=== PATIENT | male | born 1950 | race Caucasian/White ===

== ENCOUNTER 2020-11-29 09:39 | Outpatient (REF) | payer MEDICARE, SELFPAY ==
[2020-11-29 11:36] LABS: Estimated Average Glucose 177 mg/dL; Hemoglobin A1c % 7.8 %
[2020-11-29 11:47] LABS: Alanine Aminotransferase 27 U/L (0-40); Albumin Level 4.5 g/dL (3.5-5.0); Alkaline Phosphatase 62 U/L (39-117); Anion Gap 14 (12-20); Aspartate Amino Transferase 22 U/L (5-37); Bilirubin Total 1.1 mg/dL (0.0-1.0); Blood Urea Nitrogen 23 mg/dL (9-16); Calcium 9.4 mg/dL (8.4-10.2); Carbon Dioxide 27 mmol/L (22-29); Chloride 104 mmol/L (96-108); Cholesterol 146 mg/dL; Estimated Glomerular Filt Rate > 60; Glucose Fasting 167 mg/dL (60-99); HDL Cholesterol 38 mg/dL; LDL Cholesterol Calculated 56 mg/dl; Potassium 5.4 mmol/L (3.3-5.1); Sodium 140 mmol/L (135-145); Triglycerides 260 mg/dL
[2020-11-29 11:54] LABS: Creatinine Urine 185.76 mg/dL
[2020-11-29 12:08] LABS: Microalbum/Creatinine Ratio Ur 342.3 ug/mg cr
[2020-11-29 12:12] LABS: TSH reflex Free T4 0.83 uIU/mL (0.32-4.0)
== END 2020-11-29 09:40 | disposition home or self-care (01) ==
LOC: HO.HMGCLDS 09:39
PROVIDERS: PCP Nurse Practitioner Family; Visit Provider Nurse Practitioner Family
DX: E11.9 Type 2 diabetes mellitus without complications (principal); I42.9 Cardiomyopathy, unspecified; I71.4 Abdominal aortic aneurysm, without rupture; Z12.5 Encounter for screening for malignant neoplasm of prostate
CPT/HCPCS: 36415; 80053; 80061; 82043; 83036; 84153; 84443

== ENCOUNTER 2020-11-30 10:51 | Outpatient (REF) | payer MEDICARE, SELFPAY ==
[2020-11-30 14:37] LABS: Anion Gap 13 (12-20); Carbon Dioxide 29 mmol/L (22-29); Chloride 100 mmol/L (96-108); Potassium 5.1 mmol/L (3.3-5.1); Sodium 137 mmol/L (135-145)
== END 2020-11-30 10:52 | disposition home or self-care (01) ==
LOC: HO.HMGCLDS 10:51
PROVIDERS: PCP Nurse Practitioner Family; Visit Provider Nurse Practitioner Family
DX: E87.5 Hyperkalemia (principal)
CPT/HCPCS: 36415; 80051

== ENCOUNTER → 2020-11-30 12:37 | Outpatient (REF) | payer MEDICARE, SELFPAY ==
--- NOTE | 2020-11-30 12:45 | CA_ITS ---
Transthoracic Echocardiogram Patient (Last, First, Middle): Juan Carlos Steele O Gender: Male Date of : 1950 Age: 70 Procedure Date: 11/30/2020 Procedure Type: Transthoracic Echocardiogram Location: OP Height: 177.8 cm Weight: 106.6 kg BSA: 2.24 m2 Heart Rate: bpm BP: 127 / 76 mmHg Robotic Welder: KAYLAH Tavares MD: Hiarm Carrington [facility] Community Development Officer: Ramon Mcclendon MD Symptoms: cadiomyopathy Study Quality: Good ECG Rhythm: Sinus Conclusions: - 1. Low normal LV systolic function with mild LVH with grade 1 diastolic dysfunction 2. Mild left atrial enlargement 3. Mild mitral and aortic regurgitation 4. No pericardial effusion Findings Left Ventricle Normal left ventricular cavity size. There is mildly increased left ventricular wall thickness. The left ventricular systolic function is low normal. The visually estimated ejection fraction is between 50-55%. Spectral Doppler is indicative of an impaired relaxation filling pattern. E/E prime ratio is <8, consistent with normal filling pressures. Evidence suggests grade I (mild) diastolic dysfunction. Right Ventricle Normal right ventricular cavity size and systolic function. Atria The left atrium is mildly dilated. There is lipomatous hypertrophy of the interatrial septum. Interatrial shunt cannot be excluded. The right atrium is normal in size. Aortic Valve There is mild calcification of the aortic valve. There is mild thickening of the aortic valve. There is no aortic valve stenosis. There is mild aortic valve regurgitation. Mitral Valve There is mild anterior and posterior mitral leaflet thickening. There is moderate mitral annular calcification. There is mild mitral valve regurgitation. There is no mitral valve stenosis. Pulmonic Valve The pulmonic valve was not well visualized. Tricuspid Valve Likely normal tricuspid valve structure and function. Tricuspid regurgitation envelope is inadequate for calculation of right ventricular systolic pressure. Great Vessels All visible segments of the aorta are normal in size. The pulmonary artery was not well visualized. Venous The inferior vena cava is normal in size and collapses greater than 50% with inspiration. Pericardium/Pleural There is no evidence of pericardial effusion. Prior Study Comparison No significant change compared to prior study dated: 09/23/2016. Measurements 2D Linear Measurements IVSd: 1.27 0.6-0.9/0.6-1.0 cm LVIDd: 6.04 3.9-5.3/4.2-5.9 cm LVIDd Index: 2.70 2.4-3.2/2.2-3.1 cm/m2 LVIDs: 4.48 2.0-3.6 cm LVPWd: 1.28 0.7-1.1 cm Ao Root: 4.30 2.1-3.5 cm LA Diam: 4.90 2.7-3.8/3.0-4.0 cm LAIDs Index: 2.19 1.5-2.3 cm/m2 LV Mass: 430.03 67-162/88-224 g LV Mass Index: 191.98 43-95/49-115 g/m2 LVOT Diam: 2.40 3.0+(-)1.3 cm 2D Systolic Function EF 4C: 50.10 >55% EF 2C: 49.30 >55% EF BiP: 48.00 >55% Mitral Valve MV Pk E: 0.52 MV PK A: 0.80 MV Decel Time: 215.00 E/A: 0.70 E'Lateral: 4.24 E'Medial: 5.98 E/E' Med: 8.70 E/E' Lat: 12.30 PHT: 63.00 MVA PHT: 3.49 Decel Ada: 2.42 Aortic Valve AoV Pk Gatito: 1.29 AoV Mn Gatito: 0.93 AoV VTI: 0.28 AoV Pk Grad: 7.00 Aov Mn Grad: 4.00 ALANIS Cont.VTI: 2.97 LVOT LVOT Pk Gatito: 0.79 LVOT Mn Gatito: 0.55 LVOT VTI: 0.18 LVOT Pk Grad: 3.00 LVOT Mn Grad: 1.00 LVOT Diam: 2.40 LVOT Area: 4.52 Diastolic Function MV Pk E: 0.52 MV Pk A: 0.80 E/A: 0.70 E'Medial: 5.98 E/E' Med: 8.70 E' Laterial: 4.24 E/E' Lat: 12.30 Great Vessels Aorta Ao Root-2D: 4.30 2.0-3.7 cm Ao Asc: 3.90 2.1-3.4 cm Ao Arch: 2.70 Updated in Other Vendor System with Status of Final Ramon Mcclendon MD electronically signed on 11/30/2020 5:47:24 PM with status of Final
== END ==
LOC: HO.CARD 12:37
PROVIDERS: PCP Nurse Practitioner Family; Visit Provider Nurse Practitioner Family
DX: I42.9 Cardiomyopathy, unspecified (principal)
CPT/HCPCS: 93306

== ENCOUNTER → 2020-12-25 14:39 | Outpatient (BNVA) | payer MEDICARE, SELFPAY | PROVIDERS: PCP Nurse Practitioner Family; Visit Provider Internal Medicine Cardiovascular Disease | DX: I25.10 Atherosclerotic heart disease of native coronary artery without angina pectoris (principal) | CPT/HCPCS: 93005; 99202 ==

== ENCOUNTER 2021-01-03 08:59 | Outpatient (REF) | payer MEDICARE, SELFPAY ==
--- NOTE | ~2021-01-03 | US_ITS ---
EXAMINATION: US SCREENING AORTIC CLINICAL INFORMATION: Abdominal aortic aneurysm COMPARISON: Abdominal ultrasound on 06/09/2012 TECHNIQUE: Ultrasound of the abdominal aorta was performed. FINDINGS: Real-time ultrasound of the abdominal aorta is performed. AP and transverse measurements were taken of the proximal, mid and distal aorta. Measurements were taken of the right and left iliac arteries. There is focal ectasia of the mid abdominal aorta measuring 2.6 x 2.3 cm. The proximal and distal aorta are normal in caliber. The left internal iliac artery is normal in caliber. There is a 2.1 x 1.8 cm right common iliac artery aneurysm. Incidental note is made of a left hepatic lobe cyst measuring 3.1 x 2.6 x 3.3 cm. US/US abdominal aortic aneurysm IMPRESSION: 1. Stable ectasia of the abdominal aorta measuring up to 2.6 cm. 2. 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
== END 2021-01-03 09:00 | disposition home or self-care (01) ==
LOC: HO.HMGCX 08:59
PROVIDERS: Visit Provider Nurse Practitioner Family
DX: I71.4 Abdominal aortic aneurysm, without rupture (principal)
CPT/HCPCS: 76706

== ENCOUNTER 2021-05-09 10:01 | Outpatient (REF) | payer MEDICARE, SELFPAY ==
[2021-05-09 11:17] LABS: Glucose Urine UA NEG (NEG); Leukocyte Esterase Urine 1+ (NEG); Nitrite Urine NEG (NEG); PH 5.5 (5.0-8.0); Specific Gravity - Urine 1.025 (1.005-1.025); UACC Culture Trigger YES; Urine Blood NEG (NEG); Urine Ketones 5 MG/DL (NEG); Urine Protein TRACE MG/DL (NEG-TRACE)
[2021-05-09 11:38] LABS: Estimated Average Glucose 146 mg/dL; Hemoglobin A1c % 6.7 %
[2021-05-09 11:41] LABS: Alanine Aminotransferase 18 U/L (0-40); Albumin Level 4.5 g/dL (3.5-5.0); Alkaline Phosphatase 55 U/L (39-117); Anion Gap 13 (12-20); Aspartate Amino Transferase 18 U/L (5-37); Bilirubin Total 1.8 mg/dL (0.0-1.0); Blood Urea Nitrogen 30 mg/dL (9-16); Calcium 9.7 mg/dL (8.4-10.2); Carbon Dioxide 25 mmol/L (22-29); Chloride 105 mmol/L (96-108); Cholesterol 125 mg/dL; Estimated Glomerular Filt Rate 60; Glucose Fasting 124 mg/dL (60-99); HDL Cholesterol 39 mg/dL; LDL Cholesterol Calculated 63 mg/dl; Potassium 5.3 mmol/L (3.3-5.1); Sodium 138 mmol/L (135-145); Total Protein 6.9 g/dL (6.5-8.0); Triglycerides 115 mg/dL
[2021-05-09 11:47] LABS: Appearance Urine CLEAR; Color Urine YELLOW
[2021-05-09 11:53] LABS: Mucus Urine 1+ /LPF; RBC Urine 0 /HPF (0); Squamous Epithelial Cell Urine 1+ /LPF
[2021-05-09 12:02] LABS: TSH reflex Free T4 0.38 uIU/mL (0.32-4.0)
== END 2021-05-09 10:02 | disposition home or self-care (01) ==
LOC: HO.HMGCLDS 10:01
PROVIDERS: PCP Nurse Practitioner Family; Visit Provider Nurse Practitioner Family
DX: E11.9 Type 2 diabetes mellitus without complications (principal); E78.1 Pure hyperglyceridemia
CPT/HCPCS: 36415; 80053; 80061; 81001; 81003; 83036; 84443; 87086

== ENCOUNTER 2021-05-25 10:02 | Outpatient (REF) | payer MEDICARE, SELFPAY ==
[2021-05-25 11:46] LABS: Anion Gap 14 (12-20); Bilirubin Direct 0.4 mg/dL (0.0-0.5); Bilirubin Total 0.9 mg/dL (0.0-1.0); Carbon Dioxide 24 mmol/L (22-29); Chloride 105 mmol/L (96-108); Cholesterol 116 mg/dL; HDL Cholesterol 39 mg/dL; LDL Cholesterol Calculated 55 mg/dl; Potassium 5.1 mmol/L (3.3-5.1); Sodium 138 mmol/L (135-145); Triglycerides 110 mg/dL
== END 2021-05-25 10:03 | disposition home or self-care (01) ==
LOC: HO.HMGCLDS 10:02
PROVIDERS: PCP Nurse Practitioner Family; Visit Provider Nurse Practitioner Family
DX: R17 Unspecified jaundice (principal); E11.9 Type 2 diabetes mellitus without complications; E87.5 Hyperkalemia
CPT/HCPCS: 36415; 80051; 80061; 82247; 82248

== ENCOUNTER → 2022-01-11 08:07 | Outpatient (BNVA) | payer MEDICARE, SELFPAY | PROVIDERS: PCP Nurse Practitioner Family; Referring Provider Nurse Practitioner Family; Visit Provider Internal Medicine Cardiovascular Disease | DX: I25.10 Atherosclerotic heart disease of native coronary artery without angina pectoris (principal); I42.9 Cardiomyopathy, unspecified; Z79.82 Long term (current) use of aspirin; Z79.899 Other long term (current) drug therapy | CPT/HCPCS: 93005; 99212 ==

== ENCOUNTER 2022-10-29 09:23 | Outpatient (REF) | payer MEDICARE, SELFPAY ==
[2022-10-29 11:41] LABS: Appearance Urine Clear; Color Urine Yellow; Glucose Urine UA Negative (Negative); Leukocyte Esterase Urine Small (1+) (Negative); Nitrite Urine Negative (Negative); Specific Gravity - Urine 1.015 (1.005-1.025); UMIC TRIGGER UACC YES; Urine Blood Negative (Negative); Urine Ketones Negative (Negative); Urine Protein Trace mg/dL (Neg-Trace)
[2022-10-29 13:20] LABS: Creatinine Urine 59.97 mg/dL; Microalbum/Creatinine Ratio Ur 223.4 ug/mg cr
[2022-10-29 14:11] LABS: MANUAL DIFF FLAG NO
[2022-10-29 14:23] LABS: Bacteria Urine None Seen (None Seen); Hyaline Casts Urine 0-2 /LPF (0-2); RBC Urine 0-2 /HPF (0-2); Squamous Epithelial Cell Urine 0-2 /HPF (0-2); UACC Culture Trigger YES
[2022-10-29 14:26] LABS: Basophils Absolute Auto 0.1 X10*3/uL (0.0-0.2); Basophils Percent Auto 0.7 % (0-2); Eosinophils Absolute Auto 0.2 X10*3/uL (0.0-0.4); Eosinophils Percent Auto 3.2 % (0-4); Hematocrit 43.8 % (42.0-52.0); Hemoglobin 14.5 g/dl (14.0-18.0); Imm Gran Abs Auto 0.02 X10*3/uL (0.00-0.03); Imm Gran Pct Auto 0.3 % (0.0-0.4); Lymphocytes Absolute Auto 1.6 X10*3/uL (1.2-4.9); Lymphocytes Percent Auto 23.6 % (20-40); Mean Corpuscular HGB Conc 33.1 g/dl (31.0-36.0); Mean Corpuscular Hemoglobin 31.7 pg (27.0-33.0); Mean Corpuscular Volume 95.6 fL (80.0-98.0); Mean Platelet Volume 9.3 fL (9.4-12.4); Monocytes Absolute Auto 0.6 X10*3/uL (0.1-1.2); Neutrophils Absolute Auto 4.4 x10*3/uL (2.0-8.3); Neutrophils Percent Auto 64.2 % (45-73); Platelet Count 250 X10*3/uL (160-400); Red Blood Count 4.58 X10*6/uL (4.60-5.80); Red Cell Distribution Width 12.5 % (11.0-16.0); White Blood Count 6.9 X10*3/uL (4.8-10.8)
[2022-10-29 15:32] LABS: Estimated Average Glucose 169 mg/dL; Hemoglobin A1c % 7.5 %
[2022-10-29 19:52] LABS: Alanine Aminotransferase 21 U/L (0-40); Albumin Level 4.5 g/dL (3.5-5.0); Alkaline Phosphatase 59 U/L (39-117); Anion Gap 18 (12-20); Aspartate Amino Transferase 19 U/L (5-37); Bilirubin Total 1.2 mg/dL (0.0-1.0); Blood Urea Nitrogen 25 mg/dL (9-16); Calcium 10.2 mg/dL (8.4-10.2); Carbon Dioxide 23 mmol/L (22-29); Chloride 103 mmol/L (96-108); Cholesterol 148 mg/dL; Estimated Glomerular Filt Rate > 60; Glucose Fasting 162 mg/dL (60-99); HDL Cholesterol 40 mg/dL; LDL Cholesterol Calculated 71 mg/dl; Potassium 4.7 mmol/L (3.3-5.1); Sodium 139 mmol/L (135-145); Triglycerides 186 mg/dL
[2022-10-29 20:25] LABS: TSH reflex Free T4 0.72 uIU/mL (0.32-4.0)
[2022-10-29 20:41] LABS: Prostate Specific Antigen Scr 2.09 ng/mL (<0.05-4.0)
== END 2022-10-29 09:24 | disposition home or self-care (01) ==
LOC: HO.HMGCLDS 09:23
PROVIDERS: PCP Nurse Practitioner Family; Visit Provider Nurse Practitioner Family
DX: Z12.5 Encounter for screening for malignant neoplasm of prostate (principal); E11.9 Type 2 diabetes mellitus without complications
CPT/HCPCS: 36415; 80053; 80061; 81001; 82043; 83036; 84153; 84443; 85025; 87086

== ENCOUNTER 2022-11-06 10:29 | Outpatient (REF) | payer MEDICARE, SELFPAY ==
--- NOTE | ~2022-11-06 | XR_ITS ---
EXAMINATION: XR SHOULDER, RIGHT CLINICAL INFORMATION: Pain. COMPARISON: None TECHNIQUE: AP external rotation, Grashey and scapula Y views of the right shoulder are submitted. FINDINGS: Bony alignment and mineralization are normal. The glenohumeral joint is intact and shows moderately severe osteoarthritic change. The acromioclavicular and coracoclavicular intervals are normal. There is mild osteoarthritic change of the acromioclavicular joint. There is narrowing of the rotator cuff interval, with a distal acromial undersurface osteophyte and cortical irregularity of the greater tuberosity of the proximal right humerus. No abnormal soft tissue calcification or foreign body is seen. There is no right pneumothorax. XR/XR shoulder LT min 2V IMPRESSION: 1. There is moderately severe osteoarthritic change of the right glenohumeral joint, and mild osteoarthritic change is seen of the right acromioclavicular joint. 2. Findings are consistent with right rotator cuff impingement. EXAMINATION: XR SHOULDER, LEFT CLINICAL INFORMATION: Pain. COMPARISON: Radiographs dated 06/03/2016. TECHNIQUE: AP external rotation, Grashey and scapula Y views of the left shoulder are submitted. FINDINGS: Bony alignment and mineralization are normal. The glenohumeral joint is intact and shows marked osteoarthritic change, with exuberant peripheral osteophyte formation most pronounced inferiorly. The acromioclavicular and coracoclavicular intervals are normal. There is narrowing of the rotator cuff interval. There is calcific tendinitis of the left rotator cuff insertion. No foreign body is seen. There is no left pneumothorax. IMPRESSION: 1. There is marked osteoarthritic change of the left glenohumeral joint. 2. Findings are consistent with left rotator cuff impingement and calcific tendinitis.
--- NOTE | ~2022-11-06 | XR_ITS ---
EXAMINATION: XR SHOULDER, RIGHT CLINICAL INFORMATION: Pain. COMPARISON: None TECHNIQUE: AP external rotation, Grashey and scapula Y views of the right shoulder are submitted. FINDINGS: Bony alignment and mineralization are normal. The glenohumeral joint is intact and shows moderately severe osteoarthritic change. The acromioclavicular and coracoclavicular intervals are normal. There is mild osteoarthritic change of the acromioclavicular joint. There is narrowing of the rotator cuff interval, with a distal acromial undersurface osteophyte and cortical irregularity of the greater tuberosity of the proximal right humerus. No abnormal soft tissue calcification or foreign body is seen. There is no right pneumothorax. XR/XR shoulder RT min 2V IMPRESSION: 1. There is moderately severe osteoarthritic change of the right glenohumeral joint, and mild osteoarthritic change is seen of the right acromioclavicular joint. 2. Findings are consistent with right rotator cuff impingement. EXAMINATION: XR SHOULDER, LEFT CLINICAL INFORMATION: Pain. COMPARISON: Radiographs dated 06/03/2016. TECHNIQUE: AP external rotation, Grashey and scapula Y views of the left shoulder are submitted. FINDINGS: Bony alignment and mineralization are normal. The glenohumeral joint is intact and shows marked osteoarthritic change, with exuberant peripheral osteophyte formation most pronounced inferiorly. The acromioclavicular and coracoclavicular intervals are normal. There is narrowing of the rotator cuff interval. There is calcific tendinitis of the left rotator cuff insertion. No foreign body is seen. There is no left pneumothorax. IMPRESSION: 1. There is marked osteoarthritic change of the left glenohumeral joint. 2. Findings are consistent with left rotator cuff impingement and calcific tendinitis.
[2022-11-06 12:46] LABS: Folate 7.2 ng/mL (> or = 4.0); Vitamin B12 > 2000 pg/mL (200-900)
[2022-11-06 14:00] LABS: Appearance Urine Cloudy; Color Urine Yellow; Glucose Urine UA Negative (Negative); Leukocyte Esterase Urine Large (3+) (Negative); Nitrite Urine Negative (Negative); UMIC TRIGGER UACC YES; Urine Blood Negative (Negative); Urine Ketones Negative (Negative); Urine Protein 30 (1+) mg/dL (Neg-Trace)
[2022-11-06 14:04] LABS: Bacteria Urine None Seen (None Seen); Hyaline Casts Urine 0-2 /LPF (0-2); RBC Urine 0-2 /HPF (0-2); Squamous Epithelial Cell Urine 0-2 /HPF (0-2); UACC Culture Trigger YES; WBC Urine >50 /HPF (0-5)
== END 2022-11-06 10:30 | disposition home or self-care (01) ==
LOC: HO.HMGCLDS 10:29
PROVIDERS: PCP Nurse Practitioner Family; Visit Provider Nurse Practitioner Family
DX: E53.8 Deficiency of other specified B group vitamins (principal); M25.551 Pain in right hip; M25.552 Pain in left hip; E11.9 Type 2 diabetes mellitus without complications
CPT/HCPCS: 36415; 73030; 81001; 81003; 82607; 82746; 87086

== ENCOUNTER 2023-01-10 13:00 | Outpatient (RCR) | payer MEDICARE, SELFPAY ==
--- NOTE | 2022-11-08 16:14 | MHC.PT.EP ---
[facility] [place] Office [place] Office [place] Office [address] Rodger Hutchins [address] [phone] F: [phone] F: [phone] F: [phone] F: [phone] Physical Therapy Plan of Care Date of Evaluation: Date of Surgery: NA Diagnosis: B SHOULDER PAIN Assessment: Pt IS 72 YO LHD M REFERRED TO PT FROM MICHELLE CLARKE FINANCIAL AID DIRECTOR WITH SHOULDER PAIN. HAS TROUBLE RAISING ARM OVERHEAD. Pt REPORTS L SHLDER PAIN WHICH NOW SEEMS TO HAVE MOVED TO R SHLDER. 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 REPORTS INCIDENT 5 YEARS CONTUSIONS/ABRASIONS AND FX RIB, WAS TOLD AT THAT POINT WAS TOLD HE HAD MASSIVE ARTHRITIS. REPORTS SHOULDER PAIN STARTED THEN. 4-5X/WK TABLE TENNIS (SORT OF A JUICE TESTER/IR AT SHOULDER MOVEMENT). REPORTS HAS TRIED ANSELMO [facility] AT [facility] AND GETS CRUNCHY SOUNDS'. NO C/O SIGNIF PARESTHESIA. XRAY + CALCIFIC ARTHRITIS PRESENTS TO PT WITH POOR POSTURE, SIGNIFICANT DECREASE IN SHLDER ROM AND STRENGTH (L IS WORSE THAN R), POOR POSTURE, PAIN, CLUNK/GRIND/CREPITUS B SHLDERS. +MODIFIED IMPINGEMENT L AND SIGNS OF RC TEAR (OR MULTIPLE) ON L (POOR SHLDER MECHANICS ON R SIDE ALSO). SHOULD BENEFIT FROM PT TO ADDRESS THESE ISSUES. WILL BE SEEN 2X/WK X 2 WEEKS TO ASSESS RESULTS FROM INIT PT, THEN MAY BENEFIT FROM ORTHO CONSULT/CORTISONE INJECTIONS. MRI MAY BE WARRENTED ALSO. Frequency and Duration: The patient will be seen 2X/WK X 2 WKS THEN 1X/WK X 4 MORE WEEKS Short Term Goals: 1. INCREASED AWARENESS POSTURE AND SHOULDER CARE 2. INCREASED SHLDER ROM 10 DEGREES T/O Senior Care Goals: 1. I HEP WITH DC EX PLAN 2. DECREASED SHLDER PAIN AT LEAST 50% B WITH ADLS 3. INCREASED SHLDER ROM 20 DEGREES T/O 4. IMPROVED SPADI (66/130 SOC) Treatment Plan: Modalities to reduce pain, spasms and effusion. Manual therapy to restore motion and function. Therapeutic exercise to improve strength and flexibility. Neuromuscular re-education for posture and balance. Therapeutic activities to return to functional activities of daily living. Electronically signed by: LEONARDO CHILDERS PT Please sign and return to therapist. Thank you for your referral.
--- NOTE | 2023-01-10 14:28 | MHC.PT.DC ---
[facility] [place] [facility] [place] Office [place] Office [address] Rodger Hutchins [address] [phone] F: [phone] F: [phone] F: [phone] F: [phone] Physical Therapy Discharge Report Diagnosis: B SHOULDER PAIN Date of Surgery: NA Date of Evaluation: 11/08/22 Date of Discharge: 01/10/23 Treatments to Date: 13 Cancellations to Date: No Shows to Date: Discharge Status: Achieved Goals Improved Function Independent with HEP Recommend MD Follow-up Discharge Summary: HAS MET MOST PT GOALS, HAS GOOD HOME PROGRAM. TO START POOL EXERCISE CLASS. ORTHO FU (LIKELY SUPRASPINATUS TEAR L) Electronically signed by: LEONARDO CHILDERS PT Please sign and return to therapist. Thank you for your referral.
== END 2023-01-10 14:28 | disposition home or self-care (01) ==
LOC: HO.PT 13:00
PROVIDERS: PCP Nurse Practitioner Family; Visit Provider Nurse Practitioner Family
DX: R29.898 Other symptoms and signs involving the musculoskeletal system (principal)
CPT/HCPCS: 97110; 97140; 97162; 97530; 97535

== ENCOUNTER 2023-05-15 09:41 | Outpatient (AMB) | payer MEDICARE, SELFPAY ==
[2023-05-15 10:00] VITALS: BP 146/70; PULSE 61; O2SAT 96; BMI 32.1
--- NOTE | 2023-05-15 10:00 | A.OFFPC_ITS ---
Vital Signs 05/15/23 10:00 05/15/23 11:19 Height 5 ft 9 in Weight 217 lb 2 oz BMI 32.1 BP 146/70 H 140/82 H Blood Pressure Location Rt brachial Rt brachial Position Sitting Sitting Pulse 61 Pulse Source Pulse Oximeter Pulse Oximetry (%) 96 Oxygen Delivery Method Room Air Intake Visit Reasons: 3 Month f/u (per AG) Allergies cat dander Allergy (Unknown, Verified 05/15/23 10:02) congestion Tobacco use date assessed: 05/15/23 Fall risk assessment: No Falls in past year Last assessed Fall Risk: 05/15/23 Dental Screening Dental Screen Date: 05/15/23 Did you have a dental visit in the last 12 months?: No Did you have a dental problem in the last 6 months where you did not have access to dental care?: No Was dental information given to patient?: Patient declined HPI 3 Month f/u (per AG) HPI Details Pt is a diabetic, on an ARB and a statin. A1c in office today is 6.8. Microalbumin is up to date. Denies polyuria, polydipsia, and neuropathy. Pt denies any signs and symptoms of hypoglycemia and does know how to correct it. Pt is following up with cardiology. Hx of AAA, will order repeat US. [facility] Medical History AAA (abdominal aortic aneurysm) CAD (coronary artery disease) Cardiomyopathy Dyslipidemia HTN (hypertension) GUTIERREZ (obstructive sleep apnea) Surgical History No pertinent past surgical history Family History Father Asthma Bronchitis Mother Lung cancer Social History Housing: House Alcohol intake: never Patient Tobacco Use Status: Never used Tobacco e-Cigarette/Vaping Use: Never Used Second Hand Smoke Exposure: No service: No Current occupational status: retired Cognitive needs: No Hearing needs: No Vision needs: No Questionnaire Thrive Questionnaire Date Thrive assessed: 10/30/22 MARCIAL-7 AMB Questionnaire MARCIAL-7 Date MARCIAL - 7 assessed: 10/30/22 Source: Developed by Drs. Juan Carlos Hale, Drea Mckinney, Krish Menjivar and colleagues, with an educational richelle from [employer]. Review of Systems Const Reports as per HPI Physical exam (Primary Care) Vital Signs: Last Vital Signs Pulse 61 05/15/23 10:00 BP 140/82 H 05/15/23 11:19 Pulse Ox 96 05/15/23 10:00 Oxygen Delivery Method Room Air 05/15/23 10:00 BMI result Body Mass Index 32.1 Tobacco/Smoking Status: Tobacco use Status Tobacco use date assessed 05/15/23 05/15/23 10:08 Patient Tobacco Use Status Never used Tobacco 05/15/23 10:08 e-Cigarette/Vaping Use Never Used 05/15/23 10:08 Thrive Assessment: Date of Thrive Assessment Date Thrive assessed 10/30/22 05/15/23 10:08 Const General: cooperative Nutritional Appearance: obese Orientation/consciousness: patient oriented x3 Resp Effort & Inspection: normal respiratory effort Auscultation: clear to auscultation bilaterally Cardio Rate: regular rate Rhythm: regular rhythm Heart sounds: S1 normal heart sound present and S2 normal heart sound present Neuro General: patient oriented x3 Extrem Other: bilat feet: + sensation with use of monofilament, feet intact without lesions Left lower extremity: edema Details: pitting and 1+ Psych Appearance: grossly normal Mental Status: mental status grossly normal Speech and movement: Normal speech and movement present Affect: normal affect Attitude: cooperative Thought process: Normal thought process present Thought content: Normal thought content present Insight: Good insight present (Psych) Judgement: Good judgement present (Psych) Results AMB Hemoglobin A1c AMB Hemoglobin A1c 6.8 % Last Edit by Lamar Garcia CMA on 05/15/23 10: 31 Immunizations pneumoc 20-joseph conj-dip cr(PF) Performing Provider: PALMIRA Townsend Administered by: Lamar Garcia CMA on 05/15/23 11:18 Dose Route Admin Location Lot Number Expiration Date NDC President And Chief Operating Officer 0.5 mL IM Right Deltoid [id number] 07/19/24 2284-8822-14 WYETH/PFIZER VIS Given Date VIS Provided VIS Publication Date 05/15/23 Single Vaccine 21 Eligibility Eligibility Date Funding Source Not VFC Eligible 05/15/23 Private Results Reviewed Results Reviewed: Laboratory Last Values Hgb A1c (Clinic) 6.8 % (4.0-6.0) H 05/15/23 10:29 Assessment and Plan Assessment & Plan (1) AAA (abdominal aortic aneurysm): Code(s): I71.4 - Abdominal aortic aneurysm, without rupture Plan: US ordered (2) Diabetes: Code(s): E11.9 - Type 2 diabetes mellitus without complications Plan The patient agreed to the use of a medical technologist clinical for this encounter. Scribed for DEVON Davila- by Joleen Louise medical technologist clinical, on 05/15/2023 at 10:40 EST. Orders: Orders Comprehensive [place]. Panel Fast Today E11.9 - Type 2 diabetes mellitus without complications Lipid Panel Today E11.9 - Type 2 diabetes mellitus without complications TSH reflex Free T4 Today E11.9 - Type 2 diabetes mellitus without complications Complete Blood Count Auto Diff Today E11.9 - Type 2 diabetes mellitus without complications UA CC w/rflx Micro + Cult Today E11.9 - Type 2 diabetes mellitus without complications US abdominal aortic aneurysm Today I71.4 - Abdominal aortic aneurysm, without rupture Pneumococcal 20 Immunization Today Z23 - Encounter for immunization AMB Hemoglobin A1c Today E11.9 - Type 2 diabetes mellitus without complications Coding Level of Care Code Est Pt Level 3 (66128) Diagnoses AAA (abdominal aortic aneurysm) I71.4 Diabetes E11.9
[2023-05-15 11:19] VITALS: BP 140/82
== END 2023-05-15 11:14 | disposition home or self-care (01) ==
PROVIDERS: Visit Provider Nurse Practitioner Family
DX: I71.40 Abdominal aortic aneurysm, without rupture, unspecified (principal); E11.9 Type 2 diabetes mellitus without complications; Z23 Encounter for immunization
CPT/HCPCS: 83036; 90471; 90677; 99213

== ENCOUNTER 2023-05-21 08:55 | Outpatient (REF) | payer MEDICARE, SELFPAY ==
--- NOTE | ~2023-05-21 | US_ITS ---
EXAMINATION: US RETROPERITONEAL LIMITED (AORTA) CLINICAL INFORMATION: Abdominal aortic aneurysm, without rupture. COMPARISON: US retroperitoneal limited (aorta) 01/03/2021. TECHNIQUE: Prajapati-scale, color Doppler and spectral Doppler evaluation of the abdominal aorta. Technically slightly limited study secondary to bowel gas. FINDINGS: Calcified plaque is seen throughout the infrarenal abdominal aorta and common iliac arteries. The measurements of the aorta in maximum AP and transverse dimensions respectively are as follows: Proximal: 2.9 x 3.1 cm. This is stable compared to previous studies. Mid: 2.4 x 2.1 cm. This is essentially stable since previous study with less than 5 mm change lead 2 years. Distal: 2.0 x 2.1 cm. This is essentially stable with less than 5 mm change lead 2 years. PSV: 108 cm/s. The measurements of the common iliac arteries in maximum AP and TRV dimensions are as follows: Right Common Iliac Artery: 1.2 x 1.2 cm. There is a focal aneurysm present measuring 2.2 x 2.2 cm in size which previously measured 1.8 x 2.1 cm in size but has a similar appearance. Left Common Iliac Artery: 1.5 x 1.5 cm. US/US abdominal aortic aneurysm IMPRESSION: Essentially stable proximal abdominal aortic aneurysm and right common iliac artery aneurysm. Followup examination in 3 years is recommended..
== END 2023-05-21 08:56 | disposition home or self-care (01) ==
LOC: HO.HMGCX 08:55
PROVIDERS: PCP Nurse Practitioner Family; Visit Provider Nurse Practitioner Family
DX: I71.40 Abdominal aortic aneurysm, without rupture, unspecified (principal)
CPT/HCPCS: 76706

== ENCOUNTER 2023-07-23 08:34 | Outpatient (REF) | payer MEDICARE, SELFPAY ==
[2023-07-23 11:21] LABS: MANUAL DIFF FLAG NO
[2023-07-23 11:25] LABS: Appearance Urine Clear; Color Urine Yellow; Glucose Urine UA Negative (Negative); Leukocyte Esterase Urine Moderate (2+) (Negative); Nitrite Urine Negative (Negative); UMIC TRIGGER UACC YES; Urine Blood Negative (Negative); Urine Ketones Negative (Negative); Urine Protein 100 (2+) mg/dL (Neg-Trace)
[2023-07-23 11:29] LABS: Bacteria Urine None Seen (None Seen); Hyaline Casts Urine 0-2 /LPF (0-2); RBC Urine 0-2 /HPF (0-2); Squamous Epithelial Cell Urine 0-2 /HPF (0-2); UACC Culture Trigger YES; WBC Urine >50 /HPF (0-5)
[2023-07-23 11:34] LABS: Basophils Percent Auto 0.7 % (0-2); Eosinophils Absolute Auto 0.2 X10*3/uL (0.0-0.4); Eosinophils Percent Auto 3.8 % (0-4); Hematocrit 39.8 % (42.0-52.0); Imm Gran Abs Auto 0.03 X10*3/uL (0.00-0.03); Imm Gran Pct Auto 0.5 % (0.0-0.4); Lymphocytes Absolute Auto 1.6 X10*3/uL (1.2-4.9); Lymphocytes Percent Auto 25.4 % (20-40); Mean Corpuscular HGB Conc 32.7 g/dl (31.0-36.0); Mean Corpuscular Hemoglobin 31.9 pg (27.0-33.0); Mean Corpuscular Volume 97.5 fL (80.0-98.0); Mean Platelet Volume 9.1 fL (9.4-12.4); Monocytes Absolute Auto 0.5 X10*3/uL (0.1-1.2); Neutrophils Absolute Auto 3.8 x10*3/uL (2.0-8.3); Neutrophils Percent Auto 61.6 % (45-73); Platelet Count 268 X10*3/uL (160-400); Red Blood Count 4.08 X10*6/uL (4.60-5.80); Red Cell Distribution Width 12.4 % (11.0-16.0); White Blood Count 6.1 X10*3/uL (4.8-10.8)
[2023-07-23 12:08] LABS: Alanine Aminotransferase 15 U/L (0-40); Alkaline Phosphatase 57 U/L (39-117); Anion Gap 13 (12-20); Aspartate Amino Transferase 16 U/L (5-37); Bilirubin Total 0.6 mg/dL (0.0-1.0); Blood Urea Nitrogen 16 mg/dL (9-16); Calcium 9.8 mg/dL (8.4-10.2); Carbon Dioxide 23 mmol/L (22-29); Chloride 108 mmol/L (96-108); Cholesterol 120 mg/dL (<200); Estimated Glomerular Filt Rate > 60; Glucose Fasting 123 mg/dL (60-99); HDL Cholesterol 37 mg/dL (>40); LDL Cholesterol Calculated 61 mg/dL (<100); Potassium 4.2 mmol/L (3.3-5.1); Sodium 140 mmol/L (135-145); Total Protein 6.6 g/dL (6.5-8.0); Triglycerides 112 mg/dL (<150)
[2023-07-23 12:15] LABS: TSH reflex Free T4 0.55 uIU/mL (0.32-4.0)
== END 2023-07-23 08:35 | disposition home or self-care (01) ==
LOC: HO.HMGCLDS 08:34
PROVIDERS: PCP Nurse Practitioner Family; Visit Provider Nurse Practitioner Family
DX: E11.9 Type 2 diabetes mellitus without complications (principal); R30.0 Dysuria
CPT/HCPCS: 36415; 80053; 80061; 81001; 84443; 85025; 87086

== ENCOUNTER 2023-08-06 | Outpatient (REF) | payer MEDICARE, SELFPAY ==
[2023-08-06 14:00] LABS: FIT1 NEGATIVE (NEGATIVE)
[2023-08-06 14:01] LABS: FIT Int Ctl YES; FIT2 NEGATIVE (NEGATIVE)
== END 2023-08-06 00:01 | disposition home or self-care (01) ==
LOC: HO.HMGCLNP
PROVIDERS: PCP Nurse Practitioner Family; Visit Provider Nurse Practitioner Family
DX: E53.8 Deficiency of other specified B group vitamins (principal); D64.9 Anemia, unspecified
CPT/HCPCS: 82274

== ENCOUNTER 2023-09-26 06:43 | Day surgery (SDC) | payer MEDICARE, SELFPAY ==
[2023-09-24 10:36] VITALS: BMI 31.7
[2023-09-24 11:20] VITALS: BMI 30.1
--- NOTE | 2023-09-24 14:15 | HO.ANESPROP2 ---
HPI - Anesthesia Eval Consult details Narrative: 73yo M for Colonoscopy [facility] Active Problems Active Problems: All Active Problems (Updated 07/24/23 @ 14:14 by PALMIRA Townsend) Anemia (Acute) Microalbuminuria (Acute) Shoulder joint pain (Acute) B12 deficiency (Acute) Screening for colon cancer (Acute) Bilateral arm weakness (Acute) Elevated bilirubin (Acute) Hyperkalemia (Acute) High triglycerides (Acute) Screening PSA (prostate specific antigen) (Acute) Diabetes (Acute) CAD (coronary artery disease) (Acute) AAA (abdominal aortic aneurysm) (Acute) Cardiomyopathy (Acute) Past Medical History Medical History (Updated 07/24/23 @ 14:14 by PALMIRA Townsend) CAD (coronary artery disease) AAA (abdominal aortic aneurysm) GUTIERREZ (obstructive sleep apnea) Cardiomyopathy HTN (hypertension) Dyslipidemia Family History Family History Father Asthma Bronchitis Mother Lung cancer Surgical History Surgical History (Updated 09/24/23 @ 11:23 by Kayli Ham RN) Hx of colonoscopy Hx of appendectomy Social History Social History Household Members Other:: sister Housing: House Are you a primary health care administrator to a significant other at home: No Do you presently have visiting nurse or other home services: No Alcohol intake: never Comment: aware of trip hazard Patient Tobacco Use Status: Never used Tobacco e-Cigarette/Vaping Use: Never Used Second Hand Smoke Exposure: No Use of substances other than those prescribed or required for medical reasons: No Have you been hit, kicked, punched, or otherwise hurt by someone within the past year? If so, by whom?: No Are you DNR?: No Advance Directives: No Advance Directives Information Provided: Yes Advance Directives on File: No Recently lost weight without trying: No Poor oral hygiene: No service: No Current occupational status: retired Cognitive needs: No Hearing needs: No Vision needs: No Meds Allergies Allergy/AdvReac Type Severity Reaction Status Date / Time cat dander Allergy Unknown congestion Verified 05/15/23 10:02 Home Medications Medication Instructions Recorded Confirmed Last Taken Type cholecalciferol (vitamin D3) 25 25 mcg PO DAILY 11/29/20 09/24/23 Unknown History mcg (1,000 unit) capsule flu vacc 2020-21(65yr ml IM 11/29/20 01/11/22 Unknown History up)-MF59C(PF) 60 mcg(15 mcgx4)/0.5 mL IM syringe turmeric 400 mg capsule mg PO 11/29/20 01/11/22 Unknown History zinc acetate PO 11/29/20 01/11/22 Unknown History aspirin 81 mg tablet,delayed 81 mg PO DAILY 10/30/22 09/24/23 Unknown History release hydrochlorothiazide 25 mg tablet 25 mg PO DAILY 10/30/22 09/24/23 Unknown History carvedilol 6.25 mg tablet 6.25 mg PO BID 05/15/23 09/24/23 Unknown History sacubitril 49 mg-valsartan 51 mg 1 tab PO BID 05/15/23 09/24/23 Unknown History tablet (Entresto) Exam Height,Weight and Vital Signs: Height 5 ft 10 in Weight 95.254 kg
--- NOTE | 2023-09-25 09:00 | P.CONAN_ITS ---
Documented by User: Blanca Benoit NP 09/25/23 09:25 HPI - Anesthesia Eval Consult details Narrative: 73yo M for Colonoscopy Cardiac optimized Follows [facility] cardiology for AAA, CAD, [facility] Active Problems Active Problems: All Active Problems (Updated 07/24/23 @ 14:14 by Hiram Carrington, [facility]) Anemia (Acute) Microalbuminuria (Acute) Shoulder joint pain (Acute) B12 deficiency (Acute) Screening for colon cancer (Acute) Bilateral arm weakness (Acute) Elevated bilirubin (Acute) Hyperkalemia (Acute) High triglycerides (Acute) Screening PSA (prostate specific antigen) (Acute) Diabetes (Acute) CAD (coronary artery disease) (Acute) AAA (abdominal aortic aneurysm) (Acute) Cardiomyopathy (Acute) Past Medical History Medical History CAD (coronary artery disease) AAA (abdominal aortic aneurysm) GUTIERREZ (obstructive sleep apnea) Cardiomyopathy HTN (hypertension) Dyslipidemia Family History Family History Father Asthma Bronchitis Mother Lung cancer Surgical History Surgical History Hx of colonoscopy Hx of appendectomy Social History Social History Household Members Other:: sister Housing: House Are you a primary home care scheduler to a significant other at home: No Do you presently have visiting nurse or other home services: No Alcohol intake: never Comment: aware of trip hazard Patient Tobacco Use Status: Never used Tobacco e-Cigarette/Vaping Use: Never Used Second Hand Smoke Exposure: No Use of substances other than those prescribed or required for medical reasons: No Have you been hit, kicked, punched, or otherwise hurt by someone within the past year? If so, by whom?: No Are you DNR?: No Advance Directives: No Advance Directives Information Provided: Yes Advance Directives on File: No Recently lost weight without trying: No Poor oral hygiene: No service: No Current occupational status: retired Cognitive needs: No Hearing needs: No Vision needs: No Meds Allergies Allergy/AdvReac Type Severity Reaction Status Date / Time cat dander Allergy Unknown congestion Verified 09/26/23 06:50 Home Medications Medication Instructions Recorded Confirmed Last Taken Type cholecalciferol (vitamin D3) 25 25 mcg PO DAILY 11/29/20 09/24/23 Unknown History mcg (1,000 unit) capsule flu vacc 2020-(65yr ml IM 11/29/20 01/11/22 Unknown History up)-MF59C(PF) 60 mcg(15 mcgx4)/0.5 mL IM syringe turmeric 400 mg capsule mg PO 11/29/20 01/11/22 Unknown History zinc acetate PO 11/29/20 01/11/22 Unknown History aspirin 81 mg tablet,delayed 81 mg PO DAILY 10/30/22 09/26/23 09/25/23 History release hydrochlorothiazide 25 mg tablet 25 mg PO DAILY 10/30/22 09/24/23 Unknown History carvedilol 6.25 mg tablet 6.25 mg PO BID 05/15/23 09/26/23 09/26/23 History sacubitril 49 mg-valsartan 51 mg 1 tab PO BID 05/15/23 09/24/23 Unknown History tablet (Entresto) Exam Height,Weight and Vital Signs: Height 5 ft 10 in Weight 95.254 kg Pertinent Lab Results Pertinent Lab Results: Laboratory Tests 07/23/23 08:38 WBC 6.1 Hgb 13.0 L Hct 39.8 L Plt Count 268 Sodium 140 Potassium 4.2 Chloride 108 Carbon Dioxide 23 BUN 16 Creatinine 0.87 Narrative Narrative: EKG 02/2023 SB with 1st deg AV block LAD Nonspecific IV conduction block ECHO 12/2022 LV size at upper limit of normal. LV wall thickness is mildly increased. LV systolic function is moderately reduced. LVEF 30-35%. Moderate global hypokinesis of LV. Unable to assess diastolic function d/t E/A fusion. LA moderately dilated. RV nml in size. RV systolic function is reduced. Cardiac cath 02/2023 Left dominant coronary circulation Moderate mid LAD stenosis Severe D2 stenosis Moderately severe OM1 stenosis Occluded left PDA Severe RCA stenosis, small, dominant Medically managed Cardiac MRI 05/2023 on chart Assessment and Plan Assessment Anesthesia Assessment: Chart Reviewed Documented by User: Nata Quinn MD 09/26/23 07:59 PMF Past Medical History Medical History CAD (coronary artery disease) AAA (abdominal aortic aneurysm) GUTIERREZ (obstructive sleep apnea) Cardiomyopathy HTN (hypertension) Dyslipidemia Family History Family History Father Asthma Bronchitis Mother Lung cancer Surgical History Surgical History Hx of colonoscopy Hx of appendectomy History of Problems with Anesthesia: No Social History Social History Household Members Other:: sister Housing: House Are you a primary home care scheduler to a significant other at home: No Do you presently have visiting nurse or other home services: No Alcohol intake: never Comment: aware of trip hazard Patient Tobacco Use Status: Never used Tobacco e-Cigarette/Vaping Use: Never Used Second Hand Smoke Exposure: No Use of substances other than those prescribed or required for medical reasons: No Have you been hit, kicked, punched, or otherwise hurt by someone within the past year? If so, by whom?: No Are you DNR?: No Advance Directives: No Advance Directives Information Provided: Yes Advance Directives on File: No Recently lost weight without trying: No Poor oral hygiene: No service: No Current occupational status: retired Cognitive needs: No Hearing needs: No Vision needs: No Meds Allergies Allergy/AdvReac Type Severity Reaction Status Date / Time cat dander Allergy Unknown congestion Verified 09/26/23 06:50 Home Medications Medication Instructions Recorded Confirmed Last Taken Type cholecalciferol (vitamin D3) 25 25 mcg PO DAILY 11/29/20 09/24/23 Unknown History mcg (1,000 unit) capsule flu vacc 2020-21(65yr ml IM 11/29/20 01/11/22 Unknown History up)-MF59C(PF) 60 mcg(15 mcgx4)/0.5 mL IM syringe turmeric 400 mg capsule mg PO 11/29/20 01/11/22 Unknown History zinc acetate PO 11/29/20 01/11/22 Unknown History aspirin 81 mg tablet,delayed 81 mg PO DAILY 10/30/22 09/26/23 09/25/23 History release hydrochlorothiazide 25 mg tablet 25 mg PO DAILY 10/30/22 09/24/23 Unknown History carvedilol 6.25 mg tablet 6.25 mg PO BID 05/15/23 09/26/23 09/26/23 History sacubitril 49 mg-valsartan 51 mg 1 tab PO BID 05/15/23 09/24/23 Unknown History tablet (Entresto) Exam Airway Mallampati Class: III TM Dist: >3cm Neck ROM: Limited Loose/Missing/Broken Teeth: No Heart: RRR Lungs: CTA Assessment and Plan Assessment Anesthesia Assessment: Anesthesia Plan Discussed Final Anesthetic Review History of Problems with Anesthesia: No NPO: Yes ASA Class: III Final Preanesthetic Review: Meds/Allgs Chart Reviewed, Consent Obtained/Reviewed and Anes Risks/Benef Reviewed Patient Risk: Intermediate Procedure Risk: Low Anesthetic Plan Anesthetic Plan: MAC: Disposition: Standard PACU
[2023-09-26 07:04] VITALS: BP 144/60; PULSE 94; RESP 16; TEMP 36.2; O2SAT 94
[2023-09-26] MEDS: Lactated Ringers 1,000 ML 50 ML IVCONT (07:06)
[2023-09-26 07:13] LABS: Glucose, Whole Blood 122 mg/dL (60-115)
--- NOTE | 2023-09-26 07:54 | MHC.SHP ---
Pre-Procedural Eval Section A Date of Service: 09/26/23 Section B Chief Complaint: screening Details of Present Illness: see h*p no changes Relevant Family History (Specify if Yes): No Relevant Social History: None Present Medications: see Short Stay Collaborative assessment Medical History: No relevant PMH History of Previous Operations: No relevant previous surgery Allergies: Allergies Allergy/AdvReac Type Severity Reaction Status Date / Time cat dander Allergy Unknown congestion Verified 09/26/23 06:50 Review of Systems Sugical H&P ROS: Negative: Constitution, Cardiovascular, Respiratory, Neurological, Psychiatric, Hem-Onc, Allergic/Immunologic, Gastrointestinal, Genitourinary, Musculoskeletal, Integumentary, Endocrine and Eyes/Ears/Nose/Throat Exam Surgical H&P Exam: Normal: HEENT, Normal: Heart, Normal: Lungs, Normal: Extremities, Normal: Abdomen, Normal: Skin and Normal: Neurological Plan Diagnosis/Plan: Unchanged I have reviewed the history and physical and performed a pertinent physical examination on my patient. No changes have occurred unless specified. Time Spent With Patient Time: Total time managing care of this patient today ____ minutes.
[2023-09-26 08:38] VITALS: BP 105/52; PULSE 62; RESP 18; TEMP 36.6; O2SAT 95
[2023-09-26 08:53] VITALS: BP 127/64; PULSE 58; RESP 16; O2SAT 95
[2023-09-26 09:08] VITALS: BP 113/68; PULSE 60; RESP 16; TEMP 36.4; O2SAT 95
--- NOTE | 2023-09-26 09:45 | OP_ITS ---
DATE OF SERVICE: 09/26/2023 SURGEON: Sid Bobo MD INDICATIONS: Colon cancer screening. PREOPERATIVE DIAGNOSIS: POSTOPERATIVE DIAGNOSIS: PROCEDURE PERFORMED: Colonoscopy to the cecum with biopsy and snare polypectomy. ESTIMATED BLOOD LOSS: COMPLICATIONS: ANESTHESIA: Monitored anesthesia care. ASSISTANTS: SPECIMENS: DESCRIPTION OF PROCEDURE: A history and physical performed. The risks and benefits of procedure explained to the patient. Informed consent was obtained. The patient was placed in the left lateral decubitus position. A digital rectal exam was performed and was found to be normal. The Olympus pediatric video colonoscope was introduced into the rectum and advanced to the cecum. The cecum was identified by transillumination, palpation, and identification of the ileocecal valve. Examination was performed and the scope was removed. He tolerated the procedure well and was taken to recovery in stable condition. FINDINGS: The terminal ileum was not examined. The visualized colonic mucosa was normal. There was some liquid stool coating the mucosa limiting the sensitivity of the examination for detection of small polyps. This was washed and suctioned. There was extensive diverticulosis throughout the sigmoid, descending colon and remaining colon. Multiple polyps were identified. These were removed with a combination of snare and biopsy forceps. The polyps were located at 75 cm, cecum, 80 cm and 65 cm. Retroflexed examination showed moderate-sized internal hemorrhoids. IMPRESSION: Colon polyps. RECOMMENDATION: Follow up with the biopsy results. MD CHRIS Carvalho/ADELINE / [id number] MTDD
== END 2023-09-26 09:05 | disposition home or self-care (01) ==
PROVIDERS: PCP Nurse Practitioner Family; Visit Provider Internal Medicine Gastroenterology
PROC: 0DJD8ZZ Inspection of Lower Intestinal Tract, Via Natural or Artificial Opening Endoscopic (ICD-10-PCS; CPT 45378; principal; 2023-09-26 08:10)
DX: Z12.11 Encounter for screening for malignant neoplasm of colon (principal); D12.0 Benign neoplasm of cecum; D12.4 Benign neoplasm of descending colon; K57.30 Diverticulosis of large intestine without perforation or abscess without bleeding; K64.8 Other hemorrhoids; E11.9 Type 2 diabetes mellitus without complications; E78.5 Hyperlipidemia, unspecified; D64.9 Anemia, unspecified; E53.8 Deficiency of other specified B group vitamins; G47.30 Sleep apnea, unspecified; I71.40 Abdominal aortic aneurysm, without rupture, unspecified; I42.9 Cardiomyopathy, unspecified; Z79.82 Long term (current) use of aspirin; Z79.02 Long term (current) use of antithrombotics/antiplatelets; Z79.84 Long term (current) use of oral hypoglycemic drugs
CPT/HCPCS: 45385; 45380; 82947; 88305; J2704

== ENCOUNTER 2023-11-13 08:47 | Outpatient (AMB) | payer MEDICARE, SELFPAY ==
[2023-11-13 09:02] VITALS: BP 138/70; PULSE 57; O2SAT 97; BMI 30.8
--- NOTE | 2023-11-13 09:02 | A.OFFPC_ITS ---
Vital Signs 11/13/23 09:02 Height 5 ft 10 in Weight 215 lb BMI 30.8 BP 138/70 Blood Pressure Location Rt brachial Position Sitting Pulse 57 Pulse Source Pulse Oximeter Pulse Oximetry (%) 97 Oxygen Delivery Method Room Air Intake Visit Reasons: Annual PE Intake Note: Pt is here for Annual PE Allergies cat dander Allergy (Unknown, Verified 11/13/23 11:51) congestion Medication List - Last Reconciled 11/13/23 by Hiram Carrington, [facility]- amlodipine 10 mg PO DAILY aspirin 81 mg PO DAILY carvedilol 6.25 mg PO BID cholecalciferol (vitamin D3) 25 mcg PO DAILY flu vac 2020 [id number](PF) 60 mcg (15 mcg x 4)/0.5 mL mL IM hydrochlorothiazide 25 mg PO DAILY metformin 1,000 mg (2 x 500 mg) PO BID omega 2-ltf-tvv-fish oil 1,200 (144-216) mg (Fish Oil) 1 cap PO BID rosuvastatin 10 mg PO BEDTIME sacubitril-valsartan 49-51 mg (Entresto) 1 tab PO BID turmeric mg PO zinc acetate PO Tobacco use date assessed: 11/13/23 Fall risk assessment: No Falls in past year Last assessed Fall Risk: 11/13/23 Dental Screening Dental Screen Date: 11/13/23 Did you have a dental visit in the last 12 months?: No Did you have a dental problem in the last 6 months where you did not have access to dental care?: No Was dental information given to patient?: No HPI Annual PE HPI Details Pt is here for a PE. Will order labs. Colon screen is up to date. Due for PSA, will order. Denies dribbling with urination, weak stream, and frequent nocturia. Pt is a diabetic, on an ARB and a statin. Due for A1C, will order. Due for microalbumin, will order. Denies polyuria, polydipsia, and neuropathy. Pt denies any signs and symptoms of hypoglycemia and does know how to correct it. Pt c/o bilat shoulder pain. 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 Findings are consistent with right rotator cuff impingement. XR of the left shoulder showed marked osteoarthritic change of the left glenohumeral joint. Findings are consistent with left rotator cuff impingement and calcific tendinitis. Will refer to ortho. Pt is following up with cardiology and nephrology. [facility] Medical History CAD (coronary artery disease) AAA (abdominal aortic aneurysm) GUTIERREZ (obstructive sleep apnea) Cardiomyopathy HTN (hypertension) Dyslipidemia Surgical History Hx of colonoscopy Hx of appendectomy Family History Father Asthma Bronchitis Mother Lung cancer Social History Household Members Other:: sister Housing: House Are you a primary healthcare educator to a significant other at home: No Do you presently have visiting nurse or other home services: No Alcohol intake: never Patient Tobacco Use Status: Never used Tobacco e-Cigarette/Vaping Use: Never Used Second Hand Smoke Exposure: No service: No Current occupational status: retired Cognitive needs: No Hearing needs: No Vision needs: No Questionnaire PHQ-9 Over the last 2 weeks, how often have you been bothered by any of the following problems? 1. Little interest or pleasure in doing things: nearly every day 2. Feeling down, depressed, or hopeless: nearly every day 3. Trouble falling or staying asleep, or sleeping too much: more than half the days 4. Feeling tired or having little energy: more than half the days 5. Poor appetite or overeating: nearly every day 6. Feeling bad about yourself - or that you are a failure or have let yourself or your family down: not at all 7. Trouble concentrating on things, such as reading the newspaper or watching television: nearly every day 8. Moving or speaking so slowly that other people could have noticed. Or the opposite - being so fidgety or restless that you have been moving around a lot more than usual: nearly every day 9. Thoughts that you would be better off or of hurting yourself in some way: nearly every day Total score: 22 Depression Screening Interpretation: Positive Depression Screening Follow-up: Existing condition Depression Screening Done: Yes 31783 - PHQ-9 Billing: Yes Source: Developed by Drs. Juan Carlos Hale, Drea Mckinney, Krish Menjivar and colleagues, with an educational richelle from [employer]. Thrive Questionnaire Date Thrive assessed: 11/13/23 I am a: Patient What is your living situation today?: I have a steady place to live Within the past 12 months, did the food you bought not last and you didn't have the money to get more?: Never true Within the past 12 months, did you worry whether your food would run out before you got money to buy more?: Never true Do you have trouble paying for medicines?: No Do you have trouble getting transportation to medical appointments?: No Do you have trouble paying your heating and electricity bill?: No Do you have trouble taking care of your child, family member or friend?: No Do you have trouble with day-to-day activities such as bathing, preparing meals, shopping, managing finances, etc.?: No Are you currently unemployed and looking for a job?: No Are you interested in more education?: No THRIVE Score: 0 AUDIT C Alcohol Use Questionnaire (AUDIT-C) 1. How often do you have a drink containing alcohol?: Monthly or less 2. How many drinks containing alcohol do you have on a typical day when you are drinking?: 1 or 2 3. How often do you have six or more drinks on one occasion?: Never Total Score: 1 Score Reviewed/Action Taken: Yes MARCIAL-7 AMB Questionnaire MARCIAL-7 Date MARCIAL - 7 assessed: 11/13/23 Feeling nervous, anxious, or on edge: 0 = Not at all Not being able to stop or control worryin = Not at all Worrying too much about different things: 1 = Several days Trouble relaxin = Not at all Being so restless that it is hard to sit still: 0 = Not at all Becoming easily annoyed or irritable: 0 = Not at all Feeling afraid as if something awful might happen: 0 = Not at all Total MARCIAL-7 score (0-4 normal; 5-9 mild; 10-14 moderate; 15-21 severe): 1 Source: Developed by Flo Lyonet B.W. Hank, Krish Menjivar and colleagues, with an educational richelle from [employer]. MARCIAL-7 Assessment Billing MARCIAL-7 Assessment Tool: MARCIAL-7 Assessment 59937 Review of Systems Const Denies chills and Denies fever(s) Eyes Denies blurry vision ENT Denies vertigo, Denies dizziness and Denies sore throat Card Denies chest pain at rest, Denies chest pain with activity, Denies diaphoresis, Denies dyspnea and Denies dyspnea on exertion Resp Denies cough, Denies dyspnea, Denies dyspnea on exertion and Denies wheezing GI Denies abdominal pain, Denies melena, Denies hematochezia, Denies constipation, Denies diarrhea and Denies loose stools Denies hematuria Musc Denies numbness and Denies tingling Skin/Breast Denies lesions Neuro Denies vertigo, Denies dizziness, Denies numbness and Denies tingling Psych Denies anxiety, Denies depression, Denies homicidal ideation, Denies suicidal ideation and Denies other (substance abuse) Aller/Immun Denies wheezing Physical exam (Primary Care) Vital Signs: Last Vital Signs Pulse 57 11/13/23 09:02 BP 138/70 11/13/23 09:02 Pulse Ox 97 11/13/23 09:02 Oxygen Delivery Method Room Air 11/13/23 09:02 BMI result Body Mass Index 30.8 Tobacco/Smoking Status: Tobacco use Status Tobacco use date assessed 11/13/23 11/13/23 09:11 Patient Tobacco Use Status Never used Tobacco 11/13/23 09:11 e-Cigarette/Vaping Use Never Used 11/13/23 09:11 PHQ-9: PHQ-9 Score PHQ-9: Total score 22 11/13/23 09:37 Depression Screening Interpretation: Positive Depression Screening Follow-up: Existing condition Thrive Assessment: Date of Thrive Assessment Date Thrive assessed 11/13/23 11/13/23 09:23 Const General: cooperative Nutritional Appearance: well nourished Orientation/consciousness: patient oriented x3 HENMT Head: Yes normal to inspection, Yes normocephalic and Yes atraumatic Ears: TM's normal bilaterally Eyes General: appearance normal, both eyes and all related structures Alignment and Position: alignment normal and position normal Neck Neck: Yes normal visual inspection and Yes no lymphadenopathy Thyroid: Thyroid normal Resp Effort & Inspection: normal respiratory effort Auscultation: clear to auscultation bilaterally Cardio Rate: regular rate Rhythm: regular rhythm Heart sounds: S1 normal heart sound present, S2 normal heart sound present and no murmurs GI Palpation (GI): Soft to palpation and nontender Auscultation: normal bowel sounds Other: umbilical hernia noted. Male General Exam: Yes normal external exam Penis: normal penis Scrotum: scrotum normal, testes descended bilaterally and no inguinal hernias Testes: no testicular mass Skin Rashes: no rashes Neuro General: patient oriented x3, moves all extremities, no focal motor deficits and deep tendon reflexes 2+ bilaterally Romberg Test: Negative Extrem Other: bilat feet: + sensation with use of monofilament Psych Appearance: grossly normal Mental Status: mental status grossly normal Speech and movement: Normal speech and movement present Affect: normal affect Attitude: cooperative Thought process: Normal thought process present Thought content: Normal thought content present Insight: Good insight present (Psych) Judgement: Good judgement present (Psych) Assessment and Plan Assessment & Plan (1) Diabetes: Code(s): E11.9 - Type 2 diabetes mellitus without complications Plan: Labs ordered (2) Shoulder pain, bilateral: Code(s): M25.511 - Pain in right shoulder; M25.512 - Pain in left shoulder Plan: Referred to ortho (3) Screening PSA (prostate specific antigen): Code(s): Z12.5 - Encounter for screening for malignant neoplasm of prostate Plan: PSA ordered Plan The patient agreed to the use of a medical service technician for this encounter. Scribed for NIK Davila by Joleen Louise medical service technician, on 11/13/2023 at 09:40 EST. Orders: Orders Lipid Panel Today E11.9 - Type 2 diabetes mellitus without complications Complete Blood Count Auto Diff Today E11.9 - Type 2 diabetes mellitus without complications Comprehensive [place]. Panel Fast Today E11.9 - Type 2 diabetes mellitus without complications TSH reflex Free T4 Today E11.9 - Type 2 diabetes mellitus without complications UA CC w/rflx Micro + Cult Today E11.9 - Type 2 diabetes mellitus without complications Microalbumin, Random (w Creat) Today E11.9 - Type 2 diabetes mellitus without complications Hemoglobin A1c Today E11.9 - Type 2 diabetes mellitus without complications Prostate Specific Antigen Scr Today Z12.5 - Encounter for screening for malignant neoplasm of prostate Referrals Orthopedics Referral M25.511 - Pain in right shoulder, M25.512 - Pain in left shoulder Coding Level of Care Code Est Pt Prev Care >65y(30573) Diagnoses Diabetes E11.9 Shoulder pain, bilateral M25.511; M25.512 Screening PSA (prostate specific antigen) Z12.5 Additional Codes MARCIAL-7 Assessment Billing - MARCIAL-7 Assessment Tool: MARCIAL-7 Assessment 20036 ([id number])
== END 2023-11-13 10:52 | disposition home or self-care (01) ==
PROVIDERS: PCP Nurse Practitioner Family; Visit Provider Nurse Practitioner Family
DX: Z00.00 Encounter for general adult medical examination without abnormal findings (principal); E11.9 Type 2 diabetes mellitus without complications; M25.511 Pain in right shoulder; M25.512 Pain in left shoulder; Z12.5 Encounter for screening for malignant neoplasm of prostate
CPT/HCPCS: 99397

== ENCOUNTER 2023-11-13 09:52 | Outpatient (REF) | payer MEDICARE, SELFPAY ==
[2023-11-13 13:13] LABS: MANUAL DIFF FLAG NO
[2023-11-13 13:54] LABS: Appearance Urine Clear; Color Urine Yellow; Glucose Urine UA Negative (Negative); Leukocyte Esterase Urine Large (3+) (Negative); Nitrite Urine Negative (Negative); PH 5.5 (5.0-9.0); UMIC TRIGGER UACC YES; Urine Blood Negative (Negative); Urine Ketones Negative (Negative); Urine Protein 30 (1+) mg/dL (Neg-Trace)
[2023-11-13 14:00] LABS: Bacteria Urine None Seen (None Seen); Hyaline Casts Urine 0-2 /LPF (0-2); RBC Urine 0-2 /HPF (0-2); Squamous Epithelial Cell Urine 0-2 /HPF (0-2); UACC Culture Trigger YES; WBC Urine 21-50 /HPF (0-5)
[2023-11-13 14:12] LABS: Basophils Absolute Auto 0.1 X10*3/uL (0.0-0.2); Basophils Percent Auto 0.7 % (0-2); Eosinophils Absolute Auto 0.3 X10*3/uL (0.0-0.4); Eosinophils Percent Auto 4.5 % (0-4); Hemoglobin 13.8 g/dl (14.0-18.0); Imm Gran Abs Auto 0.02 X10*3/uL (0.00-0.03); Imm Gran Pct Auto 0.3 % (0.0-0.4); Lymphocytes Absolute Auto 1.2 X10*3/uL (1.2-4.9); Lymphocytes Percent Auto 17.5 % (20-40); Mean Corpuscular HGB Conc 32.9 g/dl (31.0-36.0); Mean Corpuscular Hemoglobin 32.1 pg (27.0-33.0); Mean Corpuscular Volume 97.7 fL (80.0-98.0); Mean Platelet Volume 9.5 fL (9.4-12.4); Monocytes Absolute Auto 0.6 X10*3/uL (0.1-1.2); Monocytes Percent Auto 7.8 % (2-11); Neutrophils Absolute Auto 4.9 x10*3/uL (2.0-8.3); Neutrophils Percent Auto 69.2 % (45-73); Platelet Count 247 X10*3/uL (160-400); Red Cell Distribution Width 12.7 % (11.0-16.0); White Blood Count 7.1 X10*3/uL (4.8-10.8)
[2023-11-13 14:14] LABS: Estimated Average Glucose 148 mg/dL; Hemoglobin A1c % 6.8 % (<6.0)
[2023-11-13 14:34] LABS: Alanine Aminotransferase 14 U/L (0-40); Albumin Level 4.1 g/dL (3.5-5.0); Alkaline Phosphatase 56 U/L (39-117); Anion Gap 13 (12-20); Aspartate Amino Transferase 13 U/L (5-37); Bilirubin Total 0.9 mg/dL (0.0-1.0); Blood Urea Nitrogen 20 mg/dL (9-16); Calcium 9.6 mg/dL (8.4-10.2); Carbon Dioxide 23 mmol/L (22-29); Chloride 107 mmol/L (96-108); Cholesterol 101 mg/dL (<200); Estimated Glomerular Filt Rate > 60; Glucose Fasting 141 mg/dL (60-99); HDL Cholesterol 35 mg/dL (>40); LDL Cholesterol Calculated 39 mg/dL (<100); Potassium 4.7 mmol/L (3.3-5.1); Sodium 138 mmol/L (135-145); Total Protein 6.7 g/dL (6.5-8.0); Triglycerides 138 mg/dL (<150)
[2023-11-13 14:35] LABS: Prostate Specific Antigen Scr 1.38 ng/mL (<0.05-4.0)
[2023-11-13 14:40] LABS: Creatinine Urine 72.01 mg/dL; Microalbum/Creatinine Ratio Ur 251.3 ug/mg cr (<30)
[2023-11-13 14:42] LABS: TSH reflex Free T4 0.75 uIU/mL (0.32-4.0)
== END 2023-11-13 09:53 | disposition home or self-care (01) ==
LOC: HO.HMGCLDS 09:52
PROVIDERS: PCP Nurse Practitioner Family; Visit Provider Nurse Practitioner Family
DX: E11.9 Type 2 diabetes mellitus without complications (principal); Z12.5 Encounter for screening for malignant neoplasm of prostate
CPT/HCPCS: 36415; 80053; 80061; 81001; 82043; 82570; 83036; 84153; 84443; 85025; 87086

== ENCOUNTER 2023-11-17 10:20 | Outpatient (AMB) | payer MEDICARE, SELFPAY ==
[2023-11-17 10:43] VITALS: BMI 30.8
--- NOTE | 2023-11-17 10:43 | MHC.OFFVIS ---
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 Patient reports his pain is a 7 on the 1-10 pain scale and has been going on for about 10 years, ROM is painful and is hard to reach above the head. He states that both side are equal pain crum. He continues to play table tennis. He has not had a cortisone injection. He wishes to hold off on surgery if at all possible. Allergies cat dander Allergy (Unknown, Verified 11/17/23 10:53) congestion Medication List - Last Reconciled 11/17/23 by Silverio Newby MD amlodipine 10 mg PO DAILY aspirin 81 mg PO DAILY carvedilol 6.25 mg PO BID cholecalciferol (vitamin D3) 25 mcg PO DAILY flu vac 2020 65up-vbfUH40J(PF) 60 mcg (15 mcg x 4)/0.5 mL mL IM hydrochlorothiazide 25 mg PO DAILY metformin 1,000 mg (2 x 500 mg) PO BID omega 6-vpy-dhg-fish oil 1,200 (144-216) mg (Fish Oil) 1 cap PO BID rosuvastatin 10 mg PO BEDTIME sacubitril-valsartan 49-51 mg (Entresto) 1 tab PO BID turmeric mg PO zinc acetate PO PFSH Medical History CAD (coronary artery disease) AAA (abdominal aortic aneurysm) GUTIERREZ (obstructive sleep apnea) Cardiomyopathy HTN (hypertension) Dyslipidemia Surgical History Hx of colonoscopy Hx of appendectomy Family History Father Asthma Bronchitis Mother Lung cancer Social History Household Members Other:: sister Housing: House Are you a primary senior care specialist to a significant other at home: No Do you presently have visiting nurse or other home services: No Alcohol intake: never Patient Tobacco Use Status: Never used Tobacco e-Cigarette/Vaping Use: Never Used Second Hand Smoke Exposure: No service: No Current occupational status: retired Cognitive needs: No Hearing needs: No Vision needs: No Physical Exam Vital Signs: BMI result Body Mass Index 30.8 Const Other: Well-nourished well-developed very friendly male awake alert and oriented x3 in no acute distress Extrem Other: Bilateral upper extremity examination shows good capillary refill, no skin lesions noted, normal sensation light touch Bilateral shoulder examination shows forward flexion to 100 degrees, external rotation to 10 degrees, internal rotation to his back pocket, crepitus with range of motion, pain with range of motion, no instability Results Reviewed Results Reviewed: X-rays of the patient's bilateral shoulder show severe glenohumeral joint degenerative changes, no acute bony abnormalities Assessment & Plan Assessment & Plan (1) Arthritis of left shoulder region: Code(s): M19.012 - Primary osteoarthritis, left shoulder (2) Arthritis of right shoulder region: Code(s): M19.011 - Primary osteoarthritis, right shoulder Plan Mr. Steele presents with bilateral shoulder pains due to glenohumeral joint arthritis. I had a lengthy discussion with the patient regarding the treatment options. The patient wishes to hold off on surgery for as long as possible. I agree with this plan. The risks and benefits of bilateral shoulder cortisone injections were discussed at length with the patient. The patient wished to proceed with the injections. He tolerated the injections well. He will continue with his home stretching program to prevent worsening of his stiffness. He will contact me prior to his follow-up appointment in 3 months should any questions or concerns arise. Feel free to call me at any time should questions regarding his orthopedic management arise. I spent 22 minutes in reviewing the patient's records and imaging studies, seeing the patient and documenting in the medical record. Orders: Orders AMB Joint Injection/Aspiration Today M19.012 - Primary osteoarthritis, left shoulder AMB Joint Injection/Aspiration Today M19.011 - Primary osteoarthritis, right shoulder Coding Level of Care Code New Pt Level 2 (39627) Diagnoses Arthritis of left shoulder region M19.012 Arthritis of right shoulder region M19.011
== END 2023-11-17 11:47 | disposition home or self-care (01) ==
PROVIDERS: PCP Nurse Practitioner Family; Visit Provider Orthopaedic Surgery
DX: M19.012 Primary osteoarthritis, left shoulder (principal); M19.011 Primary osteoarthritis, right shoulder
CPT/HCPCS: 99202

== ENCOUNTER → 2023-11-17 10:20 | Outpatient (BNVA) | payer MEDICARE, SELFPAY | PROVIDERS: PCP Nurse Practitioner Family; Visit Provider Orthopaedic Surgery | DX: M19.012 Primary osteoarthritis, left shoulder (principal); M19.011 Primary osteoarthritis, right shoulder | CPT/HCPCS: 99202; J1020 ==

== ENCOUNTER 2023-12-03 15:03 | Outpatient (AMB) | payer MEDICARE, SELFPAY ==
--- NOTE | 2023-12-03 15:15 | A.OFFVIS_ITS ---
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 Feels tire often during the day, wakes up x3 to x4 every night Allergies cat dander Allergy (Unknown, Verified 12/03/23 15:22) congestion HPI HPI Comments History of Present Illness Details 73 y/o male patient presents for new in- person visit to manage sleep apnea. Pt reports he was diagnosed with GUTIERREZ, maybe 30 years ago. He tried CPAP but CPAP made his sinus very dry, he stopped using it. He had colonoscopy recently and found that his has irregular heart rhythm and recommenced to undergo sleep study to assess sleep apna. Pt reports non refreshing sleep with excessive daytime sleepiness. Sleep questionnaire: Have you ever been diagnosed with a sleep disorder? Yes,GUTIERREZ. Have you ever had a sleep study in the past? Yes. Have you ever been treated for a sleep disorder? Yes, tried CPAP. Do you take medications for a sleep disorder? No. Do you snore? Yes. Do you wake up gasping at night? No. Do you have episodes of apneas? Yes. If yes, are they witnessed? Yes. Do you have episodes of nocturnal chest pain or dyspnea? No. Do you have difficulty initiating sleep? No. Do you have difficulty maintaining sleep? Yes, wakes up 3-4 times at night. Do you wake up tired? Yes. Do you have headaches upon awakening? No. Do you wake up with dry mouth or throat? No. Do you have GERD? No. Do you have nocturia? Yes. Do you have nocturnal leg cramps? No. Do you have symptoms of restless legs? No. Do you act out your dreams? No. Sleep hygiene questionnaire: What is your usual sleep routine? Usual bedtime is at 11 pm; Usual wake up time is at 9 am. Do you take naps? Yes. Is your sleep environment cool, dark, and quiet? Yes. Do you exercise? Table tennis and walking. Do you take caffeine or other stimulants? Excedrin with caffeine in it for arthritis. Do you use electronics in bed? No. What is your work schedule? N/A. Hypersomnolence questionnaire: Do you have daytime tiredness or fatigue? Yes. o you easily fall asleep when inactive? Yes. Have you ever had episodes of sudden weakness? No. Have you ever had episodes of sudden weakness associated with strong emotions? No. PFSH Medical History CAD (coronary artery disease) AAA (abdominal aortic aneurysm) GUTIERREZ (obstructive sleep apnea) Cardiomyopathy HTN (hypertension) Dyslipidemia Surgical History Hx of colonoscopy Hx of appendectomy Family History Father Asthma Bronchitis Mother Lung cancer Social History Household Members Other:: sister Housing: House Are you a primary out of school hours care worker to a significant other at home: No Do you presently have visiting nurse or other home services: No Alcohol intake: never Patient Tobacco Use Status: Never used Tobacco e-Cigarette/Vaping Use: Never Used Second Hand Smoke Exposure: No service: No Current occupational status: retired Cognitive needs: No Hearing needs: No Vision needs: No Review of Systems Const All systems reviewed & are unremarkable except as noted in HPI and below Physical Exam Vital Signs: Last Vital Signs Pulse 61 12/03/23 15:23 BP 124/70 12/03/23 15:23 Pulse Ox 96 12/03/23 15:23 Oxygen Delivery Method Room Air 12/03/23 15:23 BMI result Body Mass Index 30.0 Const General: cooperative Nutritional Appearance: obese Orientation/consciousness: patient oriented x3 Limitations: no limitations Neck Neck: Yes full ROM and Yes supple Resp Effort & Inspection: normal respiratory effort and able to speak in complete sentences Neuro General: patient oriented x3 and moves all extremities Cranial nerves: Yes CN's II-XII intact bilaterally Cognition (Neuro): normal cognition Motor exam (neuro): 5/5 motor strength present throughout Psych Appearance: grossly normal Mental Status: mental status grossly normal Affect: normal affect Attitude: cooperative Assessment & Plan Assessment & Plan (1) Sleep apnea: Code(s): G47.30 - Sleep apnea, unspecified (2) Hypersomnia: Code(s): G47.10 - Hypersomnia, unspecified Plan Pt is advised to undergo in lab sleep study to assess for sleep apnea. Will f/u with pt after study to discuss results and appropriate treatment options. Pt to call with any worsening concerns or questions. Orders: Orders RT PSG in-lab sleep study 12/03/23 G47.30 - Sleep apnea, unspecified, I25.10 - Atherosclerotic heart disease of [place] coronary artery without angina pectoris, I42.9 - Cardiomyopathy, unspecified, I71.4 - Abdominal aortic aneurysm, without rupture Coding Level of Care Code New Pt Level 3 (43154) Diagnoses Sleep apnea G47.30 Hypersomnia G47.10
[2023-12-03 15:23] VITALS: BP 124/70; PULSE 61; O2SAT 96
== END 2023-12-03 15:47 | disposition home or self-care (01) ==
PROVIDERS: PCP Nurse Practitioner Family; Visit Provider Nurse Practitioner Family
DX: G47.30 Sleep apnea, unspecified (principal); G47.10 Hypersomnia, unspecified
CPT/HCPCS: 99203

== ENCOUNTER → 2023-12-03 15:03 | Outpatient (BNVA) | payer MEDICARE, SELFPAY | PROVIDERS: PCP Nurse Practitioner Family; Visit Provider Nurse Practitioner Family | DX: G47.30 Sleep apnea, unspecified (principal); G47.10 Hypersomnia, unspecified | CPT/HCPCS: 99202 ==

== ENCOUNTER → 2023-12-24 19:30 | Outpatient (REF) | payer MEDICARE, SELFPAY | LOC: HO.SL 19:30 | PROVIDERS: PCP Nurse Practitioner Family; Visit Provider Nurse Practitioner Family | DX: G47.30 Sleep apnea, unspecified (principal); I25.10 Atherosclerotic heart disease of native coronary artery without angina pectoris; I42.9 Cardiomyopathy, unspecified; I71.40 Abdominal aortic aneurysm, without rupture, unspecified | CPT/HCPCS: 95810 ==

== ENCOUNTER → 2023-12-24 23:45 | Outpatient (BNV) | payer MEDICARE, SELFPAY | PROVIDERS: PCP Nurse Practitioner Family; Visit Provider Psychiatry & Neurology Neurology | DX: G47.33 Obstructive sleep apnea (adult) (pediatric) (principal) | CPT/HCPCS: 95810 ==

== ENCOUNTER 2024-01-19 10:47 | Outpatient (AMB) | payer MEDICARE, SELFPAY ==
--- NOTE | 2024-01-19 11:06 | MHC.OFFVIS ---
Intake Intake Visit Reasons: Retention of urine, Intake Note: NEW Patient presents today to established treatment for: Retention Of Urine Meds- None Allergies to Antibiotic- No Known Allergies Blood Thinner- Aspirin Post Void Residual: 0ml Patient Symptoms: Patient stated his mayor issue is to wake up every two hours at night to urinate. Structural Design Engineer Required: No Accompanied by: Self / Same As Patient Allergies cat dander Allergy (Unknown, Verified 01/19/24 11:25) congestion Medication List - Last Reconciled 01/19/24 by Roel Sweeney MD amlodipine 10 mg PO DAILY aspirin 81 mg PO DAILY carvedilol 6.25 mg PO BID cholecalciferol (vitamin D3) 25 mcg PO DAILY flu vac 2020 65up-ulcYA15K(PF) 60 mcg (15 mcg x 4)/0.5 mL mL IM metformin 1,000 mg (2 x 500 mg) PO BID omega 8-diz-wic-fish oil 1,200 (144-216) mg (Fish Oil) 1 cap PO BID rosuvastatin 10 mg PO BEDTIME sacubitril-valsartan 49-51 mg (Entresto) 1 tab PO BID tamsulosin (Flomax) 0.4 mg PO BEDTIME turmeric mg PO zinc acetate PO HPI HPI Comments History of Present Illness Details Juan Carlos is a 73-year-old male with history of coronary artery disease, diabetes, hypertension. The patient complains of increased urinary frequency at nighttime and a weak stream. He states he is being evaluated for sleep apnea. He denies irritative voiding symptoms. In review of the chart he had PSA 11/13/2023 that was normal 1.38. Urinalysis trace blood, protein present. Prostate Exam: Smooth mild to moderately enlarged no suspicious nodules palpated I have discussed trial of alpha-kathleen Flomax 0.4 mg at bedtime, will evaluate with ultrasound retroperitoneum. Follow-up in 3 months [facility] Medical History CAD (coronary artery disease) AAA (abdominal aortic aneurysm) GUTIERREZ (obstructive sleep apnea) Cardiomyopathy HTN (hypertension) Dyslipidemia Surgical History Hx of colonoscopy Hx of appendectomy Family History Father Asthma Bronchitis Mother Lung cancer Social History Household Members Other:: sister Housing: House Are you a primary child care center administrator to a significant other at home: No Do you presently have visiting nurse or other home services: No Alcohol intake: never Patient Tobacco Use Status: Never used Tobacco e-Cigarette/Vaping Use: Never Used Second Hand Smoke Exposure: No service: No Current occupational status: retired Cognitive needs: No Hearing needs: No Vision needs: No Review of Systems Const All systems reviewed & are unremarkable except as noted in HPI and below Reports no additional complaints Eyes Reports no additional complaints ENT Reports no additional complaints Card Reports no additional complaints Resp Reports no additional complaints GI Reports no additional complaints Reports as per HPI Musc Reports no additional complaints Skin/Breast Reports system reviewed and no additional complaints, except as documented Neuro Reports no additional complaints Psych Reports no additional complaints Endo Reports no additional complaints John/Lymph Reports no additional complaints Aller/Immun Reports no additional complaints Physical Exam Const General: healthy appearing, no acute distress and well developed Orientation/consciousness: patient oriented x3 HEENT Head: Yes normocephalic and Yes atraumatic Eyes Conjunctivae: conjunctivae normal Neck Neck: Yes normal visual inspection Chest Chest palpation & inspection: normal inspection of the chest Resp Effort & Inspection: normal respiratory effort Cardio Rate: regular rate GI Inspection: Yes normal to inspection Palpation (GI): Soft to palpation Other: Prostate Exam: Smooth mild to moderately enlarged no suspicious nodules palpated Neuro General: patient oriented x3 Extrem General: No pedal edema Psych Appearance: grossly normal Affect: normal affect Office Procedures Post Void Residual Post Residual Void Post Void Residual (PVR): 0 [id number] Void Residual by ultrasound Results AMB Urinalysis, Automated UA Leukoctes 500 Yarely/uL Last Edit by Chantelle Lee CMA on 01/19/24 11:27 UA Nitrite Negative Last Edit by Chantelle Lee CMA on 01/19/24 11:27 UA Urobilinogen 0.2 mg/dL Last Edit by Chantelle Lee CMA on 01/19/24 11:27 UA Protein 30 mg/dL Last Edit by Chantelle Lee CMA on 01/19/24 11:27 UA pH 5.5 Last Edit by Chantelle Lee [facility] on 01/19/24 11:27 UA Blood 10 Ronald/uL Last Edit by Chantelle Lee [facility] on 01/19/24 11:27 UA Specific [place] 1.025 Last Edit by Chantelle Lee [facility] on 01/19/24 11:27 UA Ketone Negative Last Edit by Chantelle Lee [facility] on 01/19/24 11:27 UA Bilirubin 0 mg/dL Last Edit by Chantelle Lee [facility] on 01/19/24 11:27 UA Glucose 0 mg/dL Last Edit by Chantelle Lee [facility] on 01/19/24 11:27 Results Reviewed Results Reviewed: Laboratory Last Values Urine pH (Auto) 5.5 01/19/24 11:26 Specific [place] (Auto) 1.025 01/19/24 11:26 Urine Protein (Auto) 30 mg/dL 01/19/24 11:26 Glucose (UA)(Auto) 0 mg/dL 01/19/24 11:26 Urine Ketones (Auto) Negative 01/19/24 11:26 Urine Blood (Auto) 10 Ronald/uL 01/19/24 11:26 Urine Nitrite (Auto) Negative 01/19/24 11:26 Urine Bilirubin (Auto) 0 mg/dL 01/19/24 11:26 Urine Urobilinogen (Auto) 0.2 mg/dL 01/19/24 11:26 Leukocyte Esterase (Auto) 500 Yarely/uL 01/19/24 11:26 Assessment & Plan Assessment & Plan (1) Weak urinary stream: Code(s): R39.12 - Poor urinary stream (2) Urinary frequency: Code(s): R35.0 - Frequency of micturition (3) BPH loc w urin obs/LUTS: Code(s): N40.1 - Benign prostatic hyperplasia with lower urinary tract symptoms Plan I have discussed trial of alpha-kathleen Flomax 0.4 mg at bedtime, will evaluate with ultrasound retroperitoneum. Follow-up in 3 months Orders: Orders US retroperitoneal comp Today R35.0 - Frequency of micturition, R39.12 - Poor urinary stream AMB Post Void Residual by ultrasound Today R33.9 - Retention of urine, unspecified AMB Urinalysis Automated Today R33.9 - Retention of urine, unspecified Medications: New tamsulosin (Flomax) 0.4 mg PO BEDTIME 90 caps 3RF Patient Instructions: The patient had an opportunity to ask questions regarding treatment plan. All questions were answered. Laboratory studies and physical exam results were discussed and reviewed in detail. No major barriers to understanding were identified. The patient expressed understanding and agreement with the above treatment plan. The patient is aware they should contact our office by phone for worsening of their current condition or the appearance of new symptoms. Compliance is encouraged with any medications and followup testing that is ordered. It is a privilege to be allowed the opportunity to participate in the urologic care of your patient. If you have any questions or concerns regarding treatment for the above conditions please do not hesitate to contact me. The office telephone contact is [phone]. This note is constructed in part using voice recognition software. While every effort has been made to ensure accuracy box sealing machine feeder errors may have been included. Yours sincerely, Roel Sweeney MD Coding Level of Care Code New Pt Level 4 (99099) Diagnoses Weak urinary stream R39.12 Urinary frequency R35.0 BPH loc w urin obs/LUTS N40.1 CPT Codes Post Residual Void - PVR CPT Code: 96193-Xqxr Void Residual by ultrasound ([id number])
== END 2024-01-19 11:59 | disposition home or self-care (01) ==
PROVIDERS: PCP Nurse Practitioner Family; Visit Provider Urology
DX: N40.1 Benign prostatic hyperplasia with lower urinary tract symptoms (principal); R39.12 Poor urinary stream; R35.0 Frequency of micturition; R33.9 Retention of urine, unspecified
CPT/HCPCS: 99204

== ENCOUNTER → 2024-01-19 10:47 | Outpatient (BNVA) | payer MEDICARE, SELFPAY | PROVIDERS: PCP Nurse Practitioner Family; Visit Provider Urology | DX: N40.1 Benign prostatic hyperplasia with lower urinary tract symptoms (principal); R33.8 Other retention of urine; R35.0 Frequency of micturition; R39.12 Poor urinary stream | CPT/HCPCS: 51798; 81003; 99202 ==

== ENCOUNTER → 2024-02-06 19:30 | Outpatient (REF) | payer MEDICARE, SELFPAY | LOC: HO.SL 19:30 | PROVIDERS: PCP Nurse Practitioner Family; Visit Provider Nurse Practitioner Family | DX: G47.30 Sleep apnea, unspecified (principal) | CPT/HCPCS: 95811 ==

== ENCOUNTER → 2024-02-06 21:47 | Outpatient (BNV) | payer MEDICARE, SELFPAY | PROVIDERS: PCP Nurse Practitioner Family; Visit Provider Psychiatry & Neurology Neurology | DX: G47.33 Obstructive sleep apnea (adult) (pediatric) (principal) | CPT/HCPCS: 95811 ==

== ENCOUNTER 2024-02-18 10:58 | Outpatient (AMB) | payer MEDICARE, SELFPAY ==
--- NOTE | 2024-02-18 11:06 | A.OFFVIS_ITS ---
Vital Signs 02/18/24 11:06 Height 5 ft 10 in Weight 209 lb BMI 30.0 Intake Visit Reasons: OV-B/L shoulder pain-follow up Intake Note: Juan Carlos is a 73 year old Left hand dominate who presents with bilateral shoulder pain. Patient reports he had bilateral shoulder injections on 11/17/2023 and they gave him good relief. He states he would like to repeat the bilateral shoul vicenta injections today. He has done physical therapy exercises which aggravated his pain. He has also tried Tylenol and anti-inflammatory medicines which gave him minimal relief. Continues to play table tennis 3 days per week. Allergies cat dander Allergy (Unknown, Verified 02/18/24 11:26) congestion [facility] Medical History CAD (coronary artery disease) AAA (abdominal aortic aneurysm) GUTIERREZ (obstructive sleep apnea) Cardiomyopathy HTN (hypertension) Dyslipidemia Surgical History Hx of colonoscopy Hx of appendectomy Family History Father Asthma Bronchitis Mother Lung cancer Social History Household Members Other:: sister Housing: House Are you a primary home care provider to a significant other at home: No Do you presently have visiting nurse or other home services: No Alcohol intake: never Patient Tobacco Use Status: Never used Tobacco e-Cigarette/Vaping Use: Never Used Second Hand Smoke Exposure: No service: No Current occupational status: retired Cognitive needs: No Hearing needs: No Vision needs: No Physical Exam Vital Signs: BMI result Body Mass Index 30.0 Const Other: Well-nourished well-developed very friendly male awake alert and oriented x3 in no acute distress Extrem Other: Bilateral upper extremity examination shows good capillary refill, no skin lesions noted, normal sensation light touch Bilateral shoulder examination shows mild crepitus with range of motion, pain with range of motion, 5/5 strength with supraspinatus testing, no instability Office Procedures Joint Injection/Drain Joint Injection/Drain Primary Site: right shoulder Prep: site was prepped using aseptic technique Injected: 40 mg of, DepoMedrol and 1% plain lidocaine Procedure: The patient tolerated the procedure well Coding 79807 - Large joint Procedure code (CPT) selection complete Joint Injection/Drain Joint Injection/Drain Primary Site: left shoulder Prep: site was prepped using aseptic technique Injected: 40 mg of, DepoMedrol and 1% plain lidocaine Procedure: The patient tolerated the procedure well Coding 02911 - Large joint Procedure code (CPT) selection complete Assessment & Plan Assessment & Plan (1) Arthritis of left shoulder region: Code(s): M19.012 - Primary osteoarthritis, left shoulder Category: Medical (2) Arthritis of right shoulder region: Code(s): M19.011 - Primary osteoarthritis, right shoulder Category: Medical Plan Mr. Steele presents with bilateral shoulder pains and stiffness due to glenohumeral joint arthritis and adhesive capsulitis. I had a lengthy discussion with the patient regarding the treatment options. He wishes hold off on surgery for as long as possible. I agree with this plan. The risks and benefits of bilateral shoulder cortisone injections were discussed at length with the patient. The patient wished to proceed with the injections. He tolerated the injections well. He will continue with his home exercise program. He will follow up with me on an as-needed basis should his symptoms not plateau at an unacceptable level over the next few months. Feel free to call me at any time should questions regarding his orthopedic management arise. I spent 21 minutes in reviewing the patient's records and imaging studies, seeing the patient and documenting in the medical record. Orders: Orders AMB Joint Injection/Aspiration Today M19.012 - Primary osteoarthritis, left s [place] AMB Joint Injection/Aspiration Today M19.011 - Primary osteoarthritis, right shoulder Coding Level of Care Code Est Pt Level 3 (25581) Diagnoses Arthritis of left shoulder region M19.012 Arthritis of right shoulder region M19.011 CPT Codes Coding - 24509 Large joint: 63277 - Large joint ([id number]) Coding - 90452 Large joint: 91989 - Large joint ([id number])
== END 2024-02-18 11:48 | disposition home or self-care (01) ==
PROVIDERS: PCP Nurse Practitioner Family; Visit Provider Orthopaedic Surgery
DX: M19.012 Primary osteoarthritis, left shoulder (principal); M19.011 Primary osteoarthritis, right shoulder
CPT/HCPCS: 20610; 99213

== ENCOUNTER → 2024-02-18 10:58 | Outpatient (BNVA) | payer MEDICARE, SELFPAY | PROVIDERS: PCP Nurse Practitioner Family; Visit Provider Orthopaedic Surgery | DX: M19.012 Primary osteoarthritis, left shoulder (principal); M19.011 Primary osteoarthritis, right shoulder | CPT/HCPCS: 20610; 99212; J1010 ==

== ENCOUNTER 2024-03-29 09:43 | Outpatient (REF) | payer MEDICARE, SELFPAY ==
--- NOTE | ~2024-03-29 | US_ITS ---
EXAMINATION: US RETROPERITONEAL COMPLETE (RENAL) CLINICAL INFORMATION: Frequency of micturition. COMPARISON: Renal ultrasound 04/19/2008. TECHNIQUE: Real-time imaging of the kidneys and bladder. FINDINGS: RIGHT KIDNEY: 9.6 x 5.6 x 5.3 cm (SAG x AP x TRV). The kidney is normal in size, contour, and echogenicity. Renal cortical thickness is normal. No renal calculi or hydronephrosis. 1.3 cm simple cyst in the mid kidney. No imaging follow-up is recommended. LEFT KIDNEY: 13.0 x 5.4 x 5.0 cm (SAG x AP x TRV). The kidney is normal in size, contour, and echogenicity. Renal cortical thickness is normal. No renal calculi or hydronephrosis. There are multiple simple cysts, largest measuring 1.2 cm the mid kidney. No imaging follow-up is recommended. BLADDER: Well distended and normal. Bilateral ureteral jets are demonstrated. Prevoid bladder volume is 211 mL. Postvoid bladder volume is 82 mL. Enlarged prostate, volume 75 mL. US/US retroperitoneal comp IMPRESSION: Enlarged prostate. No hydronephrosis. Post void residual of 82 mL.
== END 2024-03-29 09:44 | disposition home or self-care (01) ==
LOC: HO.US 09:43
PROVIDERS: PCP Nurse Practitioner Family; Visit Provider Urology
DX: R35.0 Frequency of micturition (principal); R39.12 Poor urinary stream
CPT/HCPCS: 76770

== ENCOUNTER 2024-03-31 09:10 | Outpatient (AMB) | payer MEDICARE, SELFPAY ==
--- NOTE | 2024-03-31 09:23 | MHC.OFFVIS ---
Vital Signs 03/31/24 09:24 Height 5 ft 10 in Weight 207 lb BMI 29.7 Intake Visit Reasons: 4 mo f/u-Conf Intake Note: Patient presents for 4 month follow up for sleep study results Allergies cat dander Allergy (Unknown, Verified 03/31/24 09:33) congestion HPI Comments Details: 73-yr-old male presents for follow-up visit of sleep apnea. Pt denies any significant interval medical history changes. In-lab PSG study, 01/12/24, showed severe GUTIERREZ w/ AHI 41/hr and O2 jayla 76%. F/u in-lab PAP titration study, 02/17/24, showed best treatment response to CPAP 9 cmH2O. Since, pt has started on CPAP 9 cmH2O. We do not have current PAP complaine report- pt states 1st night he had residual AHI 4/hr, but since it is 14/hr. He is overall tolerating the CPAP well. Feels he could tolerate a bit higher pressure setting if needed. Pt does sleep on his side. Sometimes the mask leaks. The top of the mask does touch on a bump on the left upper lateral nose- it was causing some redness No dry mouth, no headaches He is feeling a little bit more energy, but was hoping to see an even more profound effect. He is now able to dream. Pt reports he is not waking up as often as night. [facility] Medical History (Reviewed 02/18/24 @ 11:26 by Karissa Morris [facility]) CAD (coronary artery disease) AAA (abdominal aortic aneurysm) GUTIERREZ (obstructive sleep apnea) Cardiomyopathy HTN (hypertension) Dyslipidemia Surgical History Hx of colonoscopy Hx of appendectomy Family History Father Asthma Bronchitis Mother Lung cancer Social History Household Members Other:: sister Housing: House Are you a primary laboratory animal care veterinarian to a significant other at home: No Do you presently have visiting nurse or other home services: No Alcohol intake: never Patient Tobacco Use Status: Never used Tobacco e-Cigarette/Vaping Use: Never Used Second Hand Smoke Exposure: No service: No Current occupational status: retired Cognitive needs: No Hearing needs: No Vision needs: No Review of Systems Const All systems reviewed & are unremarkable except as noted in HPI and below Physical Exam Vital Signs: BMI result Body Mass Index 29.7 Const General: no acute distress Orientation/consciousness: patient oriented x3 HEENT Other: Mallampati stage Resp Effort & Inspection: normal respiratory effort and able to speak in complete sentences Auscultation: clear to auscultation bilaterally Cardio Rate: regular rate Rhythm: regular rhythm Neuro General: patient oriented x3 Psych Mental Status: mental status grossly normal Speech and movement: Clear speech present Attitude: cooperative Results Reviewed Results Reviewed: PAP compliance report- see HPI Assessment & Plan Assessment & Plan (1) Sleep apnea: Comment: Severe degree of sleep apnea. The AHI was 41/hr and oxygen jayla was 76%. Code(s): G47.30 - Sleep apnea, unspecified Category: Medical (2) Hypersomnia: Code(s): G47.10 - Hypersomnia, unspecified Category: Medical Plan For now, continue CPAP 9 cmH2O nightly > 4 hours, as pt is having good clinical effect from use and reduction in AHI. We have requested PAP compliance report and to be connected to pt's [employer] account. Will consider adjusting PAP tx settings, as goal is AHI < 5/hr Consider changing to F 30/ F 40 style mask- if nose irritation persists. Clean CPAP machine and supplies routinely. Change CPAP supplies routinely. Pt to contact us or respiratory company with any questions or concerns. Coding Level of Care Code Est Pt Level 3 (27024) Diagnoses Sleep apnea G47.30 Hypersomnia G47.10
[2024-03-31 09:24] VITALS: BMI 29.7
== END 2024-03-31 10:41 | disposition home or self-care (01) ==
PROVIDERS: PCP Nurse Practitioner Family; Visit Provider Nurse Practitioner Family
DX: G47.30 Sleep apnea, unspecified (principal); G47.10 Hypersomnia, unspecified
CPT/HCPCS: 99213

== ENCOUNTER → 2024-03-31 09:10 | Outpatient (BNVA) | payer MEDICARE, SELFPAY | PROVIDERS: PCP Nurse Practitioner Family; Visit Provider Nurse Practitioner Family | DX: G47.30 Sleep apnea, unspecified (principal); G47.10 Hypersomnia, unspecified; Z99.89 Dependence on other enabling machines and devices | CPT/HCPCS: 99212 ==

== ENCOUNTER 2024-04-21 12:51 | Outpatient (AMB) | payer MEDICARE, SELFPAY ==
--- NOTE | 2024-04-21 12:54 | A.OFFVIS_ITS ---
Intake Visit Reasons: 3m/US Intake Note: Patient is Present for PVR/US Urology Med: Tamsulosin Antibiotic Allergy: None Blood Thinner: Aspirin Last PVR: 0 Todays PVR: 19 Production Welder Required: No Allergies cat dander Allergy (Unknown, Verified 04/21/24 12:54) congestion HPI Comments Details: 04/21/24--Juan Carlos is here for three-month follow-up. He was initially evaluated on 01/19/2024 for lower urinary tract symptoms, urinary frequency and nocturia as well as a weak stream. He was started on tamsulosin and sent for a renal ultrasound. He states he feels the medication is working well. He states he also was evaluated for sleep apnea and the treatment for the sleep apnea. I have discussed the renal ultrasound 03/29/2024, results, kidneys are within normal limits, bilateral simple cysts, Enlarged prostate, volume 75 mL.. The patient wants to know if he can stop the tamsulosin if he is doing better. I want him to continue the tamsulosin for 3 months. At that point he may stopped the medication, but he is advised that his symptoms may return once off of the tamsulosin. He is to call our office if he does stopped the medication. Otherwise follow-up in 9 months PSA at that time. Review of chart: 01/19/24--Juan Carlos is a 73-year-old male with history of coronary artery disease, diabetes, hypertension. The patient complains of increased urinary frequency at nighttime and a weak stream. He states he is being evaluated for sleep apnea. He denies irritative voiding symptoms. In review of the chart he had PSA 11/13/2023 that was normal 1.38. Urinalysis trace blood, protein present. Prostate Exam: Smooth mild to moderately enlarged no suspicious nodules palpated I have discussed trial of alpha-kathleen Flomax 0.4 mg at bedtime, will evaluate with ultrasound retroperitoneum. Follow-up in 3 months [facility] Medical History CAD (coronary artery disease) AAA (abdominal aortic aneurysm) GUTIERREZ (obstructive sleep apnea) Cardiomyopathy HTN (hypertension) Dyslipidemia Surgical History Hx of colonoscopy Hx of appendectomy Family History Father Asthma Bronchitis Mother Lung cancer Social History Household Members Other:: sister Housing: House Are you a primary respiratory care instructor to a significant other at home: No Do you presently have visiting nurse or other home services: No Alcohol intake: never Patient Tobacco Use Status: Never used Tobacco e-Cigarette/Vaping Use: Never Used Second Hand Smoke Exposure: No service: No Current occupational status: retired Cognitive needs: No Hearing needs: No Vision needs: No Review of Systems Const All systems reviewed & are unremarkable except as noted in HPI and below Reports no additional complaints Eyes Reports no additional complaints ENT Reports no additional complaints Card Reports no additional complaints Resp Reports no additional complaints GI Reports no additional complaints Reports as per HPI Musc Reports no additional complaints Skin/Breast Reports system reviewed and no additional complaints, except as documented Neuro Reports no additional complaints Psych Reports no additional complaints Endo Reports no additional complaints John/Lymph Reports no additional complaints Aller/Immun Reports no additional complaints Office Procedures Post Void Residual Post Residual Void Post Void Residual (PVR): 19 95569-Wtpt Void Residual by ultrasound Results AMB Urinalysis, Automated UA Leukoctes 125 Yarely/uL Last Edit by ESTEFANIA Simons on 04/21/24 13:14 UA Nitrite Negative Last Edit by Maral Lacey [facility] on 04/21/24 13:14 UA Urobilinogen 0.2 mg/dL Last Edit by ESTEFANIA Simons on 04/21/24 13:1 4 UA Protein 0 mg/dL Last Edit by Maral Lacey [facility] on 04/21/24 13:14 UA pH 5.0 Last Edit by Maral Lacey [facility] on 04/21/24 13:14 UA Blood 25 Ronald/uL Last Edit by Maral Lacey Naseem on 04/21/24 13:14 UA Specific Ermine 1.010 Last Edit by Maral Lacey A on 04/21/24 13: 14 UA Ketone Negative Last Edit by ESTEFANIA Simons on 04/21/24 13:14 UA Bilirubin 0 mg/dL Last Edit by MaralESTEFANIA Rai on 04/21/24 13:14 UA Glucose 1000 mg/dL Last Edit by ESTEFANIA Simons on 04/21/24 13:14 Results Reviewed Results Reviewed: Date of Service: 03/29/24 EXAMINATION: US RETROPERITONEAL COMPLETE (RENAL) CLINICAL INFORMATION: Frequency of micturition. COMPARISON: Renal ultrasound 04/19/2008. TECHNIQUE: Real-time imaging of the kidneys and bladder. FINDINGS: RIGHT KIDNEY: 9.6 x 5.6 x 5.3 cm (SAG x AP x TRV). The kidney is normal in size, contour, and echogenicity. Renal cortical thickness is normal. No renal calculi or hydronephrosis. 1.3 cm simple cyst in the mid kidney. No imaging follow-up is recommended. LEFT KIDNEY: 13.0 x 5.4 x 5.0 cm (SAG x AP x TRV). The kidney is normal in size, contour, and echogenicity. Renal cortical thickness is normal. No renal calculi or hydronephrosis. There are multiple simple cysts, largest measuring 1.2 cm the mid kidney. No imaging follow-up is recommended. BLADDER: Well distended and normal. Bilateral ureteral jets are demonstrated. Prevoid bladder volume is 211 mL. Postvoid bladder volume is 82 mL. Enlarged prostate, volume 75 mL. IMPRESSION: Enlarged prostate. No hydronephrosis. Post void residual of 82 mL. Assessment & Plan Assessment & Plan (1) Weak urinary stream: Code(s): R39.12 - Poor urinary stream Category: Medical (2) Urinary frequency: Code(s): R35.0 - Frequency of micturition Category: Medical (3) BPH loc w urin obs/LUTS: Code(s): N40.1 - Benign prostatic hyperplasia with lower urinary tract symptoms Category: Medical Plan Continue Flomax 0.4 mg at bedtime, Follow-up in 9 months, PSA prior The patient wants to know if he can stop the medication to see how he does off of the medication. Orders: Orders AMB Urinalysis Automated Today Z13.9 - Encounter for screening, unspecified AMB Post Void Residual by ultrasound Today N40.1 - Benign prostatic hyperplasia with lower urinary tract symptoms Patient Instructions: The patient had an opportunity to ask questions regarding treatment plan. The patient expressed understanding and agreement with the above treatment plan. The patient is aware they should contact our office by phone for worsening of their current condition or the appearance of new symptoms. Compliance is encouraged with any medications and followup testing that is ordered. It is a privilege to be allowed the opportunity to participate in the urologic care of your patient. If you have any questions or concerns regarding treatment for the above conditions please do not hesitate to contact me. The office telephone contact is [phone]. This note is constructed in part using voice recognition software. While every effort has been made to ensure accuracy high worker errors may have been included. Yours sincerely, Roel Sweeney MD Coding Level of Care Code Est Pt Level 3 (82522) Diagnoses Weak urinary stream R39.12 Urinary frequency R35.0 BPH loc w urin obs/LUTS N40.1 CPT Codes Post Residual Void - PVR CPT Code: 15663-Ktfz Void Residual by ultrasound ([id number])
== END 2024-04-21 13:28 | disposition home or self-care (01) ==
PROVIDERS: PCP Nurse Practitioner Family; Visit Provider Urology
DX: N40.1 Benign prostatic hyperplasia with lower urinary tract symptoms (principal); R39.12 Poor urinary stream; R35.0 Frequency of micturition; Z13.9 Encounter for screening, unspecified
CPT/HCPCS: 99213

== ENCOUNTER → 2024-04-21 12:51 | Outpatient (BNVA) | payer MEDICARE, SELFPAY | PROVIDERS: PCP Nurse Practitioner Family; Visit Provider Urology | DX: N40.1 Benign prostatic hyperplasia with lower urinary tract symptoms (principal); N13.8 Other obstructive and reflux uropathy; R39.12 Poor urinary stream; R35.0 Frequency of micturition; Z79.899 Other long term (current) drug therapy | CPT/HCPCS: 51798; 81003; 99212 ==

== ENCOUNTER 2024-04-26 14:47 | Outpatient (AMB) | payer MEDICARE, SELFPAY ==
--- NOTE | 2024-04-26 14:52 | MHC.PC.OV ---
Vital Signs 04/26/24 14:59 Height 5 ft 10 in Weight 203 lb 6 oz BMI 29.2 BP 126/68 Blood Pressure Location Lt brachial Position Sitting Pulse 54 Pulse Source Pulse Oximeter Pulse Oximetry (%) 96 Oxygen Delivery Method Room Air Intake Visit Reasons: 6 Month F/U Labs Allergies cat dander Allergy (Unknown, Verified 04/26/24 15:03) congestion Medication List - Last Reconciled 04/26/24 by PALMIRA Townsend amlodipine 10 mg PO DAILY aspirin 81 mg PO DAILY carvedilol 25 mg PO BID carvedilol 12.5 mg PO BID chlorthalidone 12.5 mg PO QAM metformin 1,000 mg (2 x 500 mg) PO BID rosuvastatin 10 mg PO BEDTIME sacubitril-valsartan 49-51 mg (Entresto) 1 tab PO BID tamsulosin (Flomax) 0.4 mg PO BEDTIME turmeric mg PO zinc acetate PO Tobacco use date assessed: 04/26/24 Fall risk assessment: No Falls in past year Last assessed Fall Risk: 04/26/24 Dental Screening Dental Screen Date: 04/26/24 Did you have a dental visit in the last 12 months?: No Did you have a dental problem in the last 6 months where you did not have access to dental care?: No Was dental information given to patient?: No HPI 6 Month F/U Labs HPI Details Pt is a diabetic, on an ARB and a statin. Due for A1C, will order. Microalbumin is up to date. Denies polyuria, polydipsia, and neuropathy. Pt denies any signs and symptoms of hypoglycemia and does know how to correct it. Eye exam is scheduled. Pt is following up with cardiology and nephrology. Pt c/o fatigue. Will order labs. Pt has a hx of cardiomyopathy with low EF. He has never smoked. [facility] Medical History CAD (coronary artery disease) AAA (abdominal aortic aneurysm) GUTIERREZ (obstructive sleep apnea) Cardiomyopathy HTN (hypertension) Dyslipidemia Surgical History Hx of colonoscopy Hx of appendectomy Family History Father Asthma Bronchitis Mother Lung cancer Social History Household Members Other:: sister Housing: House Are you a primary personal care home administrator to a significant other at home: No Do you presently have visiting nurse or other home services: No Alcohol intake: never Patient Tobacco Use Status: Never used Tobacco e-Cigarette/Vaping Use: Never Used Second Hand Smoke Exposure: No service: No Current occupational status: retired Cognitive needs: No Hearing needs: No Vision needs: No Questionnaire Thrive Questionnaire Date Thrive assessed: 11/13/23 AUDIT C Alcohol Use Questionnaire (AUDIT-C) 1. How often do you have a drink containing alcohol?: Monthly or less 2. How many drinks containing alcohol do you have on a typical day when you are drinking?: 1 or 2 3. How often do you have six or more drinks on one occasion?: Never Total Score: 1 Score Reviewed/Action Taken: Yes MARCIAL-7 AMB Questionnaire MARCIAL-7 Date MARCIAL - 7 assessed: 11/13/23 Source: Developed by Drs. Juan Carlos Hale, Drea Mckinney, Krish Menjivar and colleagues, with an educational richelle from [employer]. Review of Systems Const Reports as per HPI Physical exam (Primary Care) Vital Signs: Last Vital Signs Pulse 54 04/26/24 14:59 BP 126/68 04/26/24 14:59 Pulse Ox 96 04/26/24 14:59 Oxygen Delivery Method Room Air 04/26/24 14:59 BMI result Body Mass Index 29.2 Tobacco/Smoking Status: Tobacco use Status Tobacco use date assessed 04/26/24 04/26/24 15:03 Patient Tobacco Use Status Never used Tobacco 04/26/24 14:55 e-Cigarette/Vaping Use Never Used 04/26/24 14:55 Thrive Assessment: Date of Thrive Assessment Date Thrive assessed 11/13/23 04/26/24 14:55 Const General: cooperative Orientation/consciousness: patient oriented x3 Resp Effort & Inspection: normal respiratory effort Auscultation: clear to auscultation bilaterally Cardio Rate: regular rate Rhythm: regular rhythm Heart sounds: S1 normal heart sound present and S2 normal heart sound present Neuro General: patient oriented x3 Extrem Other: bilat feet: + sensation with use of monofilament, feet intact Psych Appearance: grossly normal Mental Status: mental status grossly normal Speech and movement: Normal speech and movement present Affect: normal affect Attitude: cooperative Thought process: Normal thought process present Thought content: Normal thought content present Insight: Good insight present (Psych) Judgement: Good judgement present (Psych) Assessment and Plan Assessment & Plan (1) Diabetes: Code(s): E11.9 - Type 2 diabetes mellitus without complications Plan: Labs ordered Plan The patient agreed to the use of a medical accounts receivable specialist for this encounter. Scribed for PALMIRA Davila by Joleen Louise medical accounts receivable specialist, on 04/26/2024 at 15:10 EST. Orders: Orders Hemoglobin A1c Today E11.9 - Type 2 diabetes mellitus without complications Lipid Panel Today E11.9 - Type 2 diabetes mellitus without complications Coding Level of Care Code Est Pt Level 3 (49811) Complex EM visit Add On G2211 Diagnoses Diabetes E11.9
[2024-04-26 14:59] VITALS: BP 126/68; PULSE 54; O2SAT 96; BMI 29.2
== END 2024-04-26 15:39 | disposition home or self-care (01) ==
PROVIDERS: PCP Nurse Practitioner Family; Visit Provider Nurse Practitioner Family
DX: E11.9 Type 2 diabetes mellitus without complications (principal)
CPT/HCPCS: 99213; G2211

== ENCOUNTER 2024-04-28 10:26 | Outpatient (REF) | payer MEDICARE, SELFPAY ==
[2024-04-28 13:08] LABS: Appearance Urine Cloudy; Color Urine Yellow; Glucose Urine UA >=1000 mg/dL (Negative); Leukocyte Esterase Urine Moderate (2+) (Negative); Nitrite Urine Negative (Negative); UMIC TRIGGER UACC YES; Urine Blood Negative (Negative); Urine Ketones Negative (Negative); Urine Protein Negative (Neg-Trace)
[2024-04-28 13:10] LABS: MANUAL DIFF FLAG NO
[2024-04-28 13:11] LABS: Bacteria Urine None Seen (None Seen); RBC Urine 0-2 /HPF (0-2); Squamous Epithelial Cell Urine 0-2 /HPF (0-2); UACC Culture Trigger YES; WBC Urine >50 /HPF (0-5)
[2024-04-28 13:31] LABS: Basophils Percent Auto 0.4 % (0-2); Eosinophils Absolute Auto 0.2 X10*3/uL (0.0-0.4); Eosinophils Percent Auto 3.3 % (0-4); Hematocrit 37.8 % (42.0-52.0); Hemoglobin 12.3 g/dl (14.0-18.0); Imm Gran Abs Auto 0.03 X10*3/uL (0.00-0.03); Imm Gran Pct Auto 0.4 % (0.0-0.4); Immature Retic Fraction 16.4 % (2.3-13.4); Lymphocytes Percent Auto 14.3 % (20-40); Mean Corpuscular HGB Conc 32.5 g/dl (31.0-36.0); Mean Corpuscular Hemoglobin 32.3 pg (27.0-33.0); Mean Corpuscular Volume 99.2 fL (80.0-98.0); Mean Platelet Volume 9.3 fL (9.4-12.4); Monocytes Absolute Auto 0.6 X10*3/uL (0.1-1.2); Monocytes Percent Auto 7.6 % (2-11); Neutrophils Absolute Auto 5.4 x10*3/uL (2.0-8.3); Platelet Count 221 X10*3/uL (160-400); Red Blood Count 3.81 X10*6/uL (4.60-5.80); Retic HGB Equivalent 36.2 pg (30.0-35.0); Reticulocyte Percent 1.5 % (0.5-1.8); Reticulocytes Absolute 0.058 X10*6/uL (0.026-0.095); White Blood Count 7.3 X10*3/uL (4.8-10.8)
[2024-04-28 13:44] LABS: Estimated Average Glucose 160 mg/dL; Hemoglobin A1c % 7.2 % (<6.0)
[2024-04-28 14:14] LABS: Cholesterol 111 mg/dL (<200); Ferritin 38 ng/mL (20-250); HDL Cholesterol 33 mg/dL (>40); Iron 57 mcg/dL (45-160); LDL Cholesterol Calculated 48 mg/dL (<100); Percent Iron Saturation 22 % (15-50); Total Iron Binding Capacity 256 mcg/dL (228-428); Triglycerides 153 mg/dL (<150); Unsaturated Iron Binding 199 ug/dL
[2024-04-28 14:30] LABS: Folate 4.1 ng/mL (> or = 4.0); Vitamin B12 372 pg/mL (200-900)
== END 2024-04-28 10:27 | disposition home or self-care (01) ==
LOC: HO.HMGCLDS 10:26
PROVIDERS: PCP Nurse Practitioner Family; Visit Provider Nurse Practitioner Family
DX: E53.8 Deficiency of other specified B group vitamins (principal); D64.9 Anemia, unspecified; E11.9 Type 2 diabetes mellitus without complications
CPT/HCPCS: 36415; 80061; 81001; 82607; 82728; 82746; 83036; 83540; 85025; 85045; 87086

== ENCOUNTER 2024-05-14 10:23 | Outpatient (REF) | payer MEDICARE, SELFPAY ==
[2024-05-14 13:07] LABS: MANUAL DIFF FLAG NO
[2024-05-14 13:13] LABS: Basophils Percent Auto 0.7 % (0-2); Eosinophils Absolute Auto 0.2 X10*3/uL (0.0-0.4); Eosinophils Percent Auto 3.8 % (0-4); Hematocrit 40.2 % (42.0-52.0); Hemoglobin 13.1 g/dl (14.0-18.0); Imm Gran Abs Auto 0.02 X10*3/uL (0.00-0.03); Imm Gran Pct Auto 0.3 % (0.0-0.4); Lymphocytes Absolute Auto 1.2 X10*3/uL (1.2-4.9); Lymphocytes Percent Auto 20.1 % (20-40); Mean Corpuscular HGB Conc 32.6 g/dl (31.0-36.0); Mean Corpuscular Hemoglobin 32.3 pg (27.0-33.0); Mean Platelet Volume 9.2 fL (9.4-12.4); Monocytes Absolute Auto 0.5 X10*3/uL (0.1-1.2); Monocytes Percent Auto 7.7 % (2-11); Neutrophils Percent Auto 67.4 % (45-73); Platelet Count 238 X10*3/uL (160-400); Red Blood Count 4.06 X10*6/uL (4.60-5.80); White Blood Count 5.9 X10*3/uL (4.8-10.8)
[2024-05-14 13:16] LABS: Appearance Urine Clear; Color Urine Yellow; Glucose Urine UA >=1000 mg/dL (Negative); Leukocyte Esterase Urine Moderate (2+) (Negative); Nitrite Urine Negative (Negative); Specific Gravity - Urine 1.015 (1.005-1.025); UMIC TRIGGER UACC YES; Urine Blood Negative (Negative); Urine Ketones Negative (Negative); Urine Protein Negative (Neg-Trace)
[2024-05-14 13:24] LABS: Bacteria Urine None Seen (None Seen); Hyaline Casts Urine 0-2 /LPF (0-2); RBC Urine 0-2 /HPF (0-2); Squamous Epithelial Cell Urine 0-2 /HPF (0-2); UACC Culture Trigger YES; WBC Urine 21-50 /HPF (0-5)
== END 2024-05-14 10:24 | disposition home or self-care (01) ==
LOC: HO.HMGCLDS 10:23
PROVIDERS: PCP Nurse Practitioner Family; Visit Provider Nurse Practitioner Family
DX: D64.9 Anemia, unspecified (principal); E11.9 Type 2 diabetes mellitus without complications; R82.90 Unspecified abnormal findings in urine
CPT/HCPCS: 36415; 81001; 85025; 87086

== ENCOUNTER 2024-05-26 14:51 | Outpatient (AMB) | payer MEDICARE, SELFPAY ==
--- NOTE | 2024-05-26 14:48 | A.OFFVIS_ITS ---
Intake Visit Reasons: Inj-B/L shoulder pain inj.- last inj 02/18/24 Intake Note: Juan Carlos is a 73 year old male who presents with complaints of bilateral shoulder pains. He describes his pains as sharp in nature. The patient is left-hand dominant. He has had cortisone injections in the past which gave him temporary relief. He wishes to hold off on surgery if at all possible. He has done physical therapy exercises which aggravated his pain. Allergies cat dander Allergy (Unknown, Verified 05/26/24 14:48) congestion Medication List - Last Reconciled 05/27/24 by Silverio Newby MD amlodipine 10 mg PO DAILY aspirin 81 mg PO DAILY carvedilol 25 mg PO BID carvedilol 12.5 mg PO BID chlorthalidone 12.5 mg PO QAM metformin 1,000 mg (2 x 500 mg) PO BID rosuvastatin 10 mg PO BEDTIME sacubitril-valsartan 49-51 mg (Entresto) 1 tab PO BID tamsulosin (Flomax) 0.4 mg PO BEDTIME turmeric mg PO zinc acetate PO PFSH Medical History CAD (coronary artery disease) AAA (abdominal aortic aneurysm) GUTIERREZ (obstructive sleep apnea) Cardiomyopathy HTN (hypertension) Dyslipidemia Surgical History Hx of colonoscopy Hx of appendectomy Family History Father Asthma Bronchitis Mother Lung cancer Social History Household Members Other:: sister Housing: House Are you a primary elderly caregiver to a significant other at home: No Do you presently have visiting nurse or other home services: No Alcohol intake: never Patient Tobacco Use Status: Never used Tobacco e-Cigarette/Vaping Use: Never Used Second Hand Smoke Exposure: No service: No Current occupational status: retired Cognitive needs: No Hearing needs: No Vision needs: No Physical Exam Const Other: Well-nourished well-developed very friendly male awake alert and oriented x3 in no acute distress Extrem Other: Bilateral upper extremity examination shows good capillary refill, no skin lesions noted, normal sensation light touch Bilateral shoulder examination shows limited active range of motion, pain with range of motion, mild crepitus with range of motion, positive impingement signs, tenderness over his acromioclavicular joint, no instability Office Procedures Joint Injection/Aspiration Joint Injection/Aspiration Primary Site: left shoulder Prep: site was prepped using aseptic technique Injected: 40 mg of, DepoMedrol and 1% plain lidocaine Procedure: The patient tolerated the procedure well Coding 42040 - Large joint Procedure code (CPT) selection complete Joint Injection/Aspiration Joint Injection/Aspiration Primary Site: right shoulder Prep: site was prepped using aseptic technique Injected: 40 mg of, DepoMedrol and 1% plain lidocaine Procedure: The patient tolerated the procedure well Coding 46667 - Large joint Procedure code (CPT) selection complete Assessment & Plan Assessment & Plan (1) Arthritis of left shoulder region: Code(s): M19.012 - Primary osteoarthritis, left shoulder Category: Medical (2) Arthritis of right shoulder region: Code(s): M19.011 - Primary osteoarthritis, right shoulder Category: Medical Plan Mr. Steele presents with bilateral shoulder pains and stiffness due to impingement syndrome, acromioclavicular joint arthritis, glenohumeral joint arthritis and adhesive capsulitis. I had a lengthy discussion with the patient regarding the treatment options. He wishes to hold off on surgery for as long as possible. I agree with this plan. The risks and benefits of bilateral shoulder cortisone injections were discussed at length with the patient. The patient wished to proceed with the injections. He tolerated the injections well. If he fails continued non operative treatments we will further discuss the risks and benefits of arthroscopic surgery versus total shoulder replacement surgery. Feel free to call me at any time should questions regarding his orthopedic management arise. I spent 21 minutes in reviewing the patient's records and imaging studies, seeing the patient and documenting in the medical record. Orders: Orders AMB Joint Injection/Aspiration 05/26/24 M19.012 - Primary osteoarthritis, left shoulder AMB Joint Injection/Aspiration 05/26/24 M19.011 - Primary osteoarthritis, right shoulder Coding Level of Care Code Est Pt Level 3 (45823) Diagnoses Arthritis of left shoulder region M19.012 Arthritis of right shoulder region M19.011 CPT Codes Coding - Large joint: 17300 - Large joint ([id number]) Coding - 36503 Large joint: 60812 - Large joint ([id number])
== END 2024-05-26 15:28 | disposition home or self-care (01) ==
LOC: HO.HOS 14:51
PROVIDERS: PCP Nurse Practitioner Family; Visit Provider Orthopaedic Surgery
DX: M19.012 Primary osteoarthritis, left shoulder (principal); M19.011 Primary osteoarthritis, right shoulder
CPT/HCPCS: 20610; 99213

== ENCOUNTER → 2024-05-26 14:51 | Outpatient (BNVA) | payer MEDICARE, SELFPAY | PROVIDERS: PCP Nurse Practitioner Family; Visit Provider Orthopaedic Surgery | DX: M19.012 Primary osteoarthritis, left shoulder (principal); M19.011 Primary osteoarthritis, right shoulder | CPT/HCPCS: 20610; 99212; J1010 ==

== ENCOUNTER 2024-08-25 14:05 | Outpatient (AMB) | payer MEDICARE, SELFPAY ==
--- NOTE | 2024-08-25 14:24 | A.OFFVIS_ITS ---
Vital Signs 08/25/24 14:27 Height 5 ft 10 in Weight 203 lb BMI 29.1 Intake Visit Reasons: Inj-B/L shoulder pain inj.- last inj 05/26/24 Intake Note: Juan Carlos is a 74 year old male who presents today for a follow up of his right and left shoulder arthritis s/p bilateral shoulder injections on 05/26/2024. Expresses he would like to repeat the injections. He continues with his home stretching program. He has tried Tylenol and anti-inflammatory medicines which gave him only mild relief. Allergies cat dander Allergy (Unknown, Verified 08/25/24 14:27) congestion Medication List - Last Reconciled 08/26/24 by Silverio Newby MD amlodipine 10 mg PO DAILY aspirin 81 mg PO DAILY carvedilol 25 mg PO BID carvedilol 12.5 mg PO BID chlorthalidone 12.5 mg PO QAM metformin 1,000 mg (2 x 500 mg) PO BID rosuvastatin 10 mg PO BEDTIME sacubitril-valsartan 49-51 mg (Entresto) 1 tab PO BID tamsulosin (Flomax) 0.4 mg PO BEDTIME turmeric mg PO zinc acetate PO PFSH Medical History CAD (coronary artery disease) AAA (abdominal aortic aneurysm) GUTIERREZ (obstructive sleep apnea) Cardiomyopathy HTN (hypertension) Dyslipidemia Surgical History Hx of colonoscopy Hx of appendectomy Family History Father Asthma Bronchitis Mother Lung cancer Social History Household Members Other:: sister Housing: House Are you a primary day care center director to a significant other at home: No Do you presently have visiting nurse or other home services: No Alcohol intake: never Patient Tobacco Use Status: Never used Tobacco e-Cigarette/Vaping Use: Never Used Second Hand Smoke Exposure: No service: No Current occupational status: retired Cognitive needs: No Hearing needs: No Vision needs: No Physical Exam Vital Signs: BMI result Body Mass Index 29.1 Const Other: Well-nourished well-developed very friendly male awake alert and oriented x3 in no acute distress Extrem Other: Bilateral upper extremity examination shows good capillary refill, no skin lesions noted, normal sensation light touch Bilateral shoulder examination shows palpable crepitus with range of motion, pain with range of motion, 4+ out of 5 strength with supraspinatus testing, no instability Office Procedures AMB Joint Injection/Aspiration Joint Injection/Aspiration Primary Site: left shoulder Prep: site was prepped using aseptic technique Injected: 40 mg of, DepoMedrol and 1% plain lidocaine Procedure: The patient tolerated the procedure well Coding - Large joint Procedure code (CPT) selection complete AMB Joint Injection/Aspiration Joint Injection/Aspiration Primary Site: right shoulder Prep: site was prepped using aseptic technique Injected: 40 mg of, DepoMedrol and 1% plain lidocaine Procedure: The patient tolerated the procedure well Coding - Large joint Procedure code (CPT) selection complete Assessment & Plan Assessment & Plan (1) Arthritis of left shoulder region: Code(s): M19.012 - Primary osteoarthritis, left shoulder Category: Medical (2) Arthritis of right shoulder region: Code(s): M19.011 - Primary osteoarthritis, right shoulder Category: Medical Plan Juan Carlos presents with bilateral shoulder pains due to impingement syndrome, adhesive capsulitis and glenohumeral joint arthritis. I had a lengthy discussion with the patient regarding the treatment options. The risks and benefits of bilateral shoulder cortisone injections were discussed at length with the patient. The patient wished to proceed. He tolerated the injections well. He will continue with his home stretching program. He will contact me prior to his follow-up appointment in 3 months should any questions or concerns arise. Feel free to call me at any time should questions regarding his orthopedic management arise. I spent 22 minutes in reviewing the patient's records and imaging studies, seeing the patient and documenting in the medical record. Orders: Orders AMB Joint Injection/Aspiration 08/25/24 M19.012 - Primary osteoarthritis, left shoulder AMB Joint Injection/Aspiration 08/25/24 M19.011 - Primary osteoarthritis, right shoulder Coding Level of Care Code Est Pt Level 3 (41686) Complex EM visit Add On G2211 Diagnoses Arthritis of left shoulder region M19.012 Arthritis of right shoulder region M19.011 CPT Codes Coding - 21432 Large joint: 61270 - Large joint ([id number]) Coding - 73215 Large joint: - Large joint ([id number])
[2024-08-25 14:27] VITALS: BMI 29.1
== END 2024-08-25 14:52 | disposition home or self-care (01) ==
LOC: HO.HOS 14:05
PROVIDERS: PCP Nurse Practitioner Family; Visit Provider Orthopaedic Surgery
DX: M19.012 Primary osteoarthritis, left shoulder (principal); M19.011 Primary osteoarthritis, right shoulder
CPT/HCPCS: 20610; 99213

== ENCOUNTER → 2024-08-25 14:05 | Outpatient (BNVA) | payer MEDICARE, SELFPAY | PROVIDERS: PCP Nurse Practitioner Family; Visit Provider Orthopaedic Surgery | DX: M19.012 Primary osteoarthritis, left shoulder (principal); M19.011 Primary osteoarthritis, right shoulder | CPT/HCPCS: 20610; 99212; J1010; J2003 ==

== ENCOUNTER 2024-09-20 14:39 | Outpatient (AMB) | payer MEDICARE, SELFPAY ==
[2024-09-20 14:41] VITALS: BP 130/70; PULSE 55; O2SAT 97; BMI 28.1
--- NOTE | 2024-09-20 14:41 | A.OFFPC_ITS ---
Vital Signs 09/20/24 14:41 Height 5 ft 10 in Weight 196 lb BMI 28.1 BP 130/70 Blood Pressure Location Lt brachial Position Sitting Pulse 55 Pulse Source Pulse Oximeter Pulse Oximetry (%) 97 Intake Visit Reasons: 5 Month F/U Labs Intake Note: pt is here for 5 month f/up with labs Allergies cat dander Allergy (Unknown, Verified 09/20/24 14:42) congestion Medication List - Last Reconciled 09/20/24 by BEV TownsendP- amlodipine 10 mg PO DAILY aspirin 81 mg PO DAILY carvedilol 25 mg PO BID chlorthalidone 12.5 mg PO QAM empagliflozin (Jardiance) 10 mg PO DAILY metformin 1,000 mg (2 x 500 mg) PO BID rosuvastatin 10 mg PO BEDTIME sacubitril-valsartan 49-51 mg (Entresto) 1 tab PO BID tamsulosin (Flomax) 0.4 mg PO BEDTIME turmeric mg PO zinc acetate PO Tobacco use date assessed: 04/26/24 Fall risk assessment: No Falls in past year Last assessed Fall Risk: 09/20/24 Dental Screening Dental Screen Date: 04/26/24 HPI 5 Month F/U Labs HPI Details History of Present Illness Social History - Discusses modifications in water intak e due to nocturia. - Reports a decrease in activity level d ue to arthritis-related pain. - Utilizes continuous positive airway pr essure (CPAP) for sleep apnea with satisfactory adaptation. Review of Systems - Musculoskeletal: Reports discomfort an d limited mobility in shoulder. - Cardiovascular: Denies dizziness, but has previous concerns about medication side effects. - Neurological: Denies numbness or tingl ing in extremities. - Genitourinary: Reports nocturia, curre ntly controlled. Physical Exam - Neurological- Monofilament test positi ve for sensation in feet. -s1 s2 clear lungs no edema A+Ox3 Results - Labs: Glycated hemoglobin (A1c) at 7.6 % Plan - Type 2 Diabetes Mellitus: Initiate Jar diance 10 mg daily. Continue metformin 500 mg twice daily, monitoring for gastrointestinal tolerance. - Osteoarthritis: Non-invasive managemen t to focus on potential arthroscopic procedure for shoulder scraping as recommended by mass spectrometry specialist. - Hypertension & Heart failure: Continue current regimen of Carvedilol, Amlodipine, Rosuvastatin, and Entresto. - Hyperlipidemia: No changes to current regimen. - Sleep Apnea: Continue use of CPAP. - Preventative Care: Remain up-to-date w ith vaccinations, advised additional immunizations at pharmacy as required. Patient was informed and verbally consented to the use of an ambient scribe for clinic note documentation during this visit. Discussion Notes I discussed with the patient the benefits and risks of adding Jardiance to his diabetes regimen, focusing on its potential impact on cardiovascular health and its cost-effectiveness due to recent coverage changes. In-depth dialogue was held regarding the possibility of a shoulder arthroscopy or scraping proce dure, emphasizing reduced immediate recovery time and the orthopedic surgeon's strong recommendation against more invasive surgical options. The importance of balancing arthritic pain management with diabetes control was reiterated, especially concerning the glycemic impact of corticosteroid treatment. The patient agreed to follow the medication adjustments and expressed understanding of the procedural options and the unlikely risk factors involved. Follow-up is expected in three to four months to evaluate treatment efficacy and discuss ongoing management. Patient Instructions - Begin Jardiance 10 mg daily and monito r for any side effects. - Continue current metformin dose and re port any gastrointestinal issues. - Engage in tolerable physical activity while managing arthritic symptoms. - Follow up with the orthopedic speciali st regarding potential arthroscopy. - Maintain regular CPAP use for sleep ap [place] and manage bedtime routine to reduce nocturia. - [facility] - Return for follow-up in three months o r earlier if experiencing any new or worsening symptoms. [facility] Medical History CAD (coronary artery disease) AAA (abdominal aortic aneurysm) GUTIERREZ (obstructive sleep apnea) Cardiomyopathy HTN (hypertension) Dyslipidemia Surgical History Hx of colonoscopy Hx of appendectomy Family History Father Asthma Bronchitis Mother Lung cancer Social History Household Members Other:: sister Housing: House Are you a primary career development coordinator to a significant other at home: No Do you presently have visiting nurse or other home services: No Alcohol intake: never Patient Tobacco Use Status: Never used Tobacco e-Cigarette/Vaping Use: Never Used Second Hand Smoke Exposure: No service: No Current occupational status: retired Cognitive needs: No Hearing needs: No Vision needs: No Questionnaire PHQ-9 Over the last 2 weeks, how often have you been bothered by any of the following problems? 1. Little interest or pleasure in doing things: not at all 2. Feeling down, depressed, or hopeless: not at all 3. Trouble falling or staying asleep, or sleeping too much: not at all 4. Feeling tired or having little energy: several days 5. Poor appetite or overeating: several days 6. Feeling bad about yourself - or that you are a failure or have let yourself or your family down: not at all 7. Trouble concentrating on things, such as reading the newspaper or watching television: not at all 8. Moving or speaking so slowly that other people could have noticed. Or the opposite - being so fidgety or restless that you have been moving around a lot more than usual: not at all 9. Thoughts that you would be better off or of hurting yourself in some way: not at all Total score: 2 Depression Screening Interpretation: Negative Depression Screening Done: Yes 36100 - PHQ-9 Billing: Yes Source: Developed by Drs. Juan Carlos Hale, Drea Mckinney, Krish Menjivar and colleagues, with an educational richelle from [employer]. Thrive Questionnaire Date Thrive assessed: 09/20/24 I am a: Patient What is your living situation today?: I have a steady place to live Within the past 12 months, did the food you bought not last and you didn't have the money to get more?: Never true Within the past 12 months, did you worry whether your food would run out before you got money to buy more?: Never true Do you have trouble paying for medicines?: No Do you have trouble getting transportation to medical appointments?: No Do you have trouble paying your heating and electricity bill?: No Do you have trouble taking care of your child, family member or friend?: No Do you have trouble with day-to-day activities such as bathing, preparing meals, shopping, managing finances, etc.?: No Are you currently unemployed and looking for a job?: No Are you interested in more education?: No Please select the resources that you would like help with: None Currently or been in a relationship where the following occur: No concerns reported THRIVE Score: 0 AUDIT C Alcohol Use Questionnaire (AUDIT-C) 1. How often do you have a drink containing alcohol?: Monthly or less 2. How many drinks containing alcohol do you have on a typical day when you are drinking?: 1 or 2 3. How often do you have six or more drinks on one occasion?: Never Total Score: 1 Score Reviewed/Action Taken: Yes MARCIAL-7 AMB Questionnaire MARCIAL-7 Date MARCIAL - 7 assessed: 09/20/24 Feeling nervous, anxious, or on edge: 0 = Not at all Not being able to stop or control worryin = Not at all Worrying too much about different things: 0 = Not at all Trouble relaxin = Not at all Being so restless that it is hard to sit still: 0 = Not at all Becoming easily annoyed or irritable: 0 = Not at all Feeling afraid as if something awful might happen: 0 = Not at all Total MARCIAL-7 score (0-4 normal; 5-9 mild; 10-14 moderate; 15-21 severe): 0 Source: Developed by Drs. Juan Carlos Hale, Drea Mckinney, Krish Menjivar and colleagues, with an educational richelle from [employer]. MARCIAL-7 Assessment Billing MARCIAL-7 Assessment Tool: MARCIAL-7 Assessment 41569 Physical exam (Primary Care) Vital Signs: Last Vital Signs Pulse 55 09/20/24 14:41 BP 130/70 09/20/24 14:41 Pulse Ox 97 09/20/24 14:41 BMI result Body Mass Index 28.1 Tobacco/Smoking Status: Tobacco use Status Tobacco use date assessed 04/26/24 09/20/24 14:45 Patient Tobacco Use Status Never used Tobacco 09/20/24 14:45 e-Cigarette/Vaping Use Never Used 09/20/24 14:45 PHQ-9: PHQ-9 Score PHQ-9: Total score 2 09/20/24 14:45 Depression Screening Interpretation: Negative Thrive Assessment: Date of Thrive Assessment Date Thrive assessed 09/20/24 09/20/24 14:45 Currently or been in a relationship where the following occur: No concerns reported Results AMB Hemoglobin A1c AMB Hemoglobin A1c 7.6 % Last Edit by Nav Howard CMA on 09/20/24 15: 02 Results Reviewed Results Reviewed: Laboratory Last Values Hgb A1c (Clinic) 7.6 % (4.0-6.0) H 09/20/24 14:52 Coding Level of Care Code Est Pt Level 3 (16033) Diagnoses Screening PSA (prostate specific antigen) Z12.5 Diabetes E11.9 Additional Codes MARCIAL-7 Assessment Billing - MARCIAL-7 Assessment Tool: MARCIAL-7 Assessment 86156 ([id number]) PHQ-9 - 76903 - PHQ-9 Billing: Yes ([id number]) Assessment & Plan Assessment & Plan (1) Screening PSA (prostate specific antigen): Code(s): Z12.5 - Encounter for screening for malignant neoplasm of prostate Category: Medical (2) Diabetes: Code(s): E11.9 - Type 2 diabetes mellitus without complications Category: Medical Plan . Orders: Orders Comprehensive [place]. Panel Fast Today E11.9 - Type 2 diabetes mellitus without complications, Z12.5 - Encounter for screening for malignant neoplasm of prostate UA CC w/rflx Micro + Cult Today E11.9 - Type 2 diabetes mellitus without complications, Z12.5 - Encounter for screening for malignant neoplasm of prostate Lipid Panel Today E11.9 - Type 2 diabetes mellitus without complications, Z12.5 - Encounter for screening for malignant neoplasm of prostate AMB Hemoglobin A1c Today Z13.9 - Encounter for screening, unspecified Complete Blood Count Auto Diff Today E11.9 - Type 2 diabetes mellitus without complications, Z12.5 - Encounter for screening for malignant neoplasm of prostate TSH reflex Free T4 Today E11.9 - Type 2 diabetes mellitus without complications, Z12.5 - Encounter for screening for malignant neoplasm of prostate Microalbumin, Random (w Creat) Today E11.9 - Type 2 diabetes mellitus without complications, Z12.5 - Encounter for screening for malignant neoplasm of prostate Prostate Specific Antigen Scr Today E11.9 - Type 2 diabetes mellitus without complications, Z12.5 - Encounter for screening for malignant neoplasm of prostate Medications: New empagliflozin (Jardiance) 10 mg PO DAILY 90 tabs 0RF
== END 2024-09-20 16:13 | disposition home or self-care (01) ==
PROVIDERS: PCP Nurse Practitioner Family; Visit Provider Nurse Practitioner Family
DX: Z12.5 Encounter for screening for malignant neoplasm of prostate (principal); E11.9 Type 2 diabetes mellitus without complications; Z13.9 Encounter for screening, unspecified

== ENCOUNTER → 2024-09-20 14:39 | Outpatient (BNVA) | payer MEDICARE, SELFPAY | PROVIDERS: PCP Nurse Practitioner Family; Visit Provider Nurse Practitioner Family | DX: E11.9 Type 2 diabetes mellitus without complications (principal); I10 Essential (primary) hypertension; E78.5 Hyperlipidemia, unspecified | CPT/HCPCS: 83036; 96127; 99212 ==

== ENCOUNTER 2024-10-27 09:16 | Outpatient (AMB) | payer MEDICARE, SELFPAY ==
[2024-10-27 09:31] VITALS: BP 96/60; PULSE 59; O2SAT 95; BMI 29.0
--- NOTE | 2024-10-27 09:31 | A.OFFVIS_ITS ---
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 Pt denies any significant interval medical history changes. In-lab PSG study, 01/12/24, showed severe GUTIERREZ w/ AHI 41/hr and O2 jayla 76%. F/u in-lab PAP titration study, 02/17/24, showed best treatment response to CPAP 9 cmH2O. GUTIERREZ Compliance Report 07/2024- 10/2024 >4 hours usage 100% 90/90 days Total usage 8 hours and 2min Leaks Median 2.0- Max 119.2 AHI is 9.6 Alcon- Strokes REspiration 4 minutes (1%) of study Pt does sleep on his side. Sometimes the mask leaks. The top of the mask does touch on a bump on the left upper lateral nose- it was causing some redness No dry mouth, no headaches He is feeling a little bit more energy, but was hoping to see an even more profound effect. He is now able to dream and remembers his dreams much better. 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 Will f/u in 3 months, monitor AHI. [facility] Medical History CAD (coronary artery disease) AAA (abdominal aortic aneurysm) GUTIERREZ (obstructive sleep apnea) Cardiomyopathy HTN (hypertension) Dyslipidemia Surgical History Hx of colonoscopy Hx of appendectomy Family History Father Asthma Bronchitis Mother Lung cancer Social History Household Members Other:: sister Housing: House Are you a primary acute care surgeon to a significant other at home: No Do you presently have visiting nurse or other home services: No Alcohol intake: never Patient Tobacco Use Status: Never used Tobacco e-Cigarette/Vaping Use: Never Used Second Hand Smoke Exposure: No service: No Current occupational status: retired Cognitive needs: No Hearing needs: No Vision needs: No Review of Systems Const All systems reviewed & are unremarkable except as noted in HPI and below Physical Exam Vital Signs: Last Vital Signs Pulse 59 10/27/24 09:31 BP 96/60 10/27/24 09:31 Pulse Ox 95 10/27/24 09:31 Oxygen Delivery Method Room Air 10/27/24 09:31 BMI result Body Mass Index 29.0 Results Reviewed Results Reviewed: GUTIERREZ Compliance Report 07/2024- 10/2024 >4 hours usage 100% 90/ days Total usage 8 hours and 2min Leaks Median 2.0- Max 119.2 / AHI is 9.6 Alcno- Strokes Respiration 4 minutes (1%) of study Assessment & Plan Assessment & Plan (1) Sleep apnea: Comment: Severe degree of sleep apnea. The AHI was 41/hr and oxygen jayla was 76%. Code(s): G47.30 - Sleep apnea, unspecified Category: Medical Qualifiers: Sleep apnea type: central sleep apnea associated with underlying condition Qualified Code(s): G47.37 - Central sleep apnea in conditions classified elsewhere (2) Hypersomnia: Code(s): G47.10 - Hypersomnia, unspecified Category: Medical Plan -For now, continue CPAP 9 cmH2O nightly > 4 hours, as pt is having good clinical effect from use and reduction in AHI. We have requested PAP compliance report and to be connected to pt's [employer] account. Will consider adjusting PAP tx settings, as goal is AHI < 5/hr Consider changing to F 30/ F 40 style mask- if nose irritation persists. Clean CPAP machine and supplies routinely, Change CPAP supplies routinely. Will f/u in 3 months to monitor AHI, goal, may call or send us a message on the portal. Coding Level of Care Code Est Pt Level 3 (15109) Diagnoses Central sleep apnea due to medical condition G47.37 Sleep apnea type: central sleep apnea associated with underlying condition Hypersomnia G47.10
== END 2024-10-27 10:20 | disposition home or self-care (01) ==
PROVIDERS: Absent Provider Physician Assistant Medical; PCP Nurse Practitioner Family; Visit Provider Nurse Practitioner Family
DX: G47.10 Hypersomnia, unspecified (principal); G47.37 Central sleep apnea in conditions classified elsewhere
CPT/HCPCS: 99213

== ENCOUNTER → 2024-10-27 09:16 | Outpatient (BNVA) | payer MEDICARE, SELFPAY | PROVIDERS: PCP Nurse Practitioner Family; Visit Provider Nurse Practitioner Family | DX: G47.10 Hypersomnia, unspecified (principal); G47.37 Central sleep apnea in conditions classified elsewhere | CPT/HCPCS: 99212 ==

== ENCOUNTER 2024-12-01 14:10 | Outpatient (AMB) | payer MEDICARE, SELFPAY ==
--- NOTE | 2024-12-01 14:20 | MHC.OFFVIS ---
Vital Signs 12/01/24 14:24 Height 5 ft 10 in Weight 202 lb BMI 29.0 Intake Visit Reasons: Bilateral shoulder pains Intake Note: Juan Carlos is a 74 year old male who presents with complaints of progressively worsening bilateral shoulder pains. He describes his pains as sharp in nature. He has had cortisone injections which gave him fairly good relief. He wishes to hold off on surgery if at all possible. Allergies cat dander Allergy (Unknown, Verified 12/01/24 14:24) congestion Medication List - Last Reconciled 12/01/24 by Silverio Newby MD amlodipine 10 mg PO DAILY aspirin 81 mg PO DAILY carvedilol 25 mg PO BID chlorthalidone 12.5 mg PO QAM empagliflozin (Jardiance) 10 mg PO DAILY metformin 1,000 mg (2 x 500 mg) PO BID rosuvastatin 10 mg PO BEDTIME sacubitril-valsartan 97-103 mg (Entresto) 1 tab PO BID tamsulosin (Flomax) 0.4 mg PO BEDTIME turmeric mg PO zinc acetate PO PFSH Medical History CAD (coronary artery disease) AAA (abdominal aortic aneurysm) GUTIERREZ (obstructive sleep apnea) Cardiomyopathy HTN (hypertension) Dyslipidemia Surgical History Hx of colonoscopy Hx of appendectomy Family History Father Asthma Bronchitis Mother Lung cancer Social History Household Members Other:: sister Housing: House Are you a primary hospice care sales consultant to a significant other at home: No Do you presently have visiting nurse or other home services: No Alcohol intake: never Patient Tobacco Use Status: Never used Tobacco e-Cigarette/Vaping Use: Never Used Second Hand Smoke Exposure: No service: No Current occupational status: retired Cognitive needs: No Hearing needs: No Vision needs: No Physical Exam Vital Signs: BMI result Body Mass Index 29.0 Const Other: Well-nourished well-developed very friendly male awake alert and oriented x3 in no acute distress Extrem Other: Bilateral shoulder examination shows pain with range of motion, mild crepitus with range of motion, 4+ out of 5 strength with supraspinatus testing, no instability Office Procedures AMB Joint Injection/Aspiration Joint Injection/Aspiration Primary Site: left shoulder Prep: site was prepped using aseptic technique Injected: 40 mg of, DepoMedrol and 1% plain lidocaine Procedure: The patient tolerated the procedure well Coding - Large joint Procedure code (CPT) selection complete AMB Joint Injection/Aspiration Joint Injection/Aspiration Primary Site: right shoulder Prep: site was prepped using aseptic technique Injected: 40 mg of, DepoMedrol and 1% plain lidocaine Procedure: The patient tolerated the procedure well Coding - Large joint Procedure code (CPT) selection complete Assessment & Plan Assessment & Plan (1) Arthritis of left shoulder region: Code(s): M19.012 - Primary osteoarthritis, left shoulder Category: Medical (2) Arthritis of right shoulder region: Code(s): M19.011 - Primary osteoarthritis, right shoulder Category: Medical Plan Mr. Steele presents with bilateral shoulder pains due to glenohumeral joint arthritis. The risks and benefits of bilateral shoulder cortisone injections were discussed at length with the patient. The patient wished to proceed. He tolerated the injections well. He will continue with his home stretching program. He will contact me prior to his follow-up appointment in 3 months should any questions or concerns arise. Feel free to call me at any time should questions regarding his orthopedic management arise. I spent 21 minutes in reviewing the patient's records and imaging studies, seeing the patient and documenting in the medical record. Orders: Orders AMB Joint Injection/Aspiration Today M19.012 - Primary osteoarthritis, left shoulder AMB Joint Injection/Aspiration Today M19.011 - Primary osteoarthritis, right shoulder Coding Level of Care Code Est Pt Level 3 (30758) Complex EM visit Add On G2211 Diagnoses Arthritis of left shoulder region M19.012 Arthritis of right shoulder region M19.011 CPT Codes Coding - 11794 Large joint: 90415 - Large joint ([id number]) Coding - 14387 Large joint: 71874 - Large joint ([id number])
[2024-12-01 14:24] VITALS: BMI 29.0
--- OUTSIDE RECORDS SUMMARY | 2024-12-01 15:32 | XMS_ITS ---
Author Organization [facility] Address [address] [place] [address] Care Team Providers Care Director Of Media Name Role Phone MICHELLE CLARKE Primary Care Provider Sid Manley Jr [phone] REASON FOR VISIT screening Encounters Encounter Location Date Provider Diagnosis [facility] [place] [address] [place] [id number] 09/26/2023 Sid Bobo Jr Encounter for screening colonoscopy Z12.11 and Colon polyps K63.5 ASSESSMENTS Encounter Date Diagnosis Assessment Notes Treatment Notes Treatment Clinical Notes 09/26/2023 Encounter for screening colonoscopy (ICD-10 - Z12.11) 09/26/2023 Colon polyps (ICD-10 - K63.5) PLAN OF TREATMENT No Information
--- OUTSIDE RECORDS SUMMARY | 2024-12-01 15:33 | XMS_ITS ---
Author Organization [facility] Address [address] [place] [address] Care Team Providers Care Log Chain Worker Name Role Phone MICHELLE CLARKE Primary Care Provider Sid Manley Jr REASON FOR VISIT pathology Encounters Encounter Location Date Provider Diagnosis [facility] [address] [place] [address] 10/08/2023 Sid Bobo Jr PLAN OF TREATMENT No Information
--- OUTSIDE RECORDS SUMMARY | 2024-12-01 15:33 | XMS_ITS | Patient Health Record ---
Author Organization [facility] Address [address] [place] [address] Care Team Providers Care Political Science Professor Name Role Phone MICHELLE CLARKE Primary Care Provider Sid Manley Jr [phone] ALLERGIES No Known Allergies REASON FOR REFERRAL No Information MEDICATIONS Medication SIG (Take, Route, Frequency, Duration) Notes Start Date End Date Status Atenolol 25 MG TAKE 1 TABLET BY SHILPA TH EVERY DAY Oral Once a day Active Fish Oil 1200 MG 1 capsule Orally Onc e a day for 30 day(s) twice a day Active amLODIPine Besy-Benazepril HCl 2.5-10 MG as directed Orally Active Ibuprofen 200 MG 1 tablet with food o r milk as needed Orally Three times a day Active Zinc 50 MG 1 tablet Orally Once a day Active Metoprolol Succinate 25 MG 1 capsule Orally Once a day for 30 day(s) Active Aspirin 81 81 MG 1 tablet Orally Once a day for 30 day(s) Active Vitamin D3 2000 UNIT 1 capsule Orally On ce a day Active Carvedilol 6.25 MG 1 tablet with food Orally Twice a day for 30 day(s) Active Vitamin B Complex-C - one capsule Orally once a day Active Lisinopril 20 MG TAKE 1 TABLET BY SHILPA TH EVERY DAY Oral Once a day Active amLODIPine Besylate 10 MG TAKE 1 TABLET EVERY DAY Oral Once a day Active MiraLax (colon prep) 17 GM/SCOOP mixed with Gatorade or Crystal Light Orally begin at 5:00 p.m. the day before the procedure for 1 day 03/13/2023 Active Simvastatin 40 MG TAKE 1 TABLET BY SHILPA TH EVERY DAY IN THE EVENING Oral Once a day Active metFORMIN HCl ER 500 MG TAKE 2 TABLETS T WICE A DAY ORALLY Oral twice a day Active IMMUNIZATIONS Vaccine Route Administration Date Status Comme nts Influenza Unknown 09/10/2022 Administered Flu vaccine no Preserv 3 and > Unknown 09/16/2018 Refus ed SOCIAL HISTORY Tobacco Use: Social History Observation Description Date Details (start date - stop date) Never Smoker NA - NA Sex Assigned At : Social History Observation Description Sex Assigned At Unknown Tobacco Use/Smoking Question Answer Notes Patient is a nonsmoker Alcohol Screen Question Answer Notes Did you have a drink containing alcohol in the p ast year? 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 (Z79.84) Active confirmed 518304567085801 Problem Long-term use of aspirin therapy (Z79.82) Active confirmed 630926411 PLAN OF TREATMENT Future Test Test Name Order Date COLONOSCOPY 09/16/2018 COLONOSCOPY 03/13/2023 Insurance Providers Payer Name Payer Address Payer Phone Subscriber Number Group Number Insured Name Patient Relationship to Insured Coverage Start Date Coverage End Date [facility] [employer] [facility] [address] [place] [address] [id number] PADMINI MALCOLM Self - patient is the insured MEDICAL (GENERAL) HISTORY Medical History History ICD Code Hyperlipidemia diabetes mellitus hypertension Covid 19 infection AAA Elevated BMI Osteoarthritis CKD 2 Surgical History Surgery Date(Month/Year) appendectomy
--- OUTSIDE RECORDS SUMMARY | 2024-12-01 15:33 | XMS_ITS | Clinical Summary ---
Author Organization [facility] Address [address] [place] [address] Care Team Providers Care Professor Of Languages Name Role Phone Hiram Carrington NP Primary Care Provider [phone] Allergies No known active allergies Medications omega-3 (FISH OIL) 1200 MG capsule Take 1,200 mg by mouth 3 Active metFORMIN (GLUCOPHAGE) 500 MG tablet Take 1,000 mg by mouth in the morning and 1,000 mg in the evening. 3 Active Aspirin Low Dose 81 MG EC tablet Take 81 mg by mouth 1 (one) time each day 2 Active amLODIPine (NORVASC) 10 MG tablet Take 5 mg by mouth 1 (one) time each day 2 Active cyanocobalamin (VITAMIN B-12) 100 MCG tablet Take 50 mcg by mouth 2 (two) times a week Active zinc gluconate 50 MG tablet Take 50 mg by mouth 1 (one) time each day Active Turmeric 500 MG capsule Take by mouth Active carvedilol (COREG) 6.25 MG tablet Take 12.5 mg by mouth And 25 mg 3 Active Entresto 49-51 MG per tablet Take 1 tablet by mouth 3 Active rosuvastatin (CRESTOR) 10 MG tabletIndication s:Chronic kidney disease, stage 2 (mild),Stage 3a chronic kidney disease (HCC),Persistent proteinuria,Rosana l disorder due to type 2 diabetes mellitus <Diabetic nephropathy> (HCC) Take 10 mg by mouth 1 (one) time each day Active tamsulosin (FLOMAX) 0.4 MG 24 hr capsuleIndicatio ns:Chronic kidney disease, stage 2 (mild),Stage 3a chronic kidney disease (HCC),Persistent proteinuria,Rosana l disorder due to type 2 diabetes mellitus <Diabetic nephropathy> (HCC) Take 0.4 mg by mouth 1 (one) time each day Active Dapagliflozin Propanediol (Farxiga) 10 MG tabletIndication s:Chronic kidney disease, stage 2 (mild),Stage 3a chronic kidney disease (HCC),Persistent proteinuria,Rosana l disorder due to type 2 diabetes mellitus <Diabetic nephropathy> (HCC) Take 10 mg by mouth 1 (one) time each day in the morning Active Veltassa 8.4 g packIndications: Chronic kidney disease, stage 2 (mild),Stage 3a chronic kidney disease (HCC),Persistent proteinuria,Rosana l disorder due to type 2 diabetes mellitus <Diabetic nephropathy> (HCC) DISSOLVE 1 PACKET (8.4 GRAMS) IN BEVERAGE & DRINK ONCE DAILY Active Active Problems Problem Noted Date Diagnosed Date Stage 3a chronic kidney disease 04/05/2024 Chronic kidney disease, stage 2 (mild) Abdominal aortic aneurysm 11/12/2022 Diabetes mellitus 11/12/2022 Encounter for other preprocedural examination Hyperlipidemia 11/12/2022 Hypertensive disorder 11/12/2022 Hypertensive heart and renal disease with (congestive) heart failure 11/12/2022 Long-term current use of drug therapy 11/12/2022 Obese class I 11/12/2022 Renal disorder due to type 2 diabetes mellitus 0 11/12/2022 Screening for malignant neoplasm of colon 2022 Proteinuria 11/12/2022 COVID-19 09/24/2022 Overview (11/12/2022): Problem added by Discern Expert Resolved Problems Problem Noted Date Diagnosed Date Resolved Date Microalbuminuria 11/12/2022 03/31/2023 Immunizations Name Administration Dates Next Due Influenza, Unspecified 09/10/2022,09/25/2021, Moderna SARS-COV-2 01/10/2021,12/13/2020 Pfizer SARS-COV-2 08/21/2021 Family History Medical History Relation Comments Cancer Mother unknown Hypertension Mother father Relation Status Comments Father Mother Social History Tobacco Use Types Packs/Day Years Used Date Smoking Tobacco: Never Alcohol Use Standard Drinks/Week Comments Yes 0 (1 standard drink = 0.6 oz pure alcohol) Alcoholic Drinks/day: Occasional social drink Sex and Gender Information Value Date Recorded Sex Assigned at Not on file Legal Sex Male 5:00 PM EST Gender Identity Not on file Sexual Orientation Not on file Last Filed Vital Signs Vital Sign Reading Time Taken Comments Blood Pressure 138/59 04/05/2024 1:10 PM EDT Pulse 85 04/05/2024 1:10 PM EDT Temperature - - Respiratory Rate - - Oxygen Saturation 96% 04/05/2024 1:10 PM EDT Inhaled Oxygen Concentration - - Weight 89.2 kg (196 lb 9.6 oz) 04/05/2024 1:10 P M EDT Height - - Body Mass Index - - Plan of Treatment Upcoming Encounters Date Type Department Care Team (Late st Contact Info) Description 04/11/2025 1:00 PM EDT Office Visit [facility] [address] [place] [address] Mil Mcknight MD [address] [facility] [address] [place] [phone] Health Maintenance Due Date Last Done Comments Pneumococcal Vaccine: 65+ Years (1 of 2 - PCV) 1956 Colorectal Cancer Screening: Annual FOBT 1998 Colorectal Cancer Screening: Colonoscopy 1998 Colorectal Cancer Screening: Sigmoidoscopy 1998 Diabetes: Hemoglobin A1C 11/20/2020 Diabetes: Ophthalmology Exam 11/20/2020 Diabetes: Pedal Pulse Checked 11/20/2020 Diabetes: Sensory Foot Exam 11/20/2020 Diabetes: Visual Foot Exam 11/20/2020 Influenza Vaccine (#1) 2024 2, 09/25/2021, 07/18/2020 Hepatitis B Vaccine Aged Out No longe r eligible based on patient's age to complete this topic Insurance [facility] Care Teams Professor Of Languages Relationship Specialty Start Date End Date Hiram Carrington NP [address] [place] [address] PCP - General Nurse Practitioner 11/06/22
== END 2024-12-01 14:46 | disposition home or self-care (01) ==
PROVIDERS: PCP Nurse Practitioner Family; Visit Provider Orthopaedic Surgery
DX: M19.012 Primary osteoarthritis, left shoulder (principal); M19.011 Primary osteoarthritis, right shoulder
CPT/HCPCS: 20610; 99213

== ENCOUNTER → 2024-12-01 14:10 | Outpatient (BNVA) | payer MEDICARE, SELFPAY | PROVIDERS: PCP Nurse Practitioner Family; Visit Provider Orthopaedic Surgery | DX: M19.012 Primary osteoarthritis, left shoulder (principal); M19.011 Primary osteoarthritis, right shoulder | CPT/HCPCS: 20610; 99212; J1010; J2003 ==

== ENCOUNTER 2025-01-05 10:27 | Outpatient (REF) | payer MEDICARE, SELFPAY ==
[2025-01-05 13:38] LABS: MANUAL DIFF FLAG NO
[2025-01-05 13:39] LABS: Basophils Absolute Auto 0.1 X10*3/uL (0.0-0.2); Basophils Percent Auto 0.8 % (0-2); Eosinophils Absolute Auto 0.2 X10*3/uL (0.0-0.4); Eosinophils Percent Auto 2.7 % (0-4); Hemoglobin 13.3 g/dl (14.0-18.0); Imm Gran Abs Auto 0.02 X10*3/uL (0.00-0.03); Imm Gran Pct Auto 0.3 % (0.0-0.4); Lymphocytes Absolute Auto 1.3 X10*3/uL (1.2-4.9); Lymphocytes Percent Auto 22.3 % (20-40); Mean Corpuscular HGB Conc 33.3 g/dl (31.0-36.0); Mean Corpuscular Hemoglobin 32.4 pg (27.0-33.0); Mean Corpuscular Volume 97.3 fL (80.0-98.0); Mean Platelet Volume 9.1 fL (9.4-12.4); Monocytes Absolute Auto 0.5 X10*3/uL (0.1-1.2); Monocytes Percent Auto 7.6 % (2-11); Neutrophils Percent Auto 66.3 % (45-73); Platelet Count 242 X10*3/uL (160-400); Red Blood Count 4.11 X10*6/uL (4.60-5.80); Red Cell Distribution Width 12.9 % (11.0-16.0)
[2025-01-05 13:52] LABS: Appearance Urine Clear; Color Urine Yellow; Glucose Urine UA >=1000 mg/dL (Negative); Leukocyte Esterase Urine Moderate (2+) (Negative); Nitrite Urine Negative (Negative); UMIC TRIGGER UACC YES; Urine Blood Trace (Negative); Urine Ketones Negative (Negative); Urine Protein Negative (Neg-Trace)
[2025-01-05 13:59] LABS: Bacteria Urine None Seen (None Seen); Hyaline Casts Urine 0-2 /LPF (0-2); RBC Urine 0-2 /HPF (0-2); Squamous Epithelial Cell Urine 0-2 /HPF (0-2); UACC Culture Trigger YES; WBC Urine >50 /HPF (0-5)
[2025-01-05 14:08] LABS: Alanine Aminotransferase 18 U/L (0-40); Alkaline Phosphatase 62 U/L (39-117); Anion Gap 11 (12-20); Aspartate Amino Transferase 20 U/L (5-37); Bilirubin Total 0.7 mg/dL (0.0-1.0); Blood Urea Nitrogen 23 mg/dL (9-16); Calcium 9.2 mg/dL (8.4-10.2); Carbon Dioxide 23 mmol/L (22-29); Chloride 110 mmol/L (96-108); Cholesterol 113 mg/dL (<200); Estimated Glomerular Filt Rate 53; Glucose Fasting 135 mg/dL (60-99); HDL Cholesterol 41 mg/dL (>40); LDL Cholesterol Calculated 45 mg/dL (<100); Potassium 4.4 mmol/L (3.3-5.1); Sodium 140 mmol/L (135-145); Total Protein 6.8 g/dL (6.5-8.0); Triglycerides 139 mg/dL (<150)
[2025-01-05 14:20] LABS: Prostate Specific Antigen Scr 1.92 ng/mL (<0.05-4.0)
[2025-01-05 14:21] LABS: Creatinine Urine 57.75 mg/dL; Microalbum/Creatinine Ratio Ur 34.6 ug/mg cr (<30)
[2025-01-05 14:22] LABS: TSH reflex Free T4 0.56 uIU/mL (0.32-4.0)
== END 2025-01-05 10:28 | disposition home or self-care (01) ==
LOC: HO.HMGCLDS 10:27
PROVIDERS: PCP Nurse Practitioner Family; Visit Provider Nurse Practitioner Family
DX: E11.9 Type 2 diabetes mellitus without complications (principal); Z12.5 Encounter for screening for malignant neoplasm of prostate
CPT/HCPCS: 36415; 80053; 80061; 81001; 82043; 82570; 84153; 84443; 85025; 87086; 96127; 99212

== ENCOUNTER 2025-01-05 12:47 | Outpatient (AMB) | payer MEDICARE, SELFPAY ==
--- NOTE | 2025-01-05 12:51 | A.OFFPC_ITS ---
Vital Signs 01/05/25 12:52 Height 5 ft 10 in Weight 196 lb BMI 28.1 BP 120/60 Blood Pressure Location Lt brachial Position Sitting Pulse 56 Pulse Source Pulse Oximeter Pulse Oximetry (%) 98 Oxygen Delivery Method Room Air Intake Visit Reasons: 3 Months f/up Intake Note: pt is here for 3 mon follow up Marketing Planner Required: No Accompanied by: Self / Same As Patient Allergies cat dander Allergy (Unknown, Verified 01/05/25 13:56) congestion Medication List - Last Reconciled 01/05/25 by DEVON Townsend- amlodipine 10 mg PO DAILY aspirin 81 mg PO DAILY carvedilol 25 mg PO BID chlorthalidone 12.5 mg PO QAM empagliflozin (Jardiance) 10 mg PO DAILY metformin 1,000 mg (2 x 500 mg) PO BID rosuvastatin 10 mg PO BEDTIME sacubitril-valsartan 97-103 mg (Entresto) 1 tab PO BID tamsulosin (Flomax) 0.4 mg PO BEDTIME turmeric mg PO zinc acetate PO Tobacco use date assessed: 01/05/25 Fall risk assessment: No Falls in past year Last assessed Fall Risk: 01/05/25 Dental Screening Dental Screen Date: 01/05/25 Did you have a dental visit in the last 12 months?: Yes Did you have a dental problem in the last 6 months where you did not have access to dental care?: No Was dental information given to patient?: Patient has dentist HPI 3 Months f/up HPI Details Chief Complaint Management of Type 2 Diabetes Mellitus History of Present Illness The patient is a 74-year-old male presenting with concerns regarding Type 2 Diabetes Mellitus management. His Hemoglobin A1c is noted to be 7.2. The patient expresses a preference to manage his condition through dietary changes rather than altering his current medication regimen. He denies experiencing neuropathy and maintains good sensation in his feet, as evidenced by monofilament testing. The patient reports successful weight loss, which has contributed positively to his overall health. Will track karen pt's director of conservation's note. Social History - No detailed social determinants discus sed. Health Maintenance - Monitoring of Type 2 Diabetes Mellitus through patient-reported weight ma nagement. Review of Systems - Neurological: Denies neuropathy. - Weight: Reports weight loss. -denies any cp, sob, intermittent diarrh ea reported, thought to be related to a supplement he is taking Physical Exam General: Cooperative, healthy appearing, comfortable, no acute distress and well developed Orientation: Patient oriented x3 Limitations: No limitations Head: Normal to inspection Ears: Hearing grossly normal bilaterally Nose: Normal external nose present Face and sinus: Normal facial exam Eyes: Appearance normal, both eyes and all related structures Neck: Normal visual inspection and Yes full ROM Respiratory: Normal respiratory effort and able to speak in complete sentences. Clear to auscultation bilaterally Cardiovascular: Bradycardic. Normal S1 and S2 GI: Normal to inspection. Soft to palpation and nontender Skin: No rashes or lesions noted Neuro: Patient oriented x3 Extremities: Normal to inspection. Good sensation throughout feet with use of monofilament. Positive pedal pulses by lab Results - Labs: Hemoglobin A1c is 7.2. Plan The management of the patient's Type 2 Diabetes Mellitus focused on diet modifications rather than changes to the current medication regimen, in accordance with the patient's preferences. Monitoring of A1c levels will persist. Given the positive monofilament test for foot sensation, regular assessments will continue. Plans to reschedule the postponed eye exam were addressed to provide comprehensive diabetes management. Discussion Notes I discussed with the patient the importance of maintaining current dietary regimens to control Type 2 Diabetes Mellitus and reviewed the significance of regular A1c assessments. We collectively decided against medication changes due to the patient's expressed preference. We focused on foot care vigilantly, given the positive monofilament test. I also encouraged the patient to reschedule his postponed eye exam to manage potential diabetic retinopathy, emphasizing comprehensive diabetes management. Patient Instructions - Focus on dietary changes to manage blo od sugar levels. - Monitor blood glucose and follow up on A1c regularly. - Continue regular foot care, watch for changes in sensation. - Reschedule and attend eye exam as it w as postponed. [facility] Medical History CAD (coronary artery disease) AAA (abdominal aortic aneurysm) GUTIERREZ (obstructive sleep apnea) Cardiomyopathy HTN (hypertension) Dyslipidemia Surgical History Hx of colonoscopy Hx of appendectomy Family History Father Asthma Bronchitis Mother Lung cancer Social History Household Members Other:: sister Housing: House Are you a primary lawn caretaker to a significant other at home: No Do you presently have visiting nurse or other home services: No Alcohol intake: never Patient Tobacco Use Status: Never used Tobacco e-Cigarette/Vaping Use: Never Used Second Hand Smoke Exposure: No service: No Current occupational status: retired Cognitive needs: No Hearing needs: No Vision needs: No Questionnaire PHQ-9 Over the last 2 weeks, how often have you been bothered by any of the following problems? 1. Little interest or pleasure in doing things: not at all 2. Feeling down, depressed, or hopeless: not at all 3. Trouble falling or staying asleep, or sleeping too much: not at all 4. Feeling tired or having little energy: not at all 5. Poor appetite or overeating: not at all 6. Feeling bad about yourself - or that you are a failure or have let yourself or your family down: not at all 7. Trouble concentrating on things, such as reading the newspaper or watching television: not at all 8. Moving or speaking so slowly that other people could have noticed. Or the opposite - being so fidgety or restless that you have been moving around a lot more than usual: not at all 9. Thoughts that you would be better off or of hurting yourself in some way: not at all Total score: 0 Depression Screening Interpretation: Negative Depression Screening Done: Yes 21427 - PHQ-9 Billing: Yes Source: Developed by Drs. Juan Carlos Hale, Drea Mckinney, Krish Menjivar and colleagues, with an educational richelle from [employer]. Thrive Questionnaire Date Thrive assessed: 01/05/25 I am a: Patient What is your living situation today?: I have a steady place to live Within the past 12 months, did the food you bought not last and you didn't have the money to get more?: Never true Within the past 12 months, did you worry whether your food would run out before you got money to buy more?: Never true Do you have trouble paying for medicines?: No Do you have trouble getting transportation to medical appointments?: No Do you have trouble paying your heating and electricity bill?: No Do you have trouble taking care of your child, family member or friend?: No Do you have trouble with day-to-day activities such as bathing, preparing meals, shopping, managing finances, etc.?: No Are you currently unemployed and looking for a job?: No Are you interested in more education?: No Please select the resources that you would like help with: None Currently or been in a relationship where the following occur: No concerns reported THRIVE Score: 0 AUDIT C Alcohol Use Questionnaire (AUDIT-C) 1. How often do you have a drink containing alcohol?: Monthly or less 2. How many drinks containing alcohol do you have on a typical day when you are drinking?: 1 or 2 3. How often do you have six or more drinks on one occasion?: Never Total Score: 1 Score Reviewed/Action Taken: Yes MARCIAL-7 AMB Questionnaire MARCIAL-7 Date MARCIAL - 7 assessed: 01/05/25 Feeling nervous, anxious, or on edge: 0 = Not at all Not being able to stop or control worryin = Not at all Worrying too much about different things: 0 = Not at all Trouble relaxin = Not at all Being so restless that it is hard to sit still: 0 = Not at all Becoming easily annoyed or irritable: 0 = Not at all Feeling afraid as if something awful might happen: 0 = Not at all Total MARCIAL-7 score (0-4 normal; 5-9 mild; 10-14 moderate; 15-21 severe): 0 Source: Developed by Drs. Juan Carlos Hale, Drea Mckinney, Krish Menjivar and colleagues, with an educational richelle from [employer]. MARCIAL-7 Assessment Billing MARCIAL-7 Assessment Tool: MARCIAL-7 Assessment 96112 Physical exam (Primary Care) Vital Signs: Last Vital Signs Pulse 56 01/05/25 12:52 BP 120/60 01/05/25 12:52 Pulse Ox 98 01/05/25 12:52 Oxygen Delivery Method Room Air 01/05/25 12:52 BMI result Body Mass Index 28.1 Tobacco/Smoking Status: Tobacco use Status Tobacco use date assessed 01/05/25 01/05/25 12:57 Patient Tobacco Use Status Never used Tobacco 01/05/25 12:51 e-Cigarette/Vaping Use Never Used 01/05/25 12:51 PHQ-9: PHQ-9 Score PHQ-9: Total score 0 01/05/25 13:22 Depression Screening Interpretation: Negative Thrive Assessment: Date of Thrive Assessment Date Thrive assessed 01/05/25 01/05/25 12:57 Currently or been in a relationship where the following occur: No concerns reported Coding Level of Care Code Est Pt Level 3 (74455) Diagnoses Diabetes E11.9 Additional Codes MARCIAL-7 Assessment Billing - MARCIAL-7 Assessment Tool: MARCIAL-7 Assessment 50088 ([id number]) PHQ-9 - 84304 - PHQ-9 Billing: Yes ([id number]) Assessment & Plan Assessment & Plan (1) Diabetes: Code(s): E11.9 - Type 2 diabetes mellitus without complications Category: Medical Plan .
[2025-01-05 12:52] VITALS: BP 120/60; PULSE 56; O2SAT 98; BMI 28.1
--- OUTSIDE RECORDS SUMMARY | 2025-01-05 15:08 | XMS_ITS | Clinical Summary ---
Author Organization [facility] Address [address] [place] [address] Care Team Providers Care Stem Lead Former Name Role Phone Hiram Carrington NP Primary Care Provider [phone] Allergies No known active allergies Medications omega-3 [...] Visit [facility] [address] [place] [address] Mil Mcknight MD [address] [facility] [address] [place] [phone] Health Maintenance Due Date Last Done Comments [...] patient's age to complete this topic Insurance [facility] Care Teams Stem Lead Former Relationship Specialty Start Date End Date Hiram Carrington NP [address] [place] [address] PCP - General Nurse Practitioner 11/06/22
== END 2025-01-05 13:42 | disposition home or self-care (01) ==
LOC: HO.HMCC 12:47
PROVIDERS: PCP Nurse Practitioner Family; Visit Provider Nurse Practitioner Family
DX: E11.9 Type 2 diabetes mellitus without complications (principal)

== ENCOUNTER 2025-01-17 12:40 | Outpatient (REF) | payer MEDICARE, SELFPAY ==
--- OUTSIDE RECORDS SUMMARY | 2025-01-17 16:50 | XMS_ITS | Clinical Summary ---
Author Organization [facility] Address [address] [place] [address] Care Team Providers Care Supervising Broker Name Role Phone Hiram Carrington NP Primary Care Provider [phone] Allergies No known active allergies Medications omega-3 [...] Visit [facility] [address] [place] [address] Mil Mcknight MD [address] [facility] [address] [place] [phone] Health Maintenance Due Date Last Done Comments [...] patient's age to complete this topic Insurance [facility] Care Teams Supervising Broker Relationship Specialty Start Date End Date Hiram Carrington NP [address] [place] [address] PCP - General Nurse Practitioner 11/06/22
[2025-01-17 16:58] LABS: Urine Cytology See Pathology rpt
== END 2025-01-17 12:41 | disposition home or self-care (01) ==
LOC: HO.LAB 12:40
PROVIDERS: PCP Nurse Practitioner Family; Visit Provider Urology
DX: N40.1 Benign prostatic hyperplasia with lower urinary tract symptoms (principal); N13.8 Other obstructive and reflux uropathy; R35.0 Frequency of micturition; R39.12 Poor urinary stream; R31.0 Gross hematuria
CPT/HCPCS: 81003; 88112; 99212

== ENCOUNTER 2025-01-17 12:40 | Outpatient (AMB) | payer MEDICARE, SELFPAY ==
--- NOTE | 2025-01-17 12:55 | A.OFFVIS_ITS ---
Intake Visit Reasons: 9m/PSA Intake Note: Patient is present for 9M/PSA Urology Medication:TAMSULOSIN Antibiotic Allergy:NONE Blood Thinner:ASPIRIN Game Operator Required: No Allergies cat dander Allergy (Unknown, Verified 01/17/25 13:06) congestion HPI Comments Details: 01/17/25--follow-up BPH and lower urinary tract symptoms. Juan Carlos has been prescribed tamsulosin. He states that he cut back on his fluid intake and noticed blood in his urine on a couple of urine voids. He increased his fluid intake and has not seen any more blood in the urine. In review of his chart he did have a renal ultrasound March, there were bilateral simple cysts, no suspicious renal parenchymal lesions. Discussed plan for follow-up office cystoscopy. I reviewed PSA results are within normal limits. I will send urine for cytology. Check CT urogram Results: PSA--01/05/25--1.92 ng/mL 04/21/24--Juan Carlos is here for three-month follow-up. He was initially evaluated on 01/19/2024 for lower urinary tract symptoms, urinary frequency and nocturia as well as a weak stream. He was started on tamsulosin and sent for a renal ultrasound. He states he feels the medication is working well. He states he also was evaluated for sleep apnea and the treatment for the sleep apnea. I have discussed the renal ultrasound 03/29/2024, results, kidneys are within normal limits, bilateral simple cysts, Enlarged prostate, volume 75 mL.. The patient wants to know if he can stop the tamsulosin if he is doing better. I want him to continue the tamsulosin for 3 months. At that point he may stopped the medication, but he is advised that his symptoms may return once off of the tamsulosin. He is to call our office if he does stopped the medication. Otherwise follow-up in 9 months PSA at that time. 01/19/24--Juan Carlos is a 73-year-old male with history of coronary artery disease, diabetes, hypertension. The patient complains of increased urinary frequency at nighttime and a weak stream. He states he is being evaluated for sleep apnea. He denies irritative voiding symptoms. In review of the chart he had PSA 11/13/2023 that was normal 1.38. Urinalysis trace blood, protein present. Prostate Exam: Smooth mild to moderately enlarged no suspicious nodules palpated I have discussed trial of alpha-kathleen Flomax 0.4 mg at bedtime, will evaluate with ultrasound retroperitoneum. Follow-up in 3 months [facility] Medical History CAD (coronary artery disease) AAA (abdominal aortic aneurysm) GUTIERREZ (obstructive sleep apnea) Cardiomyopathy HTN (hypertension) Dyslipidemia Surgical History Hx of colonoscopy Hx of appendectomy Family History Father Asthma Bronchitis Mother Lung cancer Social History Household Members Other:: sister Housing: House Are you a primary care professional to a significant other at home: No Do you presently have visiting nurse or other home services: No Alcohol intake: never Patient Tobacco Use Status: Never used Tobacco e-Cigarette/Vaping Use: Never Used Second Hand Smoke Exposure: No service: No Current occupational status: retired Cognitive needs: No Hearing needs: No Vision needs: No Review of Systems Const All systems reviewed & are unremarkable except as noted in HPI and below Reports no additional complaints Eyes Reports no additional complaints ENT Reports no additional complaints Card Reports no additional complaints Resp Reports no additional complaints GI Reports no additional complaints Reports as per HPI Musc Reports no additional complaints Skin/Breast Reports system reviewed and no additional complaints, except as documented Neuro Reports no additional complaints Psych Reports no additional complaints Endo Reports no additional complaints John/Lymph Reports no additional complaints Aller/Immun Reports no additional complaints Results AMB Urinalysis, Automated UA Leukoctes 70 Yarely/uL Last Edit by TAPAN Ware on 01/17/25 13:19 UA Nitrite Negative Last Edit by TAPAN Ware on 01/17/25 13:19 UA Urobilinogen 3.5 mg/dL Last Edit by TAPAN Ware on 01/17/25 13:1 9 UA Protein 15 mg/dL Last Edit by TAPAN Ware on 01/17/25 13:19 UA pH 5.5 Last Edit by TAPAN Ware on 01/17/25 13:19 UA Blood 0 Ronald/uL Last Edit by TAPAN Ware on 01/17/25 13:19 UA Specific [place] 1.015 Last Edit by TAPAN Ware on 01/17/25 13: 19 UA Ketone Negative Last Edit by TAPAN Ware on 01/17/25 13:19 UA Bilirubin 0 mg/dL Last Edit by TAPAN Ware on 01/17/25 13:19 UA Glucose 30 mg/dL Last Edit by TAPAN Ware on 01/17/25 13:19 Results Reviewed Results Reviewed: Date of Service: 03/29/24 EXAMINATION: US RETROPERITONEAL COMPLETE (RENAL) CLINICAL INFORMATION: Frequency of micturition. COMPARISON: Renal ultrasound 04/19/2008. TECHNIQUE: Real-time imaging of the kidneys and bladder. FINDINGS: RIGHT KIDNEY: 9.6 x 5.6 x 5.3 cm (SAG x AP x TRV). The kidney is normal in size, contour, and echogenicity. Renal cortical thickness is normal. No renal calculi or hydronephrosis. 1.3 cm simple cyst in the mid kidney. No imaging follow-up is recommended. LEFT KIDNEY: 13.0 x 5.4 x 5.0 cm (SAG x AP x TRV). The kidney is normal in size, contour, and echogenicity. Renal cortical thickness is normal. No renal calculi or hydronephrosis. There are multiple simple cysts, largest measuring 1.2 cm the mid kidney. No imaging follow-up is recommended. BLADDER: Well distended and normal. Bilateral ureteral jets are demonstrated. Prevoid bladder volume is 211 mL. Postvoid bladder volume is 82 mL. Enlarged prostate, volume 75 mL. IMPRESSION: Enlarged prostate. No hydronephrosis. Post void residual of 82 mL. Assessment & Plan Assessment & Plan (1) Weak urinary stream: Code(s): R39.12 - Poor urinary stream Category: Medical (2) Urinary frequency: Code(s): R35.0 - Frequency of micturition Category: Medical (3) BPH loc w urin obs/LUTS: Code(s): N40.1 - Benign prostatic hyperplasia with lower urinary tract symptoms Category: Medical (4) Gross hematuria: Code(s): R31.0 - Gross hematuria Category: Medical Plan Discussed plan for follow-up office cystoscopy. I reviewed PSA results are within normal limits. I will send urine for cytology. Check CT urogram Orders: Orders Blood Urea Nitrogen Today R31.0 - Gross hematuria AMB Urinalysis Automated Today Z13.9 - Encounter for screening, unspecified CT urogram Today R31.0 - Gross hematuria Creatinine Today R31.0 - Gross hematuria Patient Instructions: The patient had an opportunity to ask questions regarding treatment plan. The patient expressed understanding and agreement with the above treatment plan. The patient is aware they should contact our office by phone for worsening of their current condition or the appearance of new symptoms. Compliance is encouraged with any medications and followup testing that is ordered. It is a privilege to be allowed the opportunity to participate in the urologic care of your patient. If you have any questions or concerns regarding treatment for the above conditions please do not hesitate to contact me. The office telephone contact is [phone]. This note is constructed in part using voice recognition software. While every effort has been made to ensure accuracy sandblast or shotblast equipment tender errors may have been included. Yours sincerely, Roel Sweeney MD Coding Level of Care Code Est Pt Level 4 (59774) Diagnoses Weak urinary stream R39.12 Urinary frequency R35.0 BPH loc w urin obs/LUTS N40.1 Gross hematuria R31.0
--- OUTSIDE RECORDS SUMMARY | 2025-01-17 14:19 | XMS_ITS | Patient Health Record ---
Author Organization [facility] Address [address] [place] [address] Care Team Providers Care Bucket Wash Operator Name Role Phone MICHELLE CLARKE Primary Care Provider Sid Manley Jr Allergies No Known Allergies Reason For Referral No Information Medications Medication SIG (Take, Route, Frequency, Duration) Notes [...] DAY ORALLY Oral twice a day Active Immunizations Vaccine Route Administration Date Status Comme nts Influenza Unknown 09/10/2022 Administered Flu vaccine no Preserv 3 and > Unknown 09/16/2018 Refus ed Social History Tobacco Use: Social History Observation Description Date Details (start date - stop date) Never Smoker NA - NA Tobacco Use/Smoking Question Answer Notes Patient is a nonsmoker Alcohol Screen Question Answer Notes Did you have a drink containing alcohol in the p ast year? 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 t use of oral hypoglycemic drug (Z79.84) Active confirmed Plan Of Treatment Future Test Test Name Order Date COLONOSCOPY 09/16/2018 COLONOSCOPY 03/13/2023 Insurance Providers Payer Name Payer Address Payer Phone Subscriber Number Group Number Insured Name Patient Relationship to Insured Coverage Start Date Coverage End Date [facility] BCBS PROFESSIONAL CLAIMS [address] [place] [address] [id number] PADMINI MALCOLM Self - patient is the insured Medical (General) History Medical History History ICD Code Hyperlipidemia diabetes mellitus hypertension Covid 19 infection AAA Elevated BMI Osteoarthritis CKD 2 Surgical History Surgery Date(Month/Year) appendectomy
--- OUTSIDE RECORDS SUMMARY | 2025-01-17 14:19 | XMS_ITS ---
Author Organization [facility] Address [address] [place] [address] Care Team Providers Care Heater Operator Name Role Phone MICHELLE CLARKE Primary Care Provider Sid Manley Jr [phone] REASON FOR VISIT screening Encounters Encounter Location Date Provider Diagnosis [facility] Outpatient [address] [place] [id number] 09/26/2023 Sid Bobo Jr Encounter for screening colonoscopy Z12.11 and Colon polyps K63.5 Assessments Encounter Date Diagnosis (ICD Code) Assessment Notes Treatment Notes Treatment Clinical Notes Section Notes 09/26/2023 Encounter for screening colonoscopy (ICD-10 - Z12.11) 09/26/2023 Colon polyps (ICD-10 - K63.5) Plan Of Treatment No Information Progress Notes * PADMINI REEVES ODOB:[birth year] (74 yo M)Acc No.[id number]:09/26/2023 COLON WITH MAC Patient:?LEANDROPADMINI NICHOLS Provider:?Sid Bobo MD :1950???Age:73 Y???Sex:Male Landry e:09/26/2023 Address:[address] [place], [place] [id number] Pcp:MICHELLE CLARKE Subjective: * Chief Complaints: * ???1. Screening. * Medical History:? Objective: * Vitals:? Assessment: * Assessment: 1.?Encounter for screening c olonoscopy - Z12.11 (Primary)???2.?Colon polyps - K63.5??? Plan: * Treatment: * Procedure Codes:?71560 LESIO N REMOVAL COLONOSCOPY, 47227 COLONOSCOPY AND BIOPSY, Modifiers: 59 * * The named appointment provid er may or may not be the originator of this progress note, and it is not deemed complete until electronically signed by the appointment provider. Sign off status: Pending * Provider:?Sid Bobo MD Date:?1 11/27/2022 Generated for Holly nelson/Wili/Charlieitting on:?01/17/2025 02:19 PM EDT
--- OUTSIDE RECORDS SUMMARY | 2025-01-17 14:19 | XMS_ITS | Clinical Summary ---
Author Organization [facility] Address [address] [place] [address] Care Team Providers Care Engineering And Development Director Name Role Phone Hiram Carrington NP Primary Care Provider [phone] Allergies No known active allergies Medications omega-3 [...] Visit [facility] [address] [place] [address] Mil Mcknight MD [address] [facility] [address] [place] [phone] Health Maintenance Due Date Last Done Comments [...] patient's age to complete this topic Insurance [facility] Care Teams Engineering And Development Director Relationship Specialty Start Date End Date Hiram Carrington NP [address] [place] [address] PCP - General Nurse Practitioner 11/06/22
--- OUTSIDE RECORDS SUMMARY | 2025-01-17 14:19 | XMS_ITS ---
Author Organization [facility] Address [address] [place] [address] Care Team Providers Care Quarter Section Ironer Name Role Phone MICHELLE CLARKE Primary Care Provider Sid Manley Jr [phone] REASON FOR VISIT pathology Encounters Encounter Location Date Provider Diagnosis [facility] [address] [place] [address] 10/08/2023 Sid Bobo Jr Plan Of Treatment No Information Progress Notes * PADMINI REEVES ODOB:[birth year] (73 yo M)Acc No.[id number]:10/08/2023 Patient:?PADMINI REEVES :1950???Age:73 Y???Sex:Male Address:[address] [place] [address] * true * Date:? Generated for Holly nelson/Wili/eTransmitting on:?01/17/2025 02:19 PM EDT
== END 2025-01-17 13:24 | disposition home or self-care (01) ==
LOC: HO.HUSH 12:42
PROVIDERS: PCP Nurse Practitioner Family; Visit Provider Urology
DX: N40.1 Benign prostatic hyperplasia with lower urinary tract symptoms (principal); R39.12 Poor urinary stream; R35.0 Frequency of micturition; R31.0 Gross hematuria; Z13.9 Encounter for screening, unspecified
CPT/HCPCS: 99214

== ENCOUNTER 2025-01-19 09:38 | Outpatient (AMB) | payer BC, SELFPAY ==
--- NOTE | 2025-01-19 10:25 | A.OFFVIS_ITS ---
Vital Signs 01/19/25 10:27 Height 5 ft 10 in Weight 205 lb BMI 29.4 BP 122/60 Blood Pressure Location Lt brachial Position Sitting Pulse 57 Pulse Source Pulse Oximeter Pulse Oximetry (%) 96 Oxygen Delivery Method Room Air Intake Visit Reasons: 3 mo follow up Intake Note: Patient presents for 3 month follow up GUTIERREZ. Compliance in chart. Dehairer Required: No Accompanied by: Self / Same As Patient Allergies cat dander Allergy (Unknown, Verified 01/19/25 10:28) congestion HPI Comments Details: 73-yr-old male presents for follow-up visit of sleep apnea. Pt denies any significant interval medical history changes. In-lab PSG study, 01/12/24, showed severe GUTIERREZ w/ AHI 41/hr and O2 jayla 76%. F/u in-lab PAP titration study, 02/17/24, showed best treatment response to CPAP 9 cmH2O. Patient has continued on CPAP 9 cmH2O, and his 30 day compliance report shows usage 100% usage. He states he is sleeping well with use- though has some fragmented sleep due to nocturia due to increasing his fluid intake. His residual AHI is 6.9/hr- but he declines change in his current PAP settings as he is sleeping well with it and has good daytime energy. He has received a new CPAP mask, which he is tolerating much better. He is curious if the dry mouth sensation you can sometimes feel with the CPAP, we will exacerbate systemic dehydration- I did explain that the CPAP would not cause systemic dehydration. Encouraged patient to continue to increase fluids as he is trying to do. Thirty day CPAP compliance report reviewed, 12/19/2024 through 01/17/2025 [facility] home care CPAP 9 cm H2O EPR 2 Usage > 4 hours 100% Average usage on days used 8 hours minute Immediately 1.6 L per Residual AHI 6.9 per. PFSH Medical History CAD (coronary artery disease) AAA (abdominal aortic aneurysm) GUTIERREZ (obstructive sleep apnea) Cardiomyopathy HTN (hypertension) Dyslipidemia Surgical History Hx of colonoscopy Hx of appendectomy Family History Father Asthma Bronchitis Mother Lung cancer Social History Household Members Other:: sister Housing: House Are you a primary ocular care technologist to a significant other at home: No Do you presently have visiting nurse or other home services: No Alcohol intake: never Patient Tobacco Use Status: Never used Tobacco e-Cigarette/Vaping Use: Never Used Second Hand Smoke Exposure: No service: No Current occupational status: retired Cognitive needs: No Hearing needs: No Vision needs: No Physical Exam Vital Signs: Last Vital Signs Pulse 57 01/19/25 10:27 BP 122/60 01/19/25 10:27 Pulse Ox 96 01/19/25 10:27 Oxygen Delivery Method Room Air 01/19/25 10:27 BMI result Body Mass Index 29.4 Const General: no acute distress Orientation/consciousness: patient oriented x3 Resp Effort & Inspection: normal respiratory effort and able to speak in complete sentences Neuro General: patient oriented x3 Psych Mental Status: mental status grossly normal Speech and movement: Clear speech present Attitude: cooperative Assessment & Plan Assessment & Plan (1) Sleep apnea: Comment: Severe degree of sleep apnea. The AHI was 41/hr and oxygen jayla was 76%. Code(s): G47.30 - Sleep apnea, unspecified Category: Medical Qualifiers: Sleep apnea type: obstructive Qualified Code(s): G47.33 - Obstructive sleep apnea (adult) (pediatric) Plan For now, continue CPAP 9 cmH2O nightly > 4 hours, as pt is having good clinical effect from use and reduction in AHI. Patient advised to notify us if residual AHI increases to about 10 per hour. Clean CPAP machine and supplies routinely. Change CPAP supplies routinely. Consistently use distilled water in CPAP water tank reservoir Pt to contact us or respiratory company with any questions or concerns. Pt to follow-up in 12 months or sooner prn. Coding Level of Care Code Est Pt Level 3 (88593) Diagnoses Obstructive sleep apnea syndrome G47.33 Sleep apnea type: obstructive
[2025-01-19 10:27] VITALS: BP 122/60; PULSE 57; O2SAT 96; BMI 29.4
--- OUTSIDE RECORDS SUMMARY | 2025-01-19 10:53 | XMS_ITS | Patient Health Record ---
Author Organization [facility] Address [address] [place] [address] Care Team Providers Care Escort Patients Name Role Phone MICHELLE CLARKE Primary Care [...] Problem Status W/U Status Risk Notes Problem 631995871 Colon cancer screening (Z12.11) Active confirmed Problem 28094102 Encounter for other preprocedural examination (Z01.818) Active confirmed Problem 533446182 Long-term use of aspirin therapy (Z79.82) Active confirmed Problem 487993404183009 jail curren t use of oral hypoglycemic drug (Z79.84) Active confirmed Plan Of Treatment Future Test Test Name Order Date COLONOSCOPY 09/16/2018 COLONOSCOPY 03/13/2023 Insurance Providers Payer Name Payer Address Payer Phone Subscriber Number Group Number Insured Name Patient Relationship to Insured Coverage Start Date Coverage End Date [facility] BCBS PROFESSIONAL CLAIMS [address] [place] [address] [id number] PADMINI MALCOLM Self - patient is the insured Medical (General) History Medical History History ICD Code Hyperlipidemia diabetes mellitus hypertension Covid 19 infection AAA Elevated BMI Osteoarthritis CKD 2 Surgical History Surgery Date(Month/Year) appendectomy
--- OUTSIDE RECORDS SUMMARY | 2025-01-19 10:53 | XMS_ITS ---
Author Organization [facility] Address [address] [place] [address] Care Team Providers Care Photo Journalist Name Role Phone MICHELLE CLARKE Primary Care Provider Sid Manley Jr [phone] REASON FOR VISIT screening Encounters Encounter Location Date Provider Diagnosis [facility] [address] [place] [phone] 09/26/2023 Sid Bobo Jr Encounter for screening colonoscopy Z12.11 and Colon polyps K63.5 Assessments Encounter Date Diagnosis (ICD Code) Assessment Notes Treatment Notes Treatment Clinical Notes Section Notes 09/26/2023 Encounter for screening colonoscopy (ICD-10 - Z12.11) 09/26/2023 Colon polyps (ICD-10 - K63.5) Plan Of Treatment No Information Progress Notes * LEANDRO PADMINI ODOB:[birth year] (74 yo M)Acc No.[id number]:09/26/2023 COLON WITH MAC Patient:?LEANDROPADMINI NICHOLS Provider:?Sid Bobo MD :1950???Age:73 Y???Sex:Male Landry e:09/26/2023 Address:[address] [place], [place] [id number] Pcp:MICHELLE CLARKE Subjective: * Chief Complaints: * ???1. Screening. * Medical History:? Objective: * Vitals:? Assessment: * Assessment: 1.?Encounter for screening c olonoscopy - Z12.11 (Primary)???2.?Colon polyps - K63.5??? Plan: * Treatment: * Procedure Codes:?68963 LESIO N REMOVAL COLONOSCOPY, 59297 COLONOSCOPY AND BIOPSY, Modifiers: 59 * * The named appointment provid er may or may not be the originator of this progress note, and it is not deemed complete until electronically signed by the appointment provider. Sign off status: Pending * Provider:?Sid Bobo MD Date:?1 11/27/2022 Generated for Holly nelson/Wili/Charlieitting on:?01/19/2025 10:53 AM EDT
--- OUTSIDE RECORDS SUMMARY | 2025-01-19 10:54 | XMS_ITS ---
Author Organization [facility] Address [address] [place] [address] Care Team Providers Care Head Of Data Name Role Phone MICHELLE CLARKE Primary Care Provider Sid Manley Jr REASON FOR VISIT pathology Encounters Encounter Location Date Provider Diagnosis [facility] [address] [place] [address] 10/08/2023 Sid Bobo Jr Plan Of Treatment No Information Progress Notes * PADMINI REEVES ODOB:[birth year] (73 yo M)Acc No.[id number]:10/08/2023 Patient:?PADMINI REEVES :1950???Age:73 Y???Sex:Male Address:[address] [place] [address] * true * Date:? Generated for Holly nelson/Wili/eTransmitting on:?01/19/2025 10:53 AM EDT
--- OUTSIDE RECORDS SUMMARY | 2025-01-19 10:54 | XMS_ITS | Clinical Summary ---
Author Organization [facility] Facility Address [address] [place] [address] Care Team Providers Care Engraver Lettering Name Role Phone Hiram Carrington NP Primary Care Provider [phone] Allergies No known active allergies Medications omega-3 [...] Visit [facility] [address] [place] [address] Mil Mcknight MD [address] [facility] [address] [place] [phone] Health Maintenance Due Date Last Done Comments [...] patient's age to complete this topic Insurance [facility] Care Teams Engraver Lettering Relationship Specialty Start Date End Date Hiram Carrington NP [address] [place] [address] PCP - General Nurse Practitioner 11/06/22
== END 2025-01-19 11:13 | disposition home or self-care (01) ==
PROVIDERS: PCP Nurse Practitioner Family; Visit Provider Nurse Practitioner Family
DX: G47.33 Obstructive sleep apnea (adult) (pediatric) (principal)
CPT/HCPCS: 99213

== ENCOUNTER → 2025-01-19 09:38 | Outpatient (BNVA) | payer BC, SELFPAY | PROVIDERS: PCP Nurse Practitioner Family; Visit Provider Physician Assistant Medical ==

== ENCOUNTER 2025-03-09 14:08 | Outpatient (AMB) | payer MEDICARE, SELFPAY ==
--- NOTE | 2025-03-09 14:13 | MHC.OFFVIS ---
Vital Signs 03/09/25 14:16 Height 5 ft 10 in Weight 205 lb BMI 29.4 Intake Visit Reasons: Bilateral shoulder pains Intake Note: Juan Carlos is a 74 year old male who presents with complaints of progressively worsening bilateral shoulder pains. He describes his pains as achy in nature. Most of the pain is along the lateral aspects of his shoulders. He has tried Tylenol and anti-inflammatory medicines which gave him minimal relief. He has also done physical therapy exercises which aggravated his pain. He has had cortisone injections which gave him fairly good relief. He wishes to hold off on surgery if at all possible. Allergies cat dander Allergy (Unknown, Verified 03/09/25 14:16) congestion Medication List - Last Reconciled 03/09/25 by Silverio Newby MD amlodipine 10 mg PO DAILY aspirin 81 mg PO DAILY carvedilol 25 mg PO BID chlorthalidone 12.5 mg PO QAM empagliflozin (Jardiance) 10 mg PO DAILY metformin 1,000 mg (2 x 500 mg) PO BID rosuvastatin 10 mg PO BEDTIME sacubitril-valsartan 97-103 mg (Entresto) 1 tab PO BID tamsulosin (Flomax) 0.4 mg PO BEDTIME turmeric mg PO zinc acetate PO PFSH Medical History CAD (coronary artery disease) AAA (abdominal aortic aneurysm) GUTIERREZ (obstructive sleep apnea) Cardiomyopathy HTN (hypertension) Dyslipidemia Surgical History Hx of colonoscopy Hx of appendectomy Family History Father Asthma Bronchitis Mother Lung cancer Social History Household Members Other:: sister Housing: House Are you a primary critical care cns to a significant other at home: No Do you presently have visiting nurse or other home services: No Alcohol intake: never Patient Tobacco Use Status: Never used Tobacco e-Cigarette/Vaping Use: Never Used Second Hand Smoke Exposure: No service: No Current occupational status: retired Cognitive needs: No Hearing needs: No Vision needs: No Physical Exam Vital Signs: BMI result Body Mass Index 29.4 Const Other: Well-nourished well-developed very friendly male awake alert and oriented x3 in no acute distress Extrem Other: Bilateral upper extremity examination shows good capillary refill, no skin lesions noted, normal sensation light touch Bilateral shoulder examination shows mild to moderate pain with range of motion, crepitus with range of motion, no instability Office Procedures AMB Joint Injection/Aspiration Joint Injection/Aspiration Primary Site: left shoulder Prep: site was prepped using aseptic technique Injected: 40 mg of, DepoMedrol and 1% plain lidocaine Procedure: The patient tolerated the procedure well Coding - Large joint Procedure code (CPT) selection complete AMB Joint Injection/Aspiration Joint Injection/Aspiration Primary Site: right shoulder Prep: site was prepped using aseptic technique Injected: 40 mg of, DepoMedrol and 1% plain lidocaine Procedure: The patient tolerated the procedure well Coding - Large joint Procedure code (CPT) selection complete Assessment & Plan Assessment & Plan (1) Arthritis of left shoulder region: Code(s): M19.012 - Primary osteoarthritis, left shoulder Category: Medical (2) Arthritis of right shoulder region: Code(s): M19.011 - Primary osteoarthritis, right shoulder Category: Medical Plan Mr. Steele presents with bilateral shoulder pains due to glenohumeral joint arthritis. The risks and benefits of bilateral shoulder cortisone injections were discussed at length with the patient. The patient wished to proceed. He tolerated the injections well. He will continue with his range of motion exercises. He will contact me prior to his follow-up appointment in 3 months should any questions or concerns arise. Feel free to call me at any time should questions regarding his orthopedic management arise. I spent 20 minutes in reviewing the patient's records and imaging studies, seeing the patient and documenting in the medical record. Orders: Orders AMB Joint Injection/Aspiration 03/09/25 M19.012 - Primary osteoarthritis, left shoulder AMB Joint Injection/Aspiration 03/09/25 M19.011 - Primary osteoarthritis, right shoulder Coding Level of Care Code Est Pt Level 3 (78820) Complex EM visit Add On G2211 Diagnoses Arthritis of left shoulder region M19.012 Arthritis of right shoulder region M19.011 CPT Codes Coding - 04310 Large joint: 55952 - Large joint ([id number]) Coding - 19781 Large joint: 90063 - Large joint ([id number])
[2025-03-09 14:16] VITALS: BMI 29.4
--- OUTSIDE RECORDS SUMMARY | 2025-03-09 14:34 | XMS_ITS ---
Author Organization [facility] Address [address] [place] [address] Care Team Providers Care Roller Staker Name Role Phone MICHELLE CLARKE Primary Care Provider Sid Manley Jr REASON FOR VISIT screening Encounters Encounter Location Date Provider Diagnosis [facility] [place] [address] [place] [id number] 09/26/2023 Sid Bobo Jr Encounter for screening colonoscopy Z12.11 and Colon polyps K63.5 Assessments Encounter Date Diagnosis (ICD Code) Assessment Notes Treatment Notes Treatment Clinical Notes Section Notes 09/26/2023 Encounter for screening colonoscopy (ICD-10 - Z12.11) 09/26/2023 Colon polyps (ICD-10 - K63.5) Plan Of Treatment No Information Progress Notes * PADMINI REEVES ODOB:[birth year] (74 yo M)Acc No.[id number]:09/26/2023 COLON WITH MAC Patient:?LEANDROPADMINI NICHOLS Provider:?Sid Bobo MD :1950???Age:73 Y???Sex:Male Landry e:09/26/2023 Address:[address] [place], [place] [id number] Pcp:MICHELLE CLARKE Subjective: * Chief Complaints: * ???1. Screening. * Medical History:? Objective: * Vitals:? Assessment: * Assessment: 1.?Encounter for screening c olonoscopy - Z12.11 (Primary)???2.?Colon polyps - K63.5??? Plan: * Treatment: * Procedure Codes:?45209 LESIO N REMOVAL COLONOSCOPY, 39303 COLONOSCOPY AND BIOPSY, Modifiers: 59 * * The named appointment provid er may or may not be the originator of this progress note, and it is not deemed complete until electronically signed by the appointment provider. Sign off status: Pending * Provider:?Sid Bobo MD Date:?1 11/27/2022 Generated for Holly nelson/Wili/Charlieitting on:?03/09/2025 02:33 PM EDT
--- OUTSIDE RECORDS SUMMARY | 2025-03-09 14:34 | XMS_ITS | Patient Health Record ---
Author Organization [facility] Address [address] [place] [address] Care Team Providers Care Free Lance Artist Name Role Phone MICHELLE CLARKE Primary Care Provider Sid Manley Jr [phone] Allergies No Known Allergies Reason For Referral [...] Problem Status W/U Status Risk Notes Problem 244951323 Colon cancer screening (Z12.11) Active confirmed Problem 97872586 Encounter for other preprocedural examination (Z01.818) Active confirmed Problem 120313782 Long-term use of aspirin therapy (Z79.82) Active confirmed Problem [id number] snf curren t use of oral hypoglycemic drug (Z79.84) Active confirmed Plan Of Treatment Future Test Test Name Order Date COLONOSCOPY 09/16/2018 COLONOSCOPY 03/13/2023 Insurance Providers Payer Name Payer Address Payer Phone Subscriber Number Group Number Insured Name Patient Relationship to Insured Coverage Start Date Coverage End Date [facility] BC[employer] PROFESSIONAL CLAIMS [address] [place] [address] [id number] PADMINI MALCOLM Self - patient is the insured Medical (General) History Medical History History ICD Code Hyperlipidemia diabetes mellitus hypertension Covid 19 infection AAA Elevated BMI Osteoarthritis CKD 2 Surgical History Surgery Date(Month/Year) appendectomy
--- OUTSIDE RECORDS SUMMARY | 2025-03-09 14:34 | XMS_ITS | Clinical Summary ---
Author Organization [facility] Address [address] [place] [address] Care Team Providers Care Knuckler Name Role Phone Hiram Carrington NP Primary Care Provider [phone] Allergies No known active allergies Medications omega-3 [...] Date Resolved Date Microalbuminuria 11/12/2022 03/31/2023 Immunizations Immunization Administration Dates Next Due Influenza, Unspecified 09/10/2022,09/25/2021, [...] Visit [facility] [address] [place] [address] Mil Mcknight MD [address] [address] [place] [phone] Health Maintenance Due Date Last Done Comments Pneumococcal Vaccine: 50+ Years (1 of 2 - PCV) 1968 Colorectal Cancer Screening: Annual FOBT 1998 Colorectal Cancer Screening: Colonoscopy 1998 Colorectal Cancer Screening: Sigmoidoscopy 1998 Diabetes: Hemoglobin A1C 11/20/2020 Diabetes: Ophthalmology Exam 11/20/2020 Diabetes: Pedal Pulse Checked 11/20/2020 Diabetes: Sensory Foot Exam 11/20/2020 Diabetes: Visual Foot Exam 11/20/2020 Influenza Vaccine (Season Ended) 2025 09/10/2022, 09/25/2021, 07/18/2020 Hepatitis B Vaccine Aged Out No longe r eligible based on patient's age to complete this topic Insurance [facility] Care Teams Knuckler Relationship Specialty Start Date End Date Hiram Carrington NP [address] [place] [address] PCP - General Nurse Practitioner 11/06/22
--- OUTSIDE RECORDS SUMMARY | 2025-03-09 14:34 | XMS_ITS ---
Author Organization [facility] Address [address] [place] [address] Care Team Providers Care Lard Mixer Name Role Phone MICHELLE CLARKE Primary Care Provider Sid Manley Jr [phone] REASON FOR VISIT pathology Encounters Encounter Location Date Provider Diagnosis [facility] [address] [place] [address] 10/08/2023 Sid Bobo Jr Plan Of Treatment No Information Progress Notes * PADMINI REEVES ODOB:[birth year] (73 yo M)Acc No.[id number]:10/08/2023 Patient:?PADMINI REEVES :1950???Age:73 Y???Sex:Male Address:[address] [place] [address] * true * Date:? Generated for Holly nelson/Wili/eTransmitting on:?03/09/2025 02:34 PM EDT
== END 2025-03-09 14:39 | disposition home or self-care (01) ==
PROVIDERS: PCP Nurse Practitioner Family; Visit Provider Orthopaedic Surgery
DX: M19.012 Primary osteoarthritis, left shoulder (principal); M19.011 Primary osteoarthritis, right shoulder
CPT/HCPCS: 20610; 99213

== ENCOUNTER → 2025-03-09 14:08 | Outpatient (BNVA) | payer MEDICARE, SELFPAY | PROVIDERS: PCP Nurse Practitioner Family; Visit Provider Orthopaedic Surgery | DX: M19.012 Primary osteoarthritis, left shoulder (principal); M19.011 Primary osteoarthritis, right shoulder | CPT/HCPCS: 20610; 99212; J1010; J2003 ==

== ENCOUNTER 2025-03-18 12:54 | Outpatient (REF) | payer MEDICARE, SELFPAY ==
[2025-03-18 16:00] LABS: Blood Urea Nitrogen 24 mg/dL (9-16); Estimated Glomerular Filt Rate > 60
== END 2025-03-18 12:55 | disposition home or self-care (01) ==
LOC: HO.LAB 12:54
PROVIDERS: PCP Nurse Practitioner Family; Visit Provider Urology
DX: R31.0 Gross hematuria (principal)
CPT/HCPCS: 36415; 82565; 84520

== ENCOUNTER 2025-03-18 12:54 | Outpatient (AMB) | payer MEDICARE, SELFPAY ==
--- OUTSIDE RECORDS SUMMARY | 2025-03-18 13:08 | XMS_ITS ---
Author Organization [facility] Address [address] [place] [address] Care Team Providers Care Soft Sugar Operator Head Name Role Phone MICHELLE CLARKE Primary Care Provider Sid Manley Jr REASON FOR VISIT screening Encounters Encounter Location Date Provider Diagnosis [facility] [place] [address] [place] [phone] 09/26/2023 Sid Bobo Jr Encounter for screening colonoscopy Z12.11 and Colon polyps K63.5 Assessments Encounter Date Diagnosis (ICD Code) Assessment Notes Treatment Notes Treatment Clinical Notes Section Notes 09/26/2023 Encounter for screening colonoscopy (ICD-10 - Z12.11) 09/26/2023 Colon polyps (ICD-10 - K63.5) Plan Of Treatment No Information Progress Notes * LEANDRO PADMINI ODOB:[birth year] (74 yo M)Acc No.[id number]:09/26/2023 COLON WITH MAC Patient:?LEANDROPADMINI NICHOLS Provider:?Sid Bobo MD :1950???Age:73 Y???Sex:Male Landry e:09/26/2023 Address:[address] [place], [place] [phone] Pcp:MICHELLE CLARKE Subjective: * Chief Complaints: * ???1. Screening. * Medical History:? Objective: * Vitals:? Assessment: * Assessment: 1.?Encounter for screening c olonoscopy - Z12.11 (Primary)???2.?Colon polyps - K63.5??? Plan: * Treatment: * Procedure Codes:?00502 LESIO N REMOVAL COLONOSCOPY, 90504 COLONOSCOPY AND BIOPSY, Modifiers: 59 * * The named appointment provid er may or may not be the originator of this progress note, and it is not deemed complete until electronically signed by the appointment provider. Sign off status: Pending * Provider:?Sid Bobo MD Date:?1 11/27/2022 Generated for Holly nelson/Wili/Charlieitting on:?03/18/2025 01:08 PM EDT
--- NOTE | 2025-03-18 13:11 | MHC.OFFVIS ---
Intake Visit Reasons: cysto Intake Note: Patient is present for a cystoscopy Urology Medication:TAMSULOSIN Antibiotic Allergy:NONE Blood Thinner:ASPIRIN Lot #: [id number] Exp: 10-24-2027 Residential Specialist Required: No Allergies cat dander Allergy (Unknown, Verified 04/13/25 13:27) congestion HPI Comments Details: 03/18/25--Juan Carlos is a 74-year-old male who I am following for BPH and lower urinary tract symptoms he has been prescribed tamsulosin tamsulosin he is here for office cystoscopy. Cystoscopy findings: - bladder no suspicious lesions, CT Urogram pending. 01/17/25--follow-up BPH and lower urinary tract symptoms. Juan Carlos has been prescribed tamsulosin. He states that he cut back on his fluid intake and noticed blood in his urine on a couple of urine voids. He increased his fluid intake and has not seen any more blood in the urine. In review of his chart he did have a renal ultrasound March, there were bilateral simple cysts, no suspicious renal parenchymal lesions. Discussed plan for follow-up office cystoscopy. I reviewed PSA results are within normal limits. I will send urine for cytology. Check CT urogram Results: PSA--01/05/25--1.92 ng/mL 04/21/24--Juan Carlos is here for three-month follow-up. He was initially evaluated on 01/19/2024 for lower urinary tract symptoms, urinary frequency and nocturia as well as a weak stream. He was started on tamsulosin and sent for a renal ultrasound. He states he feels the medication is working well. He states he also was evaluated for sleep apnea and the treatment for the sleep apnea. I have discussed the renal ultrasound 03/29/2024, results, kidneys are within normal limits, bilateral simple cysts, Enlarged prostate, volume 75 mL.. The patient wants to know if he can stop the tamsulosin if he is doing better. I want him to continue the tamsulosin for 3 months. At that point he may stopped the medication, but he is advised that his symptoms may return once off of the tamsulosin. He is to call our office if he does stopped the medication. Otherwise follow-up in 9 months PSA at that time. 01/19/24--Juan Carlos is a 73-year-old male with history of coronary artery disease, diabetes, hypertension. The patient complains of increased urinary frequency at nighttime and a weak stream. He states he is being evaluated for sleep apnea. He denies irritative voiding symptoms. In review of the chart he had PSA 11/13/2023 that was normal 1.38. Urinalysis trace blood, protein present. Prostate Exam: Smooth mild to moderately enlarged no suspicious nodules palpated I have discussed trial of alpha-kathleen Flomax 0.4 mg at bedtime, will evaluate with ultrasound retroperitoneum. Follow-up in 3 months [facility] Medical History CAD (coronary artery disease) AAA (abdominal aortic aneurysm) GUTIERREZ (obstructive sleep apnea) Cardiomyopathy HTN (hypertension) Dyslipidemia Surgical History Hx of colonoscopy Hx of appendectomy Family History Father Asthma Bronchitis Mother Lung cancer Social History Household Members Other:: sister Housing: House Are you a primary chiropractic care to a significant other at home: No Do you presently have visiting nurse or other home services: No Alcohol intake: never Patient Tobacco Use Status: Never used Tobacco e-Cigarette/Vaping Use: Never Used Second Hand Smoke Exposure: No service: No Current occupational status: retired Cognitive needs: No Hearing needs: No Vision needs: No Office Procedures Cystoscopy Consent Discussed risk and benefit or proposed procedure with the patient. Information consent for procedure given to the patient. Discussed technical aspects, risks, benefits and alternatives in full. Addressed all of the patient's questions and concerns regarding the procedure. The patient demonstrated knowledge and understanding. They wish to proceed with this procedure. Preparation The patient was prepped in the usual manner. A sparmaker was present and in the room. Genitalia was prepped with betadine solution in a sterile manner. Lidocaine Jelly 2% was placed into the urethra and 16Fr flexible Olympus cystoscope was inserted into the meatus after adequate lubrication. Procedure Time out per protocol performed. The flexible cystoscope is passed transurethrally: The bladder was inspected in its entirety with utilization retroflexion displaying: Tumor(s): no suspicious bladder lesions visualized Trabeculation: Mild to Moderate Mucosal Erthema: NA Orifices: normal shape and position Urethra: normal Cystoscopy findings: prostatic urethra bilobar enlargement bulbous urethra WNL, no suspicious bladder lesions visualized [id number] DISPOSABLE SCOPE URO-G FLEXIBLE SCOPE Procedure code (CPT) selection complete Office Meds lidocaine HCl 2 % mucosal jelly in applicator Performing Provider: Roel Sweeney MD Performing Location[facility] [place] [facility] Administered by: Kayleigh Toure RN on 03/18/25 13:21 Dose Route Admin Location Dispensed Lot Number Expiration Date [facility] Glove Finisher 10 mL intra-urethral 20 mL nitrofurantoin monohydrate/macrocrystals 100 mg capsule Performing Provider: Roel Sweeney MD Performing Location: [facility] [place] [facility] Administered by: Kayleigh Toure RN on 03/18/25 13:21 Dose Route Admin Location Dispensed Lot Number Expiration Date [facility] Glove Finisher 100 mg PO 1 cap Results AMB Urinalysis, Automated UA Leukoctes 15 Yarely/uL Last Edit by Milton Baptiste, [facility] on 03/18/25 16:01 UA Nitrite Negative Last Edit by Miltontobias Baptiste, [facility] on 03/18/25 16:01 UA Urobilinogen 3.5 mg/dL Last Edit by Milton Baptiste, [facility] on 03/18/25 16:01 UA Protein 15 mg/dL Last Edit by Milton Baptiste, [facility] on 03/18/25 16:01 UA pH 5.5 Last Edit by Milton Baptiste, [facility] on 03/18/25 16:01 UA Blood 0 Ronald/uL Last Edit by Milton Baptiste, [facility] on 03/18/25 16:01 UA Specific Brandon 1.015 Last Edit by Milton Baptiste, [facility] on 03/18/25 16:01 UA Ketone Negative Last Edit by Milton Wuiel, [facility] on 03/18/25 16:01 UA Bilirubin 0 mg/dL Last Edit by Milton Baptiste, [facility] on 03/18/25 16:01 UA Glucose 0 mg/dL Last Edit by Milton Baptiste, [facility] on 03/18/25 16:01 Results Reviewed Results Reviewed: Laboratory Last Values Urine pH (Auto) 5.5 03/18/25 15:43 Specific Brandon (Auto) 1.015 03/18/25 15:43 Urine Protein (Auto) 15 mg/dL 03/18/25 15:43 Glucose (UA)(Auto) 0 mg/dL 03/18/25 15:43 Urine Ketones (Auto) Negative 03/18/25 15:43 Urine Blood (Auto) 0 Ronald/uL 03/18/25 15:43 Urine Nitrite (Auto) Negative 03/18/25 15:43 Urine Bilirubin (Auto) 0 mg/dL 03/18/25 15:43 Urine Urobilinogen (Auto) 3.5 mg/dL 03/18/25 15:43 Leukocyte Esterase (Auto) 15 Yarely/uL 03/18/25 15:43 Assessment & Plan Assessment & Plan (1) Gross hematuria: Code(s): R31.0 - Gross hematuria Category: Medical Plan Cystoscopy today- no suspicious bladder lesions CT pending Orders: Orders Blood Urea Nitrogen 03/18/25 R31.0 - Gross hematuria AMB Cystoscopy 03/18/25 R31.0 - Gross hematuria, N40.1 - Benign prostatic hyperplasia with lower urinary tract symptoms Creatinine 03/18/25 R31.0 - Gross hematuria AMB Urinalysis Automated 03/18/25 Z13.9 - Encounter for screening, unspecified Patient Instructions: The patient had an opportunity to ask questions regarding treatment plan. The patient expressed understanding and agreement with the above treatment plan. The patient is aware they should contact our office by phone for worsening of their current condition or the appearance of new symptoms. Compliance is encouraged with any medications and followup testing that is ordered. It is a privilege to be allowed the opportunity to participate in the urologic care of your patient. If you have any questions or concerns regarding treatment for the above conditions please do not hesitate to contact me. The office telephone contact is [phone]. This note is constructed in part using voice recognition software. While every effort has been made to ensure accuracy housemaid errors may have been included. Yours sincerely, Roel Sweeney MD Coding Level of Care Code Procedure Only Diagnoses Gross hematuria R31.0 CPT Codes Cystoscopy - CPT: 01383-Tihouugfkr ([id number])
== END 2025-03-18 13:50 | disposition home or self-care (01) ==
LOC: HO.HUSH 12:55
PROVIDERS: PCP Nurse Practitioner Family; Visit Provider Urology
DX: N40.1 Benign prostatic hyperplasia with lower urinary tract symptoms (principal); R31.0 Gross hematuria; Z13.9 Encounter for screening, unspecified
CPT/HCPCS: 52000

== ENCOUNTER 2025-04-13 13:22 | Outpatient (AMB) | payer MEDICARE, SELFPAY ==
--- NOTE | 2025-04-13 13:25 | MHC.PC.OV ---
Vital Signs 04/13/25 13:26 Height 5 ft 10 in Weight 203 lb BMI 29.1 BP 120/70 Blood Pressure Location Lt brachial Position Sitting Pulse 55 Pulse Source Pulse Oximeter Pulse Oximetry (%) 96 Intake Visit Reasons: 3m follow up Intake Note: pt is here for 3 month diabetic follow up, A1c done in office today Fall Internship Required: No Accompanied by: Self / Same As Patient Allergies cat dander Allergy (Unknown, Verified 04/13/25 13:27) congestion Medication List - Last Reconciled 04/13/25 by Hiram Carrington [facility]- amlodipine 10 mg PO DAILY aspirin 81 mg PO DAILY carvedilol 25 mg PO BID chlorthalidone 12.5 mg PO QAM metformin 1,000 mg (2 x 500 mg) PO BID rosuvastatin 10 mg PO BEDTIME sacubitril-valsartan 97-103 mg (Entresto) 1 tab PO BID turmeric mg PO zinc acetate PO Tobacco use date assessed: 01/05/25 Fall risk assessment: No Falls in past year Last assessed Fall Risk: 04/13/25 Dental Screening Dental Screen Date: 01/05/25 Did you have a dental visit in the last 12 months?: No Did you have a dental problem in the last 6 months where you did not have access to dental care?: No Was dental information given to patient?: Patient declined HPI 3m follow up HPI Details Chief Complaint The patient presents for a diabetes follow-up. History of Present Illness The patient is a 74-year-old male presenting with a follow-up for diabetes management. His current Hemoglobin A1c is 7.2%, which remains unchanged from the previous measurement. The patient admits to dietary non-compliance, stating he has been cheating on his diet. He is not interested in starting any new medications at this time and believes he can manage his condition through dietary adjustments. The patient regularly sees a cnc machine setter and his eye exams and microalbumin tests are up-to-date, indicating adherence to some aspects of his preventative care regimen. NOTE: pt reports his urologist was supposed to be prescribed tamsulosin, and a CT was supposed to be done. Will resubmit CT and send tamsulosin Social History Health Maintenance - Eye exam is up-to-date - Microalbumin test is up-to-date Review of Systems denies any neuropathy, n/v, fevers,chills, cp, sob, dizziness Physical Exam General: Cooperative, healthy appearing, comfortable, no acute distress and well developed Orientation: Patient oriented x3 Limitations: No limitations Head: Normal to inspection Ears: Hearing grossly normal bilaterally Nose: Normal external nose present Face and sinus: Normal facial exam Eyes: Appearance normal, both eyes and all related structures Neck: Normal visual inspection and Yes full ROM Respiratory: Normal respiratory effort and able to speak in complete sentences. Clear to auscultation bilaterally Cardiovascular: Regular rate and rhythm. Normal S1 and S2 GI: Normal to inspection. Soft to palpation and nontender Neuro: Positive sensation use of monofilament to bilaterally feet were intact bilaterally Extremities: Normal to inspection Results - Labs: Hemoglobin A1c is 7.2% Plan The patient will continue with dietary management to control his diabetes, as he is not interested in starting new medications at this time. Regular follow-ups with his cnc machine setter will continue, and his preventative care measures, including eye exams and microalbumin tests, are up-to-date. Lab orders have been entered to monitor his condition further. Patient was informed and verbally consented to the use of an ambient scribe for clinic note documentation during this visit. Discussion Notes I discussed with the patient the importance of dietary management in controlling his diabetes and the potential need for medication if dietary measures are insufficient. We reviewed his current preventative care status, including his up-to-date eye exams and microalbumin tests. I emphasized the importance of regular follow-ups with his cnc machine setter and the need for ongoing monitoring through lab tests. Patient Instructions - Continue with dietary management to control blood sugar levels. - Attend regular follow-ups with your cnc machine setter. - Ensure eye exams and microalbumin tests remain up-to-date. - Follow up with lab tests as ordered. [facility] Medical History CAD (coronary artery disease) AAA (abdominal aortic aneurysm) GUTIERREZ (obstructive sleep apnea) Cardiomyopathy HTN (hypertension) Dyslipidemia Surgical History Hx of colonoscopy Hx of appendectomy Family History Father Asthma Bronchitis Mother Lung cancer Social History Household Members Other:: sister Housing: House Are you a primary health care specialist to a significant other at home: No Do you presently have visiting nurse or other home services: No Alcohol intake: never Patient Tobacco Use Status: Never used Tobacco e-Cigarette/Vaping Use: Never Used Second Hand Smoke Exposure: No service: No Current occupational status: retired Cognitive needs: No Hearing needs: No Vision needs: No Questionnaire Thrive Questionnaire Date Thrive assessed: 04/13/25 I am a: Patient What is your living situation today?: I have a steady place to live Within the past 12 months, did the food you bought not last and you didn't have the money to get more?: Never true Within the past 12 months, did you worry whether your food would run out before you got money to buy more?: Never true Do you have trouble paying for medicines?: No Do you have trouble getting transportation to medical appointments?: No Do you have trouble paying your heating and electricity bill?: No Do you have trouble taking care of your child, family member or friend?: No Do you have trouble with day-to-day activities such as bathing, preparing meals, shopping, managing finances, etc.?: No Are you currently unemployed and looking for a job?: No Are you interested in more education?: No Please select the resources that you would like help with: None Currently or been in a relationship where the following occur: No concerns reported THRIVE Score: 0 MARCIAL-7 AMB Questionnaire MARCIAL-7 Date MARCIAL - 7 assessed: 01/05/25 Source: Developed by Drs. Juan Carlos Hale, Drea Mckinney, Krish Menjivar and colleagues, with an educational richelle from [employer]. Physical exam (Primary Care) Vital Signs: Last Vital Signs Pulse 55 04/13/25 13:26 BP 120/70 04/13/25 13:26 Pulse Ox 96 04/13/25 13:26 BMI result Body Mass Index 29.1 Tobacco/Smoking Status: Tobacco use Status Tobacco use date assessed 01/05/25 04/13/25 13:25 Patient Tobacco Use Status Never used Tobacco 04/13/25 13:25 e-Cigarette/Vaping Use Never Used 04/13/25 13:25 Thrive Assessment: Date of Thrive Assessment Date Thrive assessed 04/13/25 04/13/25 13:34 Currently or been in a relationship where the following occur: No concerns reported Results AMB Hemoglobin A1c AMB Hemoglobin A1c 7.2 % Last Edit by Nav Howard CMA on 04/13/25 14:00 Results Reviewed Results Reviewed: Laboratory Last Values Hgb A1c (Clinic) 7.2 % (4.0-6.0) H 04/13/25 13:59 Coding Level of Care Code Est Pt Level 3 (40275) Diagnoses Diabetes E11.9 B12 deficiency E53.8 Assessment & Plan Assessment & Plan (1) Diabetes: Code(s): E11.9 - Type 2 diabetes mellitus without complications Category: Medical (2) B12 deficiency: Code(s): E53.8 - Deficiency of other specified B group vitamins Category: Medical Plan . Orders: Orders TSH reflex Free T4 Today E11.9 - Type 2 diabetes mellitus without complications UA CC w/rflx Micro + Cult Today E11.9 - Type 2 diabetes mellitus without complications Vitamin B12 and Folate Today E53.8 - Deficiency of other specified B group vitamins Complete Blood Count Auto Diff Today E11.9 - Type 2 diabetes mellitus without complications Comprehensive [place]. Panel Fast Today E11.9 - Type 2 diabetes mellitus without complications Lipid Panel Today E11.9 - Type 2 diabetes mellitus without complications CT urogram 01/17/25 R31.0 - Gross hematuria AMB Hemoglobin A1c Today Z13.9 - Encounter for screening, unspecified Medications: New tamsulosin 0.4 mg PO BEDTIME 90 caps 0RF
[2025-04-13 13:26] VITALS: BP 120/70; PULSE 55; O2SAT 96; BMI 29.1
--- OUTSIDE RECORDS SUMMARY | 2025-04-13 15:46 | XMS_ITS | Patient Health Record ---
Author Organization [facility] Address [address] [place] [address] Care Team Providers Care Spray Gun Sizer Name Role Phone MICHELLE CLARKE Primary Care [...] Problem Status W/U Status Risk Notes Problem [id number] Colon cancer screening (Z12.11) Active confirmed Problem 74063159 Encounter for other preprocedural examination (Z01.818) Active confirmed Problem 762341193 Long-term use of aspirin therapy (Z79.82) Active confirmed Problem [id number] custodial curren t use of oral hypoglycemic drug (Z79.84) Active confirmed Plan Of Treatment Future Test Test Name Order Date COLONOSCOPY 09/16/2018 COLONOSCOPY 03/13/2023 Insurance Providers Payer Name Payer Address Payer Phone Subscriber Number Group Number Insured Name Patient Relationship to Insured Coverage Start Date Coverage End Date [facility] BCBS PROFESSIONAL CLAIMS [address] [place] [address] [id number] 5 PADMINI MALCOLM Self - patient is the insured Medical (General) History Medical History History ICD Code Hyperlipidemia diabetes mellitus hypertension Covid 19 infection AAA Elevated BMI Osteoarthritis CKD 2 Surgical History Surgery Date(Month/Year) appendectomy
== END 2025-04-13 14:11 | disposition home or self-care (01) ==
LOC: HO.HMCC 13:23
PROVIDERS: PCP Nurse Practitioner Family; Visit Provider Nurse Practitioner Family
DX: E11.9 Type 2 diabetes mellitus without complications (principal); E53.8 Deficiency of other specified B group vitamins; Z13.9 Encounter for screening, unspecified

== ENCOUNTER → 2025-04-13 13:22 | Outpatient (BNVA) | payer MEDICARE, SELFPAY | PROVIDERS: PCP Nurse Practitioner Family; Visit Provider Nurse Practitioner Family | DX: E11.9 Type 2 diabetes mellitus without complications (principal); E53.8 Deficiency of other specified B group vitamins; R31.0 Gross hematuria | CPT/HCPCS: 83036; 99212 ==

== ENCOUNTER 2025-06-08 13:41 | Outpatient (REF) | payer MEDICARE, SELFPAY ==
--- NOTE | ~2025-06-08 | CT_ITS ---
EXAMINATION: CT ABDOMEN AND PELVIS WITHOUT AND WITH CONTRAST CLINICAL INFORMATION: Gross hematuria. R 31.0 COMPARISON: None available. TECHNIQUE: Noncontrast CT of the abdomen and pelvis is performed followed by split bolus contrast-enhanced images using 85 mL Omnipaque 350 contrast. Postcontrast imaging is performed during the combined nephrogram and excretion phase. Sagittal and coronal reformatted images were obtained on the technologist's workstation for both the precontrast and postcontrast phases. This CT examination was performed using dose optimization techniques as appropriate, variously including the following: *Automated exposure control *Adjustment of mA and/or kV according to patient size (this includes techniques or standardized protocols for targeted exams where dose is matched to indication/reason for exam; i.e. extremities or head) *Use of iterative reconstruction technique. DLP: 1268 mGy centimeter. FINDINGS: LUNG BASES: Excluded from the [id number]. LIVER, GALLBLADDER, AND BILIARY TREE: Liver measures 15 cm. There are multifocal, nonenhancing hypodense lesions, the largest in the dome of the right hepatic lobe measures 3.5 cm. There is a questionable 1.2 cm hemangioma in the posterior right hepatic lobe. Main portal vein is patent. Gallbladder is fluid-filled without pericholecystic fluid collection or gallbladder wall thickening. No distention. No intrahepatic or extrahepatic biliary ductal dilatation. PANCREAS: No focal lesion. Reduced volume of the pancreatic parenchyma. No peripancreatic fluid collection. No main pancreatic ductal dilatation. SPLEEN: 11 cm. No focal mass. ADRENAL GLANDS: Soft tissue fullness left adrenal gland. No gross nodular lesions. KIDNEYS AND URETERS: Right kidney: No hydronephrosis. No nephrolithiasis. Multifocal nonenhancing fluid density lesions at the corticomedullary junction, the largest measures 0.9 cm. Normal enhancement pattern in the renal cortex and normal urinary excretion into the collecting system. Left kidney: No hydronephrosis. Probable 1 mm nonobstructing calculus in the lower pole. Multifocal less than 1 cm fluid density lesions at the corticomedullary junction and exophytic location of the kidney. Normal urinary excretion into the collecting system. BLADDER: Fluid-filled without wall thickening. Extrinsic deformity of the urinary bladder floor secondary to extrinsic compression deformity by the prostate gland. GASTROINTESTINAL TRACT: Numerous diverticula in the left hemicolon. Gas and fluid-filled mildly prominent small bowel loops. No intestinal obstruction pattern. No intestinal wall thickening. No pneumatosis intestinalis. No gross ascites. No fluid collections in the peritoneal cavity. No pneumoperitoneum. I do not see the appendix. The cecum appears in horizontal position/bascule. ABDOMINAL WALL: Fat-containing left midline umbilical/periumbilical hernia with trace of fluid. LYMPH NODES: Nonspecific mildly prominent lymph nodes in the mesentery or retroperitoneum. VASCULAR: Mixed plaques with irregularity throughout the abdominal aorta wall and iliac arteries the femoral arteries the mesenteric arteries the renal arteries and the splenic artery. Mixed plaques in the descending thoracic aorta and the included coronary arteries. No dissection or aneurysm in the abdominal aorta. PELVIC VISCERA: There is an 9 cm heterogeneously enhancing partially calcified prostate gland protruding upon the urinary bladder floor. OSSEUS STRUCTURES: Multilevel thoracolumbar spondylosis, pronounced at L3-4 and L5-S1 levels. Pseudoarthrosis in the posterior spinous processes of L3-4 and L4-5 levels. No acute fracture or gross listhesis. Mild degenerative changes in the sacroiliac joints and hips. CT/CT urogram IMPRESSION: Benign prostate hyperplasia versus malignancy protruding upon the urinary bladder floor. Probable 1 mm nonobstructing nephrolithiasis, left kidney. No hydronephrosis. Bilateral renal cysts. Atherosclerosis disease. Diverticular disease, left hemicolon. Fat-containing and fluid-filled left midline periumbilical hernia. Multifocal low-density hepatic lesions. Statistically may represent cyst versus hamartoma. Electronically signed by: Jian De La Paz MD 06/08/2025 03:15 PM EDT
--- OUTSIDE RECORDS SUMMARY | 2025-06-08 14:38 | XMS_ITS | Clinical Summary ---
Author Organization [facility] Address [address] [place] [address] Care Team Providers Care Airframe And Powerplant Technician Name Role Phone Hiram Carrington NP Primary Care Provider [phone] Allergies No known active allergies Medications omega-3 [...] Active Problems Problem Noted Date Diagnosed Date Chronic kidney disease, stage 2 (mild) 5 Stage 3a chronic kidney disease 04/05/2024 Chronic kidney disease, stage 2 (mild) 3 Abdominal aortic aneurysm 11/12/2022 Diabetes mellitus 11/12/2022 [...] Diagnosed Date Resolved Date Microalbuminuria 11/12/2022 03/31/2023 Encounters Date Type Department Care Team Description 04/25/2025 1:00 PM EDT Office Visit [facility] [address] [place] [address] Mil Mcknight MD Chronic kidney disease, stage 2 (mild) (Primary Dx); Renal disorder due to type 2 diabetes mellitus <Diabetic nephropathy> (HCC) from Last 3 Months Immunizations Immunization Administration Dates Next Due Influenza, [...] Sign Reading Time Taken Comments Blood Pressure 124/60 04/25/2025 1:24 PM EDT Pulse 56 04/25/2025 1:24 PM EDT Temperature - - Respiratory Rate - - Oxygen Saturation 96% 04/25/2025 1:24 PM EDT Inhaled Oxygen Concentration - - Weight 89.8 kg (198 lb) 04/25/2025 1:24 PM EDT Height - - Body Mass Index - - Plan of Treatment Upcoming Encounters Date Type Department Care Team (Late st Contact Info) Description 04/24/2026 1:00 PM EDT Office Visit [facility] [address] [place] [address] Mil Mcknight MD [address] [facility] [address] [place] [address] Health Maintenance Due Date Last Done Comments Pneumococcal Vaccine: 50+ Years (1 of 2 - PCV) 1968 Colorectal Cancer Screening: Annual FOBT 1998 Colorectal Cancer Screening: Colonoscopy 1998 Colorectal Cancer Screening: Sigmoidoscopy 1998 Diabetes: Hemoglobin A1C 11/20/2020 Diabetes: Ophthalmology Exam 11/20/2020 Diabetes: Pedal Pulse Checked 11/20/2020 Diabetes: Sensory Foot Exam 11/20/2020 Diabetes: Visual Foot Exam 11/20/2020 Influenza Vaccine (#1) 2025 2, 09/25/2021, 07/18/2020 Hepatitis B Vaccine Aged Out No longe r eligible based on patient's age to complete this topic Insurance [facility] Care Teams Airframe And Powerplant Technician Relationship Specialty Start Date End Date Hiram Carrington NP 1962 [place], [place] PCP - General Nurse Practitioner 11/06/22
--- OUTSIDE RECORDS SUMMARY | 2025-06-08 14:38 | XMS_ITS | Patient Health Record ---
Author Organization [facility] Address [address] [place] [address] Care Team Providers Care Transportation Superintendent Name Role Phone MICHELLE CLARKE Primary Care [...] Problem Status W/U Status Risk Notes Problem [id number] Colon cancer screening (Z12.11) Active confirmed Problem 77377779 Encounter for other preprocedural examination (Z01.818) Active confirmed Problem 801694689 Long-term use of aspirin therapy (Z79.82) Active confirmed Problem [id number] detention curren t use of oral hypoglycemic drug (Z79.84) Active confirmed Plan Of Treatment Future Test Test Name Order Date COLONOSCOPY 09/16/2018 COLONOSCOPY 03/13/2023 Insurance Providers Payer Name Payer Address Payer Phone Subscriber Number Group Number Insured Name Patient Relationship to Insured Coverage Start Date Coverage End Date [facility] BCBS PROFESSIONAL CLAIMS [address] [place] [address] [id number] 5 PADMINI MALCOLM Self - patient is the insured Medical (General) History Medical History History ICD Code Hyperlipidemia diabetes mellitus hypertension Covid 19 infection AAA Elevated BMI Osteoarthritis CKD 2 Surgical History Surgery Date(Month/Year) appendectomy
[2025-06-09 08:55] LABS: Creatinine POC 1.2 mg/dL (0.5-1.4); GFR POC > 60
== END 2025-06-08 13:42 | disposition home or self-care (01) ==
LOC: HO.CT 13:41
PROVIDERS: PCP Nurse Practitioner Family; Visit Provider Urology
DX: R31.0 Gross hematuria (principal)
CPT/HCPCS: 74178; 82565

== ENCOUNTER → 2025-06-08 13:43 | Outpatient (BNV) | payer MEDICARE, SELFPAY | PROVIDERS: PCP Nurse Practitioner Family; Visit Provider Radiology Diagnostic Radiology | DX: R31.0 Gross hematuria (principal) | CPT/HCPCS: 74178 ==

== ENCOUNTER 2025-06-15 13:59 | Outpatient (AMB) | payer MEDICARE, SELFPAY ==
--- NOTE | 2025-06-15 14:14 | MHC.OFFVIS ---
Vital Signs 06/15/25 14:17 Height 5 ft 10 in Weight 210 lb BMI 30.1 Intake Visit Reasons: Inj-B/L shoulder pain -last inj 03/09/25 Intake Note: Juan Carlos is a 74 year old male who presents today for an injection in his bilateral shoulder pain, last injection 03/09/25. Patient states that the last injection did help but wore off. He continues with his home exercise program. He has taken Tylenol and anti-inflammatory medicines which gave him minimal relief. Allergies cat dander Allergy (Unknown, Verified 06/15/25 14:17) congestion Medication List - Last Reconciled 06/16/25 by Silverio Newby MD amlodipine 10 mg PO DAILY aspirin 81 mg PO DAILY carvedilol 25 mg PO BID chlorthalidone 12.5 mg PO QAM metformin 1,000 mg (2 x 500 mg) PO BID rosuvastatin 20 mg PO BEDTIME sacubitril-valsartan 97-103 mg (Entresto) 1 tab PO BID tamsulosin 0.4 mg PO BEDTIME turmeric mg PO zinc acetate PO PFSH Medical History (Updated 06/08/25 @ 16:41 [facility] Kidney stones Renal cysts, acquired, bilateral Periumbilical hernia CAD (coronary artery disease) AAA (abdominal aortic aneurysm) GUTIERREZ (obstructive sleep apnea) Cardiomyopathy HTN (hypertension) Dyslipidemia Surgical History Hx of colonoscopy Hx of appendectomy Family History Father Asthma Bronchitis Mother Lung cancer Social History Household Members Other:: sister Housing: House Are you a primary post anesthesia care unit nurse to a significant other at home: No Do you presently have visiting nurse or other home services: No Alcohol intake: never Patient Tobacco Use Status: Never used Tobacco e-Cigarette/Vaping Use: Never Used Second Hand Smoke Exposure: No service: No Current occupational status: retired Cognitive needs: No Hearing needs: No Vision needs: No Physical Exam Vital Signs: BMI result Body Mass Index 30.1 Const Other: Well-nourished well-developed very friendly male awake alert and oriented x3 in no acute distress Extrem Other: Bilateral shoulder examination shows forward flexion to 120 degrees, external rotation at 30 degrees, mild crepitus with range of motion, pain with range of motion, no instability Office Procedures AMB Joint Injection/Aspiration Joint Injection/Aspiration Primary Site: left shoulder Prep: site was prepped using aseptic technique Injected: 40 mg of, DepoMedrol and 1% plain lidocaine Procedure: The patient tolerated the procedure well Coding 42824 - Large joint Procedure code (CPT) selection complete AMB Joint Injection/Aspiration Joint Injection/Aspiration Primary Site: right shoulder Prep: site was prepped using aseptic technique Injected: 40 mg of, DepoMedrol and 1% plain lidocaine Procedure: The patient tolerated the procedure well Coding 12001 - Large joint Procedure code (CPT) selection complete Assessment & Plan Assessment & Plan (1) Arthritis of left shoulder region: Code(s): M19.012 - Primary osteoarthritis, left shoulder Category: Medical (2) Arthritis of right shoulder region: Code(s): M19.011 - Primary osteoarthritis, right shoulder Category: Medical Plan Mr. Steele presents with bilateral shoulder pains due to glenohumeral joint arthritis. The risks and benefits of bilateral shoulder cortisone injections were discussed at length with the patient. The patient wished to proceed. She tolerated the injections well. He will continue with his home stretching program. He will contact me prior to his follow-up appointment in 3 months should any questions or concerns arise. Feel free to call me at any time should questions regarding his orthopedic management arise. I spent 22 minutes in reviewing the patient's records and imaging studies, seeing the patient and documenting in the medical record. Orders: Orders AMB Joint Injection/Aspiration 06/15/25 M19.012 - Primary osteoarthritis, left shoulder AMB Joint Injection/Aspiration 06/15/25 M19.011 - Primary osteoarthritis, right shoulder Coding Level of Care Code Est Pt Level 3 (23262) Complex EM visit Add On G2211 Diagnoses Arthritis of left shoulder region M19.012 Arthritis of right shoulder region M19.011 CPT Codes Coding - 06750 Large joint: 93717 - Large joint ([id number]) Coding - 21756 Large joint: 02896 - Large joint ([id number])
[2025-06-15 14:17] VITALS: BMI 30.1
--- OUTSIDE RECORDS SUMMARY | 2025-06-15 14:55 | XMS_ITS | Patient Health Record ---
Author Organization [facility] Address [address] [place] [address] Care Team Providers Care Territory Sales Representative Name Role Phone MICHELLE CLARKE Primary Care Provider Sid Manley Jr [phone] Allergies No Known Allergies Reason For Referral [...] Problem Status W/U Status Risk Notes Problem 944940016 Colon cancer screening (Z12.11) Active confirmed Problem 92237578 Encounter for other preprocedural examination (Z01.818) Active confirmed Problem 612409869 Long-term use of aspirin therapy (Z79.82) Active confirmed Problem [id number] senior care curren t use of oral hypoglycemic drug (Z79.84) Active confirmed Plan Of Treatment Future Test Test Name Order Date COLONOSCOPY 09/16/2018 COLONOSCOPY 03/13/2023 Insurance Providers Payer Name Payer Address Payer Phone Subscriber Number Group Number Insured Name Patient Relationship to Insured Coverage Start Date Coverage End Date [facility] BCBS PROFESSIONAL CLAIMS [address] [place] [address] [id number] PADMINI MALCOLM Self - patient is the insured Medical (General) History Medical History History ICD Code Hyperlipidemia diabetes mellitus hypertension Covid 19 infection AAA Elevated BMI Osteoarthritis CKD 2 Surgical History Surgery Date(Month/Year) appendectomy
--- OUTSIDE RECORDS SUMMARY | 2025-06-15 14:55 | XMS_ITS | Clinical Summary ---
Author Organization [facility] Facility Address [address] [place] [address] Care Team Providers Care Planer Setup Operator Name Role Phone Hiram Carrington NP Primary Care Provider [phone] Allergies No known active allergies Medications omega-3 [...] Visit [facility] [address] [place], [place] [address] Mil Mckngiht MD Chronic kidney disease, stage 2 (mild) [...] Visit [facility] [address] [place] [address] Mil Mcknight MD [address] [facility] [address] [place] [address] Health Maintenance Due Date Last [...] age to complete this topic Insurance [facility] Care Teams Planer Setup Operator Relationship Specialty Start Date End Date Hiram Carrington NP 1962 [place], [place] PCP - General Nurse Practitioner 11/06/22
== END 2025-06-15 14:55 | disposition home or self-care (01) ==
LOC: HO.HOS 14:00
PROVIDERS: PCP Nurse Practitioner Family; Visit Provider Orthopaedic Surgery
DX: M19.012 Primary osteoarthritis, left shoulder (principal); M19.011 Primary osteoarthritis, right shoulder
CPT/HCPCS: 20610

== ENCOUNTER → 2025-06-15 13:59 | Outpatient (BNVA) | payer MEDICARE, SELFPAY | PROVIDERS: PCP Nurse Practitioner Family; Visit Provider Orthopaedic Surgery | DX: M19.011 Primary osteoarthritis, right shoulder (principal); M19.012 Primary osteoarthritis, left shoulder | CPT/HCPCS: 20610; J1010; J2003 ==

== ENCOUNTER 2025-06-30 12:51 | Outpatient (AMB) | payer MEDICARE, SELFPAY ==
--- NOTE | 2025-06-30 13:23 | MHC.OFFVIS ---
Intake Visit Reasons: follow up/CT/labs Intake Note: Patient is present for a follow up/CT/labs 03/18 BUN:24/Creatinine:1.12 06/08 CT Urogram Urology Medication:TAMSULOSIN Antibiotic Allergy:NONE Blood Thinner:ASPIRIN [employer] Teacher Required: No Allergies cat dander Allergy (Unknown, Verified 06/30/25 13:24) congestion Medication List - Last Reconciled 06/30/25 by Roel Sweeney MD amlodipine 10 mg PO DAILY aspirin 81 mg PO DAILY carvedilol 25 mg PO BID chlorthalidone 12.5 mg PO QAM finasteride (Proscar) 5 mg PO DAILY metformin 1,000 mg (2 x 500 mg) PO BID rosuvastatin 20 mg PO BEDTIME sacubitril-valsartan 97-103 mg (Entresto) 1 tab PO BID tamsulosin 0.4 mg PO BEDTIME turmeric mg PO zinc acetate PO HPI Comments Details: 06/30/25--Juan Carlos is a 74-year-old male who I am following for BPH and lower urinary tract symptoms he has been prescribed tamsulosin. I have reviewed CT urogram results- left kidney possible 1 mm, punctate kidney stone negative hydronephrosis or suspicious renal masses prostate enlarged with median lobe abutting bladder neck. Plan continue tamsulosin and start Proscar 5 mg daily. Continue to monitor PVR and PSA. Follow-up in 9 months 03/18/25--Juan Carlos is a 74-year-old male who I am following for BPH and lower urinary tract symptoms he has been prescribed tamsulosin he is here for office cystoscopy. Cystoscopy findings: - bladder no suspicious lesions, CT Urogram pending. 01/17/25--follow-up BPH and lower urinary tract symptoms. Juan Carlos has been prescribed tamsulosin. He states that he cut back on his fluid intake and noticed blood in his urine on a couple of urine voids. He increased his fluid intake and has not seen any more blood in the urine. In review of his chart he did have a renal ultrasound March, there were bilateral simple cysts, no suspicious renal parenchymal lesions. Discussed plan for follow-up office cystoscopy. I reviewed PSA results are within normal limits. I will send urine for cytology. Check CT urogram Results: PSA--01/05/25--1.92 ng/mL 04/21/24--Juan Carlos is here for three-month follow-up. He was initially evaluated on 01/19/2024 for lower urinary tract symptoms, urinary frequency and nocturia as well as a weak stream. He was started on tamsulosin and sent for a renal ultrasound. He states he feels the medication is working well. He states he also was evaluated for sleep apnea and the treatment for the sleep apnea. I have discussed the renal ultrasound 03/29/2024, results, kidneys are within normal limits, bilateral simple cysts, Enlarged prostate, volume 75 mL.. The patient wants to know if he can stop the tamsulosin if he is doing better. I want him to continue the tamsulosin for 3 months. At that point he may stopped the medication, but he is advised that his symptoms may return once off of the tamsulosin. He is to call our office if he does stopped the medication. Otherwise follow-up in 9 months PSA at that time. 01/19/24--Juan Carlos is a 73-year-old male with history of coronary artery disease, diabetes, hypertension. The patient complains of increased urinary frequency at nighttime and a weak stream. He states he is being evaluated for sleep apnea. He denies irritative voiding symptoms. In review of the chart he had PSA 11/13/2023 that was normal 1.38. Urinalysis trace blood, protein present. Prostate Exam: Smooth mild to moderately enlarged no suspicious nodules palpated I have discussed trial of alpha-kathleen Flomax 0.4 mg at bedtime, will evaluate with ultrasound retroperitoneum. Follow-up in 3 months PENDING SALE TO [facility] Medical History Kidney stones Renal cysts, acquired, bilateral Periumbilical hernia CAD (coronary artery disease) AAA (abdominal aortic aneurysm) GUTIERREZ (obstructive sleep apnea) Cardiomyopathy HTN (hypertension) Dyslipidemia Surgical History Hx of colonoscopy Hx of appendectomy Family History Father Asthma Bronchitis Mother Lung cancer Social History Household Members Other:: sister Housing: House Are you a primary animal care giver to a significant other at home: No Do you presently have visiting nurse or other home services: No Alcohol intake: never Patient Tobacco Use Status: Never used Tobacco e-Cigarette/Vaping Use: Never Used Second Hand Smoke Exposure: No service: No Current occupational status: retired Cognitive needs: No Hearing needs: No Vision needs: No Review of Systems Const All systems reviewed & are unremarkable except as noted in HPI and below Reports no additional complaints Eyes Reports no additional complaints ENT Reports no additional complaints Card Reports no additional complaints Resp Reports no additional complaints GI Reports no additional complaints Reports as per HPI Musc Reports no additional complaints Skin/Breast Reports system reviewed and no additional complaints, except as documented Neuro Reports no additional complaints Psych Reports no additional complaints Endo Reports no additional complaints John/Lymph Reports no additional complaints Aller/Immun Reports no additional complaints Results Reviewed Results Reviewed: Date of Service: 06/08/25 EXAMINATION: CT ABDOMEN AND PELVIS WITHOUT AND WITH CONTRAST CLINICAL INFORMATION: Gross hematuria. R 31.0 COMPARISON: None available. TECHNIQUE: Noncontrast CT of the abdomen and pelvis is performed followed by split bolus contrast-enhanced images using 85 mL Omnipaque 350 contrast. Postcontrast imaging is performed during the combined nephrogram and excretion phase. Sagittal and coronal reformatted images were obtained on the technologist's workstation for both the precontrast and postcontrast phases. This CT examination was performed using dose optimization techniques as appropriate, variously including the following: *Automated exposure control *Adjustment of mA and/or kV according to patient size (this includes techniques or standardized protocols for targeted exams where dose is matched to indication/reason for exam; i.e. extremities or head) *Use of iterative reconstruction technique. DLP: 1268 mGy centimeter. FINDINGS: LUNG BASES: Excluded from the rgppe-my-hpgm. LIVER, GALLBLADDER, AND BILIARY TREE: Liver measures 15 cm. There are multifocal, nonenhancing hypodense lesions, the largest in the dome of the right hepatic lobe measures 3.5 cm. There is a questionable 1.2 cm hemangioma in the posterior right hepatic lobe. Main portal vein is patent. Gallbladder is fluid-filled without pericholecystic fluid collection or gallbladder wall thickening. No distention. No intrahepatic or extrahepatic biliary ductal dilatation. PANCREAS: No focal lesion. Reduced volume of the pancreatic parenchyma. No peripancreatic fluid collection. No main pancreatic ductal dilatation. SPLEEN: 11 cm. No focal mass. ADRENAL GLANDS: Soft tissue fullness left adrenal gland. No gross nodular lesions. KIDNEYS AND URETERS: Right kidney: No hydronephrosis. No nephrolithiasis. Multifocal nonenhancing fluid density lesions at the corticomedullary junction, the largest measures 0.9 cm. Normal enhancement pattern in the renal cortex and normal urinary excretion into the collecting system. Left kidney: No hydronephrosis. Probable 1 mm nonobstructing calculus in the lower pole. Multifocal less than 1 cm fluid density lesions at the corticomedullary junction and exophytic location of the kidney. Normal urinary excretion into the collecting system. BLADDER: Fluid-filled without wall thickening. Extrinsic deformity of the urinary bladder floor secondary to extrinsic compression deformity by the prostate gland. GASTROINTESTINAL TRACT: Numerous diverticula in the left hemicolon. Gas and fluid-filled mildly prominent small bowel loops. No intestinal obstruction pattern. No intestinal wall thickening. No pneumatosis intestinalis. No gross ascites. No fluid collections in the peritoneal cavity. No pneumoperitoneum. I do not see the appendix. The cecum appears in horizontal position/bascule. ABDOMINAL WALL: Fat-containing left midline umbilical/periumbilical hernia with trace of fluid. LYMPH NODES: Nonspecific mildly prominent lymph nodes in the mesentery or retroperitoneum. VASCULAR: Mixed plaques with irregularity throughout the abdominal aorta wall and iliac arteries the femoral arteries the mesenteric arteries the renal arteries and the splenic artery. Mixed plaques in the descending thoracic aorta and the included coronary arteries. No dissection or aneurysm in the abdominal aorta. PELVIC VISCERA: There is an 9 cm heterogeneously enhancing partially calcified prostate gland protruding upon the urinary bladder floor. OSSEUS STRUCTURES: Multilevel thoracolumbar spondylosis, pronounced at L3-4 and L5-S1 levels. Pseudoarthrosis in the posterior spinous processes of L3-4 and L4-5 levels. No acute fracture or gross listhesis. Mild degenerative changes in the sacroiliac joints and hips. IMPRESSION: Benign prostate hyperplasia versus malignancy protruding upon the urinary bladder floor. Probable 1 mm nonobstructing nephrolithiasis, left kidney. No hydronephrosis. Bilateral renal cysts. Atherosclerosis disease. Diverticular disease, left hemicolon. Fat-containing and fluid-filled left midline periumbilical hernia. Multifocal low-density hepatic lesions. Statistically may represent cyst versus hamartoma. Date of Service: 03/29/24 EXAMINATION: US RETROPERITONEAL COMPLETE (RENAL) CLINICAL INFORMATION: Frequency of micturition. COMPARISON: Renal ultrasound 04/19/2008. TECHNIQUE: Real-time imaging of the kidneys and bladder. FINDINGS: RIGHT KIDNEY: 9.6 x 5.6 x 5.3 cm (SAG x AP x TRV). The kidney is normal in size, contour, and echogenicity. Renal cortical thickness is normal. No renal calculi or hydronephrosis. 1.3 cm simple cyst in the mid kidney. No imaging follow-up is recommended. LEFT KIDNEY: 13.0 x 5.4 x 5.0 cm (SAG x AP x TRV). The kidney is normal in size, contour, and echogenicity. Renal cortical thickness is normal. No renal calculi or hydronephrosis. There are multiple simple cysts, largest measuring 1.2 cm the mid kidney. No imaging follow-up is recommended. BLADDER: Well distended and normal. Bilateral ureteral jets are demonstrated. Prevoid bladder volume is 211 mL. Postvoid bladder volume is 82 mL. Enlarged prostate, volume 75 mL. IMPRESSION: Enlarged prostate. No hydronephrosis. Post void residual of 82 mL. Assessment & Plan Assessment & Plan (1) BPH loc w urin obs/LUTS: Code(s): N40.1 - Benign prostatic hyperplasia with lower urinary tract symptoms Category: Medical Plan Plan continue tamsulosin and start Proscar 5 mg daily. Continue to monitor PVR and PSA. Follow-up in 9 months Orders: Orders PSA,Total (Free>4and<10) 8 Months N40.1 - Benign prostatic hyperplasia with lower urinary tract symptoms Medications: New finasteride (Proscar) 5 mg PO DAILY 90 tabs 3RF Refilled tamsulosin 0.4 mg PO BEDTIME 90 caps 3RF Patient Instructions: The patient had an opportunity to ask questions regarding treatment plan. The patient expressed understanding and agreement with the above treatment plan. The patient is aware they should contact our office by phone for worsening of their current condition or the appearance of new symptoms. Compliance is encouraged with any medications and followup testing that is ordered. It is a privilege to be allowed the opportunity to participate in the urologic care of your patient. If you have any questions or concerns regarding treatment for the above conditions please do not hesitate to contact me. The office telephone contact is [phone]. This note is constructed in part using voice recognition software. While every effort has been made to ensure accuracy body work auto trimmer errors may have been included. Yours sincerely, Roel Sweeney MD Coding Level of Care Code Est Pt Level 4 (00327) Diagnoses BPH loc w urin obs/LUTS N40.1
--- OUTSIDE RECORDS SUMMARY | 2025-06-30 16:59 | XMS_ITS | Clinical Summary ---
Author Organization [facility] Facility Address [address] [place] [address] Care Team Providers Care It Desktop Support Specialist Name Role Phone Hiram Carrington NP Primary Care Provider Allergies No known active allergies Medications omega-3 [...] Visit [facility] [address] [place], [place] [address] Mil Mcknight MD Chronic kidney disease, stage [...] Visit [facility] [address] [place] [address] Mil Mcknight MD [address] [facility] [address] [place] [address] Health Maintenance Due Date Last [...] [facility] Care Teams It Desktop Support Specialist Relationship Specialty Start Date End Date Hiram Carrington NP 1962 [place], [place] PCP - General Nurse Practitioner 11/06/22
--- OUTSIDE RECORDS SUMMARY | 2025-06-30 16:59 | XMS_ITS | Patient Health Record ---
Author Organization [facility] Address [address] [place] [address] Care Team Providers Care Coal Washer Tender Name Role Phone MICHELLE CLARKE Primary Care [...] Problem Status W/U Status Risk Notes Problem 167582609 Colon cancer screening (Z12.11) Active confirmed Problem 65638206 Encounter for other preprocedural examination (Z01.818) Active confirmed Problem 366901128 Long-term use of aspirin therapy (Z79.82) Active confirmed Problem [id number] jail curren t use of oral hypoglycemic drug (Z79.84) Active confirmed Plan Of Treatment Future Test Test Name Order Date COLONOSCOPY 09/16/2018 COLONOSCOPY 03/13/2023 Insurance Providers Payer Name Payer Address Payer Phone Subscriber Number Group Number Insured Name Patient Relationship to Insured Coverage Start Date Coverage End Date [facility] BC[employer] PROFESSIONAL CLAIMS [address] [place] [address] [id number] PADMINI MALCOLM Self - patient is the insured Medical (General) History Medical History History ICD Code Hyperlipidemia diabetes mellitus hypertension Covid 19 infection AAA Elevated BMI Osteoarthritis CKD 2 Surgical History Surgery Date(Month/Year) appendectomy
== END 2025-06-30 14:02 | disposition home or self-care (01) ==
LOC: HO.HUSH 12:52
PROVIDERS: PCP Nurse Practitioner Family; Visit Provider Urology
DX: R33.9 Retention of urine, unspecified (principal); R35.0 Frequency of micturition; R39.12 Poor urinary stream; N40.1 Benign prostatic hyperplasia with lower urinary tract symptoms
CPT/HCPCS: 99214

== ENCOUNTER → 2025-06-30 12:51 | Outpatient (BNVA) | payer MEDICARE, SELFPAY | PROVIDERS: PCP Nurse Practitioner Family; Visit Provider Urology | DX: Z71.2 Person consulting for explanation of examination or test findings (principal); N40.1 Benign prostatic hyperplasia with lower urinary tract symptoms | CPT/HCPCS: 81003; 99212 ==

== ENCOUNTER 2025-09-21 11:08 | Outpatient (AMB) | payer MEDICARE, SELFPAY ==
--- NOTE | 2025-09-21 11:13 | MHC.OFFVIS ---
Vital Signs 09/21/25 11:18 Height 5 ft 10 in Weight 210 lb BMI 30.1 Intake Visit Reasons: Bilateral shoulder pain Intake Note: Juan Carlos is a 75 year old male who presents with complaints of bilateral shoulder pains. He describes his pains as achy in nature. He has had cortisone injections in the past which gave him fairly good relief. He has also tried Tylenol and anti-inflammatory medicines which gave him minimal relief. He wishes to hold off on surgery if at all possible. He continues to play table tennis for exercise. Allergies cat dander Allergy (Unknown, Verified 09/21/25 11:18) congestion Medication List - Last Reconciled 09/21/25 by Silverio Newby MD amlodipine 10 mg PO DAILY aspirin 81 mg PO DAILY carvedilol 25 mg PO BID chlorthalidone 12.5 mg PO QAM finasteride (Proscar) 5 mg PO DAILY metformin 1,000 mg (2 x 500 mg) PO BID rosuvastatin 20 mg PO BEDTIME sacubitril-valsartan 97-103 mg (Entresto) 1 tab PO BID tamsulosin 0.4 mg PO BEDTIME turmeric mg PO zinc acetate PO PFSH Medical History Kidney stones Renal cysts, acquired, bilateral Periumbilical hernia CAD (coronary artery disease) AAA (abdominal aortic aneurysm) GUTIERREZ (obstructive sleep apnea) Cardiomyopathy HTN (hypertension) Dyslipidemia Surgical History Hx of colonoscopy Hx of appendectomy Family History Father Asthma Bronchitis Mother Lung cancer Social History Household Members Other:: sister Housing: House Are you a primary vision care associate to a significant other at home: No Do you presently have visiting nurse or other home services: No Alcohol intake: never Patient Tobacco Use Status: Never used Tobacco e-Cigarette/Vaping Use: Never Used Second Hand Smoke Exposure: No service: No Current occupational status: retired Cognitive needs: No Hearing needs: No Vision needs: No Physical Exam Vital Signs: BMI result Body Mass Index 30.1 Const Other: Well-nourished well-developed very friendly male awake alert and oriented x3 in no acute distress Extrem Other: Bilateral shoulder examination shows mild crepitus with range of motion, pain with range of motion, no instability Office Procedures AMB Joint Injection/Aspiration Joint Injection/Aspiration Primary Site: Right Shoulder Prep: site was prepped using aseptic technique Injected: 40 mg of, DepoMedrol, with 3 mL of and 1% plain Lidocaine Procedure: The patient tolerated the procedure well Coding - Large joint Procedure code (CPT) selection complete AMB Joint Injection/Aspiration Joint Injection/Aspiration Primary Site: Left Shoulder Prep: site was prepped using aseptic technique Injected: 40 mg of, DepoMedrol, with 3 mL of and 1% plain Lidocaine Procedure: The patient tolerated the procedure well Coding 44664 - Large joint Procedure code (CPT) selection complete Assessment & Plan Assessment & Plan (1) Arthritis of left shoulder region: Code(s): M19.012 - Primary osteoarthritis, left shoulder Category: Medical (2) Arthritis of right shoulder region: Code(s): M19.011 - Primary osteoarthritis, right shoulder Category: Medical (3) Shoulder pain, bilateral: Code(s): M25.511 - Pain in right shoulder; M25.512 - Pain in left shoulder Category: Medical Plan Mr. Steele presents with bilateral shoulder pains due to glenohumeral joint arthritis. The risks and benefits of bilateral shoulder cortisone injections were discussed at length with the patient. The patient wished to proceed. He tolerated the injections well. He will continue with his exercise program. He will contact me prior to his follow-up appointment in 3 months should any questions or concerns arise. Feel free to call me at any time should questions regarding his orthopedic management arise. I spent 22 minutes in reviewing the patient's records and imaging studies, seeing the patient and documenting in the medical record. Orders: Orders AMB Joint Injection/Aspiration Today M19.012 - Primary osteoarthritis, left shoulder AMB Joint Injection/Aspiration Today M19.011 - Primary osteoarthritis, right shoulder Coding Level of Care Code Est Pt Level 3 (20555) Complex visit Add On G2211 Diagnoses Arthritis of left shoulder region M19.012 Arthritis of right shoulder region M19.011 Shoulder pain, bilateral M25.511; M25.512 CPT Codes Coding - 82793 Large joint: 76299 - Large joint ([id number]) Coding - 93297 Large joint: 60143 - Large joint ([id number])
[2025-09-21 11:18] VITALS: BMI 30.1
--- OUTSIDE RECORDS SUMMARY | 2025-09-21 13:20 | XMS_ITS | Patient Health Record ---
Author Organization [facility] Address [address] [place] [address] Care Team Providers Care Tapper Hand Name Role Phone MICHELLE CLARKE Primary Care Provider Sid Manley Jr [phone] Allergies No Known Allergies Reason For Referral No Information Medications Medication SIG (Take, Route, Frequency, Duration) Notes Start Date End Date Status Atenolol 25 MG Tablet TAKE 1 TABLET BY M OUTH EVERY DAY Oral Once a day Active Fish Oil 1200 MG Capsule 1 capsule Orall y Once a day; Duration: 30 day(s) twice a day Active amLODIPine Besy-Benazepril HCl 2.5-10 MG Capsule as directed Orally Acti ve Ibuprofen 200 MG Tablet 1 tablet with fo od or milk as needed Orally Three times a day Active Zinc 50 MG Tablet 1 tablet Orally Once a day Active Metoprolol Succinate 25 MG Capsule ER 24 Hour Sprinkle 1 capsule Orally Once a day; Duration: 30 day(s) Active Aspirin 81 81 MG Tablet Delayed Release 1 tablet Orally Once a day; Duration: 30 day(s) Active Vitamin D3 2000 UNIT Capsule 1 capsule Orally Once a day Active Carvedilol 6.25 MG Tablet 1 tablet with food Orally Twice a day; Duration: 30 day(s) Active Vitamin B Complex-C - Capsule one capsule Orally once a day Active Lisinopril 20 MG Tablet TAKE 1 TABLET BY MOUTH EVERY DAY Oral Once a day Active amLODIPine Besylate 10 MG Tablet TAKE 1 TABLET EVERY DAY Oral Once a day Active MiraLax (colon prep) 17 GM/SCOOP Powder mixed with Gatorade or Crystal Light Orally begin at 5:00 p.m. the day before the procedure; Duration: 1 day 03/13/2023 Active Simvastatin 40 MG Tablet TAKE 1 TABLET B Y MOUTH EVERY DAY IN THE EVENING Oral Once a day Active metFORMIN HCl ER 500 MG Tablet Extended Release 24 Hour TAKE 2 TABLETS TWICE A DAY ORALLY Oral twice a day Active Immunizations Vaccine Route Administration Date Status Comme nts Flu vaccine no Preserv 3 and > Unknown 09/16/2018 Refus ed Influenza Unknown 09/10/2022 Administered Social History Tobacco Use: Social History Observation Description Date Details (start date - stop date) Never Smoker NA - NA Social History Drugs/Alcohol: Social Info Question Answer Notes Alcohol Screen Did you have a drink containing alcohol in the past year? No Points 0 Interpretation Negative Tobacco Use: Social Info Question Answer Notes Tobacco Use/Smoking Patient is a nonsmoker Additional Details Category Social Info Options Details Miscellaneous: Marital status: Occupation: retired Problems Problem Type SNOMED Code ICD Code Onset Dates Problem Status W/U Status Risk Notes Problem Colon cancer screening (909960848) Colon cancer screening (Z12.11) Active confirmed Problem Pre-procedure evaluation check (026316812) Encounter for other preprocedural examination (Z01.818) Active confirmed Problem Long-term current use of antiplatelet drug (282175563640745 ) Long-term use of aspirin therapy (Z79.82) Active confirmed Problem Long-term current use of drug therapy (660082653) ore fielder current use of oral hypoglycemic drug (Z79.84) Active confirmed Plan Of Treatment Future Test Test Name Order Date COLONOSCOPY 09/16/2018 COLONOSCOPY 03/13/2023 Insurance Providers Payer Name Payer Address Payer Phone Subscriber Number Group Number Insured Name Patient Relationship to Insured Coverage Start Date Coverage End Date [facility] PROFESSIONAL CLAIMS [address] [place] [address] [id number] PADMINI MALCOLM Self - patient is the insured Medical (General) History Medical History History ICD Code Hyperlipidemia diabetes mellitus hypertension Covid 19 infection AAA Elevated BMI Osteoarthritis CKD 2 Surgical History Surgery Date(Month/Year) appendectomy
== END 2025-09-21 11:35 | disposition home or self-care (01) ==
LOC: HO.HOS 11:10
PROVIDERS: PCP Nurse Practitioner Family; Visit Provider Orthopaedic Surgery
DX: M19.012 Primary osteoarthritis, left shoulder (principal); M19.011 Primary osteoarthritis, right shoulder; M25.511 Pain in right shoulder; M25.512 Pain in left shoulder
CPT/HCPCS: 20610; 99213

== ENCOUNTER → 2025-09-21 11:08 | Outpatient (BNVA) | payer MEDICARE, SELFPAY | PROVIDERS: PCP Nurse Practitioner Family; Visit Provider Orthopaedic Surgery | DX: M19.012 Primary osteoarthritis, left shoulder (principal); M19.011 Primary osteoarthritis, right shoulder; M25.511 Pain in right shoulder; M25.512 Pain in left shoulder | CPT/HCPCS: 20610; 99212; J1010; J2003 ==

== ENCOUNTER 2025-10-11 12:38 | Outpatient (AMB) | payer MEDICARE, SELFPAY ==
[2025-10-11 12:42] VITALS: BP 112/60; PULSE 56; TEMP 36.6; O2SAT 97; BMI 30.1
--- NOTE | 2025-10-11 12:42 | MHC.PC.OV ---
Vital Signs 10/11/25 12:42 Height 5 ft 10 in Weight 210 lb BMI 30.1 BP 112/60 Blood Pressure Location Lt brachial Position Sitting Pulse 56 Pulse Source Pulse Oximeter Temp 97.8 F Temp Source Oral Pulse Oximetry (%) 97 Oxygen Delivery Method Room Air Intake Visit Reasons: 6 months [employer] And Recausticizing Operator Required: No Allergies cat dander Allergy (Unknown, Verified 10/11/25 13:22) congestion Medication List - Last Reconciled 10/11/25 by DEVON Townsend- aspirin 81 mg PO DAILY Bacillus coagulans cells PO carvedilol 25 mg PO BID chlorthalidone 12.5 mg PO QAM finasteride (Proscar) 5 mg PO DAILY metformin 1,000 mg (2 x 500 mg) PO BID rosuvastatin 20 mg PO BEDTIME sacubitril-valsartan 97-103 mg (Entresto) 1 tab PO BID tamsulosin 0.4 mg PO BEDTIME turmeric mg PO zinc acetate PO Tobacco use date assessed: 10/11/25 Fall risk assessment: No Falls in past year Last assessed Fall Risk: 10/11/25 Dental Screening Dental Screen Date: 10/11/25 Did you have a dental visit in the last 12 months?: No Did you have a dental problem in the last 6 months where you did not have access to dental care?: No Was dental information given to patient?: Patient declined HPI 6 months HPI Details Chief Complaint The patient presents for a follow-up on his diabetes. History of Present Illness The patient is a 75 year old male presenting for a follow-up visit for diabetes. His hemoglobin A1c is 7.1, which is an improvement from his previous value of 7.2. He reports not taking metformin daily due to experiencing diarrhea as a side effect. He denies any history of neuropathy, chest pain, or shortness of breath. The patient's microalbumin and eye exams are up to date. Social History Health Maintenance - Microalbumin screening is up to date. - Eye exam is up to date. - Hemoglobin A1c is 7.1, down from 7.2 Review of Systems - Cardiovascular: Denies chest pain. - Respiratory: Denies shortness of breath. - Neurological: Denies symptoms of neuropathy. - Gastrointestinal: Reports diarrhea associated with metformin use. Physical Exam General: Cooperative, healthy appearing, comfortable, no acute distress and well developed Orientation: Patient oriented x3 Limitations: No limitations Head: Normal to inspection Ears: Hearing grossly normal bilaterally Nose: Normal external nose present Face and sinus: Normal facial exam Eyes: Appearance normal, both eyes and all related structures Neck: Normal visual inspection and Yes full ROM Respiratory: Normal respiratory effort and able to speak in complete sentences. Clear to auscultation bilaterally Cardiovascular: Regular rate and rhythm. Normal S1 and S2 GI: Normal to inspection. Soft to palpation and nontender Skin: No rashes or lesions noted Neuro: Patient oriented x3 Extremities: Positive sensation on foot exam due to some monofilament, but lack of sensation with 128 hertz except to toes of the left foot. Feet were intact otherwise. Results - Labs: Hemoglobin A1c is 7.1, down from 7.2. - Microalbumin is up to date. - Tests and Diagnostics: Eye exam is up to date. Plan 1. Diabetes Mellitus The patient's hemoglobin A1c is stable at 7.1, improved from 7.2. He reports non-adherence with metformin due to diarrhea. He will be switched to metformin extended-release to improve tolerance. A follow-up is scheduled in 4 months. 2. Diabetic Neuropathy Although the patient denies symptoms of neuropathy, the physical exam revealed a lack of sensation to the 128 Hz tuning fork in the toes of the left foot. Sensation to monofilament was intact. Discussion Notes I noted the patient's hemoglobin A1c has improved to 7.1 from 7.2. We discussed his difficulty with metformin, which causes diarrhea, leading to non-adherence. I am switching him to metformin extended-release to address this side effect. I have scheduled a follow-up appointment in 4 months. encouraged him to have labs drawn in the near future Patient Instructions - You will be switched from your current metformin to an extended-release version to help with the diarrhea you have been experiencing. - Please schedule a follow-up appointment in 4 months to check on your progress. [facility] Medical History Kidney stones Renal cysts, acquired, bilateral Periumbilical hernia CAD (coronary artery disease) AAA (abdominal aortic aneurysm) GUTIERREZ (obstructive sleep apnea) Cardiomyopathy HTN (hypertension) Dyslipidemia Surgical History Hx of colonoscopy Hx of appendectomy Family History Father Asthma Bronchitis Mother Lung cancer Social History Household Members Other:: sister Housing: House Are you a primary medicare insurance specialist to a significant other at home: No Do you presently have visiting nurse or other home services: No Alcohol intake: never Patient Tobacco Use Status: Never used Tobacco e-Cigarette/Vaping Use: Never Used Second Hand Smoke Exposure: No service: No Current occupational status: retired Cognitive needs: No Hearing needs: No Vision needs: No Questionnaire PHQ-9 Over the last 2 weeks, how often have you been bothered by any of the following problems? 1. Little interest or pleasure in doing things: not at all 2. Feeling down, depressed, or hopeless: not at all 3. Trouble falling or staying asleep, or sleeping too much: not at all 4. Feeling tired or having little energy: not at all 5. Poor appetite or overeating: not at all 6. Feeling bad about yourself - or that you are a failure or have let yourself or your family down: not at all 7. Trouble concentrating on things, such as reading the newspaper or watching television: not at all 8. Moving or speaking so slowly that other people could have noticed. Or the opposite - being so fidgety or restless that you have been moving around a lot more than usual: not at all 9. Thoughts that you would be better off or of hurting yourself in some way: not at all Total score: 0 Depression Screening Interpretation: Negative Depression Screening Done: Yes 87304 - PHQ-9 Billing: Yes Source: Developed by Drs. Juan Carlos Hale, Drea Mckinney, Krish Menjivar and colleagues, with an educational richelle from [employer]. Thrive Questionnaire Date Thrive assessed: 01/05/25 I am a: Patient What is your living situation today?: I have a steady place to live Within the past 12 months, did the food you bought not last and you didn't have the money to get more?: Never true Within the past 12 months, did you worry whether your food would run out before you got money to buy more?: Never true Do you have trouble paying for medicines?: No Do you have trouble getting transportation to medical appointments?: No Do you have trouble paying your heating and electricity bill?: No Do you have trouble taking care of your child, family member or friend?: No Do you have trouble with day-to-day activities such as bathing, preparing meals, shopping, managing finances, etc.?: No Are you currently unemployed and looking for a job?: No Are you interested in more education?: No Currently or been in a relationship where the following occur: No concerns reported THRIVE Score: 0 AUDIT C Alcohol Use Questionnaire (AUDIT-C) 1. How often do you have a drink containing alcohol?: Monthly or less 2. How many drinks containing alcohol do you have on a typical day when you are drinking?: 1 or 2 3. How often do you have six or more drinks on one occasion?: Never Total Score: 1 Score Reviewed/Action Taken: Yes MARCIAL-7 AMB Questionnaire MARCIAL-7 Date MARCIAL - 7 assessed: 01/05/25 Feeling nervous, anxious, or on edge: 0 = Not at all Not being able to stop or control worryin = Not at all Worrying too much about different things: 0 = Not at all Trouble relaxin = Not at all Being so restless that it is hard to sit still: 0 = Not at all Becoming easily annoyed or irritable: 0 = Not at all Feeling afraid as if something awful might happen: 0 = Not at all Total MARCIAL-7 score (0-4 normal; 5-9 mild; 10-14 moderate; 15-21 severe): 0 Source: Developed by Drs. Juan Carlos Hale, Drea Mckinney, Krish Menjivar and colleagues, with an educational richelle from [employer]. Physical exam (Primary Care) Vital Signs: Last Vital Signs Temp 97.8 F 10/11/25 12:42 Pulse 56 10/11/25 12:42 BP 112/60 10/11/25 12:42 Pulse Ox 97 10/11/25 12:42 Oxygen Delivery Method Room Air 10/11/25 12:42 BMI result Body Mass Index 30.1 Tobacco/Smoking Status: Tobacco use Status Tobacco use date assessed 10/11/25 10/11/25 12:48 Patient Tobacco Use Status Never used Tobacco 10/11/25 12:48 e-Cigarette/Vaping Use Never Used 10/11/25 12:48 PHQ-9: PHQ-9 Score PHQ-9: Total score 0 10/11/25 12:56 Depression Screening Interpretation: Negative Thrive Assessment: Date of Thrive Assessment Date Thrive assessed 01/05/25 10/11/25 12:48 Currently or been in a relationship where the following occur: No concerns reported Office Procedures Diabetic Foot Exam Details: can feel sensation throughout with monofilament, minimal feeling with use of 128 hertz G9226 - Diabetic Foot Exam Results AMB Hemoglobin A1c AMB Hemoglobin A1c 7.1 % Last Edit by Mae Amaya CMA on 10/11/25 13:05 Results Reviewed Results Reviewed: Laboratory Last Values Hgb A1c (Clinic) 7.1 % (4.0-6.0) H 10/11/25 12:54 Coding Level of Care Code Est Pt Level 3 (57741) Diagnoses Diabetes E11.9 CPT Codes Diabetic Foot Exam - CPT: G9226 - Diabetic Foot Exam ([id number]) Additional Codes PHQ-9 - 70714 - PHQ-9 Billing: Yes ([id number]) Assessment & Plan Assessment & Plan (1) Diabetes: Code(s): E11.9 - Type 2 diabetes mellitus without complications Category: Medical Plan . Orders: Orders AMB Hemoglobin A1c Today E11.9 - Type 2 diabetes mellitus without complications Complete Blood Count Auto Diff Today E11.9 - Type 2 diabetes mellitus without complications Comprehensive [place]. Panel Fast Today E11.9 - Type 2 diabetes mellitus without complications UA CC w/rflx Micro + Cult Today E11.9 - Type 2 diabetes mellitus without complications Lipid Panel Today E11.9 - Type 2 diabetes mellitus without complications TSH reflex Free T4 Today E11.9 - Type 2 diabetes mellitus without complications Medications: New metformin ER (Glucophage XR) 1,000 mg (2 x 500 mg) PO BID 120 tabs 3RF 30 days Discontinued metformin Discontinued Reason: Doctor's Order 1,000 mg (2 x 500 mg) PO BID 360 tabs 1RF
--- OUTSIDE RECORDS SUMMARY | 2025-10-11 13:42 | XMS_ITS | Patient Health Record ---
Author Organization [facility] Address [address] [place] [address] Care Team Providers Care Loan Servicing Officer Name Role Phone MICHELLE CLARKE Primary Care [...] Status Risk Notes Problem Colon cancer screening (931771291) Colon cancer screening (Z12.11) Active confirmed Problem Pre-procedure evaluation check (921778310) Encounter for other preprocedural examination (Z01.818) Active confirmed Problem Long-term current use of antiplatelet drug ([id number] ) Long-term use of aspirin therapy (Z79.82) Active confirmed Problem Long-term current use of drug therapy (193363420) watermelon inspector current use of oral hypoglycemic drug (Z79.84) Active confirmed Plan Of Treatment Future Test Test Name Order Date COLONOSCOPY 09/16/2018 COLONOSCOPY 03/13/2023 Insurance Providers Payer Name Payer Address Payer Phone Subscriber Number Group Number Insured Name Patient Relationship to Insured Coverage Start Date Coverage End Date [facility] [employer] [address] [place] [address] [id number] PADMINI MALCOLM Self - patient is the insured Medical (General) History Medical History History ICD Code Hyperlipidemia diabetes mellitus hypertension Covid 19 infection AAA Elevated BMI Osteoarthritis CKD 2 Surgical History Surgery Date(Month/Year) appendectomy
--- OUTSIDE RECORDS SUMMARY | 2025-10-11 13:42 | XMS_ITS | Clinical Summary ---
Author Organization [facility] Facility Address [address] [place] [id number] Care Team Providers Care Retina Subspecialist Name Role Phone Hiram Carrington NP Primary Care Provider [phone] Allergies No known active allergies Medications omega-3 [...] disorder due to type 2 diabetes mellitus <Unspecified DM Medication; Diabetic nephropathy> (HCC) Take 10 mg by mouth 1 (one) time each day Active tamsulosin (FLOMAX) 0.4 MG 24 hr capsuleIndicatio ns:Chronic kidney disease, stage 2 (mild),Stage 3a chronic kidney disease (HCC),Persistent proteinuria,Rosana l disorder due to type 2 diabetes mellitus <Unspecified DM Medication; Diabetic nephropathy> (HCC) Take 0.4 mg by mouth 1 (one) time each day Active Dapagliflozin Propanediol (Farxiga) 10 MG tabletIndication s:Chronic kidney disease, stage 2 (mild),Stage 3a chronic kidney disease (HCC),Persistent proteinuria,Rosana l disorder due to type 2 diabetes mellitus <Unspecified DM Medication; Diabetic nephropathy> (HCC) Take 10 mg by mouth 1 (one) time each day in the morning Active Veltassa 8.4 g packIndications: Chronic kidney disease, stage 2 (mild),Stage 3a chronic kidney disease (HCC),Persistent proteinuria,Rosana l disorder due to type 2 diabetes mellitus <Unspecified DM Medication; Diabetic nephropathy> (HCC) DISSOLVE 1 PACKET (8.4 GRAMS) [...] Visit [facility] [address] [place] [address] Mil Mcknight MD [address] [facility] [address] [place] [address] Health Maintenance Due Date Last Done Comments Pneumococcal Vaccine: 50+ Years (1 of 2 - PCV) 1969 Diabetes: Hemoglobin A1C 11/20/2020 Diabetes: Ophthalmology Exam 11/20/2020 Diabetes: Pedal Pulse Checked 11/20/2020 Diabetes: Sensory Foot Exam 11/20/2020 Diabetes: Visual Foot Exam 11/20/2020 Influenza Vaccine (#1) 2025 2, 09/25/2021, 07/18/2020 Hepatitis B Vaccine Aged Out No longe r eligible based on patient's age to complete this topic Insurance [facility] Care Teams Retina Subspecialist Relationship Specialty Start Date End Date Hiram Carrington NP [address] [place] [address] PCP - General Nurse Practitioner 11/06/22
== END 2025-10-11 13:37 | disposition home or self-care (01) ==
LOC: HO.HMCC 12:38
PROVIDERS: PCP Nurse Practitioner Family; Visit Provider Nurse Practitioner Family
DX: E11.9 Type 2 diabetes mellitus without complications (principal)

== ENCOUNTER → 2025-10-11 12:38 | Outpatient (BNVA) | payer MEDICARE, SELFPAY | PROVIDERS: PCP Nurse Practitioner Family; Visit Provider Nurse Practitioner Family | DX: E11.40 Type 2 diabetes mellitus with diabetic neuropathy, unspecified (principal); Z13.31 Encounter for screening for depression | CPT/HCPCS: 83036; 96127; 99212 ==